=== PATIENT | female | born 1935 | race Hispanic/Latino ===

== ENCOUNTER 2016-08-27 17:42 | Inpatient (IN) | payer MEDICARE, MEDICAID ==
[~2016-08-27] VITALS: Ht 142.2 cm; Wt 39.0 kg
[~2016-08-27 17:42] MED LIST: ASPI81TA3 PO; CARV3.12 PO; DORZ10DR20 BOTH_EYES; LATA2.5D6; LOSA50TA37 PO; PRAV20TA2 PO; SYN75 PO
[2016-08-27 17:48] VITALS: BP 211/85; PULSE 99; RESP 16; O2SAT 92
[2016-08-27] MEDS ORDERED: METF500T4 PO (18:10)
[2016-08-27] MEDS ORDERED: FUR20 PO (18:10)
[2016-08-27] MEDS ORDERED: LATA2.5D6 BOTH_EYES (18:10)
--- NOTE | 2016-08-27 18:11 | ED.REPORT ---
HPI-General Illness Date of Service Aug 27, 2016 ED Provider: Kylie Corcoran MD An 81 year old female with a history of diabetes, hypothyroidism, HTN, valvular heart disease, and CHF presents to the ED complaining of weakness,altered mental status and mildly productive cough. fever onset 2 days ago, noted at 103 in triage today. Per daughter, today the weakness is so severe that the patient is unable to walk and has difficulty even sitting up. Per daughter, the patient can normally stand on her own. The patient also has a wound on her right ankle, having gone to wound clinic 4 days ago for treatment, and being seen by provider at her home for the wound 2 days ago. The daughter changed the wound dressings this morning. Nursing Notes Stated Complaint: WEAKNESS/FEVER/NUMBNESS Chief Complaint: General Complaint Nursing Notes Reviewed: Yes Allergies: Coded Allergies: Penicillins (Verified Allergy, Intermediate, Hives, 08/27/16) ciprofloxacin (Verified Allergy, Unknown, MD REQUESTED PT TO D/C - UNKNOWN WHY, 08/27/16) Scheduled Carvedilol (Coreg) 3.125 Mg Tablet 3.125 MG PO BID Dorzolamide HCl/Timolol Maleat (Dorzolamide-Timolol Eye Drops) 10 Ml Drops 1 GTT BOTH_EYES BID Furosemide (Furosemide) 20 Mg Tab 20 MG PO Q48H Latanoprost (Latanoprost) 2.5 Ml Drops 1 GTT BOTH_EYES HS Levothyroxine (Synthroid) 75 Mcg Tablet 75 MCG PO DAILYAC Losartan Potassium (Losartan Potassium) 50 Mg Tablet 50 MG PO DAILY Metformin (Metformin) 500 Mg Tablet 500 MG PO BIDWM Pravastatin (Pravastatin) 20 Mg Tablet 20 MG PO HS Scheduled PRN Aspirin (Aspirin) 81 Mg Tablet 81 MG PO DAILY PRN PRN PAIN/FEVER General Time Seen by MD: 18:02 Chief Complaint Weakness Hx Obtained From: Patient, Daughter, Other family... Arrived By: Walk-in Sudden in Onset?: No Symptom Duration: 2 days Severity: Current: Moderate Severity: Maximum: Moderate Recent Healthcare: Recent doctor visit Similar Sx Previous: No Past Medical History Past Medical History congestive heart failure chronic 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 hypothyroidism carotid artery disease with stenosis prolonged QT with syncope h/o hyponatremia hx of pericardial effusion arthritis valvular heart disease Denies history of [place] Reports: Diabetes mellitus, Hyperlipidemia, Hypertension, Denies: Stroke Reports: Depression Past Surgical History None Smoking History Never Smoker Social History currently living with daughter Alcohol Use: Denies alcohol use Drug Use: Denies drug use Other Social History: Good social support, , Lives with children Ambulatory Status Wheelchair Review of Systems Full Review of Systems Constitutional: Reports: Fatigue, Fever, Lethargy, Malaise, Weakness - generalized Respiratory: Reports: Prod cough, clear (sputum color not given) Neurologic: Reports: Weakness Complete sys rev & neg: except as marked. Physical Exam Vital Signs Vital Signs Date Time Temp Pulse Resp B/P Pulse Ox O2 Delivery O2 Flow Rate FiO2 08/27/16 20:19 100 17 96/48 96 Nasal Cannula 2 08/27/16 18:38 103 17 197/81 100 Nasal Cannula 2 08/27/16 17:48 39.5 99 16 211/85 92 Room Air Initial VS: Reviewed Alertness: Positive: Lethargic Distress / Hydration: Positive: Distress moderate Appearance / Presentation: Positive: Frail Head / Eyes: Atraumatic, Normocephalic, PERRL, EOMI Mouth: Positive: Mucous membranes dry Neck: Atraumatic, No JVD Respiratory / Chest: No respiratory distress Crackles in left base. Scattered wheezing in upper lobes anteriorly. Oxygen sat are 97%, no respiratory distress. Cardiovascular: Heart rate NL, Regular rhythm, Heart sounds NL Patient is well perfused. No lower extremity edema. Abdomen: Soft Back: Atraumatic, Full range of motion ulcer lateral malleolus Right side. 1x1cm, shallow, healing nicely. NO surrounding erythema Skin: Warm Perioral cyanosis. 1x1 cm shallow ulcer that is dressed on right lateral malleolus that is not infected and appears to be healing nicely. Mental Status: Positive: Lethargic Interpretation & Diagnostics Lab Results Interpretation Result Diagram: 08/27/16 1803 08/27/16 1803 Test 08/27/16 18:03 08/27/16 18:15 08/27/16 18:34 White Blood Count 19.8th/mm3 (3.8-10.1) Red Blood Count 4.34mil/mm3 (3.90-5.20) Hemoglobin 12.2g/dL (12.0-15.6) Hematocrit 37.0% (35.0-46.0) Mean Corpuscular Volume 85.3fL (81-100) Mean Corpuscular Hemoglobin 28.1pg (27.0-35.0) Mean Corpuscular Hemoglobin Concent 33.0% (32.0-37.0) Red Cell Distribution Width 14.1% (12.3-15.4) Platelet Count 255bil/L (150-400) Neutrophils (%) (Auto) 73.6% (40-74) Lymphocytes (%) (Auto) 15.5% (14-46) Monocytes (%) (Auto) 8.8% (4-12) Eosinophils (%) (Auto) 1.2% (0-5) Basophils (%) (Auto) 0.5% (0-3) Sodium Level 124mEq/L (134-144) Potassium Level 4.5mEq/L (3.5-5.2) Chloride Level 89mEq/L (97-108) Carbon Dioxide Level 19mmol/L (18-29) Blood Urea Nitrogen 21mg/dL (8-27) Creatinine 0.81mg/dL (0.57-1.00) Estimat Glomerular Filtration Rate 97mL/min (>59) Glucose Level 126mg/dL (60-99) Calcium Level 9.3mg/dL (8.5-10.1) Total Bilirubin 1.3mg/dL (0.0-1.2) Aspartate Amino Transf (AST/SGOT) 15U/L (0-50) Alanine Aminotransferase (ALT/SGPT) 8U/L (0-32) Alkaline Phosphatase 91U/L (25-165) Troponin T < 0.010ug/L (0.0-0.011) Pro-B-Type Natriuretic Peptide 1816pg/mL (0-738) Total Protein 8.9g/dL (6.4-8.4) Albumin 4.1g/dL (3.4-5.0) Procalcitonin 0.08ng/mL (0.00-0.08) Urine Legionella pneumophilia Ag Negative (Negative) Urine Color Yellow (YELLOW) Urine Appearance Clear (CLEAR,HAZY) Urine pH 6.0 (5.0-8.0) Urine Specific [place] 1.020 (1.003-1.035) Urine Protein Negativemg/dL (NEG,TRACE) Urine Glucose (UA) Negativemg/dL (NEGATIVE) Urine Ketones 15mg/dL (NEGATIVE) Urine Occult Blood Trace (NEGATIVE) Urine Nitrite Negative (NEGATIVE) Urine Bilirubin Negative (NEGATIVE) Urine Urobilinogen Normalmg/dL (NORMAL) Urine Leukocyte Esterase Negative (NEGATIVE) Urine RBC 0-2/hpf (0-2) Urine WBC 0-5/hpf (0-5) Urine Epithelial Cells Occasional/hpf (NONE-MOD) Urine Crystals None seen (NONE SEEN) Urine Bacteria None/hpf (NONE-FEW) Urine Hyaline Casts None/lpf (NONE) Urine Granular Casts None seen (NONE SEEN) Urine Waxy Casts None seen (NONE SEEN) Urine Red Blood Cell Casts None seen (NONE SEEN) Urine White Blood Cell Casts None seen (NONE SEEN) Urine Mucus None seen (None Seen) Urine Trichomonas None seen (NONE SEEN) Urine Yeast None (NONE SEEN) Urinalysis Comment None Urine Culture Reflexed Not indicated ECG Interpretation ECG Interpretation: Rate is 109. Sinus tachycardia. LVH with lateral ST depression. No STEMI. New compared to one year ago. Time: 19:04 Interpreted by: ED physician X-Ray Chest Interpretation Chest Xray Interpretation: IMPRESSION: Chronic interstitial changes. Dictated by: Angelina Olea M.D. on 08/27/2016 at 18:34 Approved by: Angelina Olea M.D. on 08/27/2016 at 18:35 Interpretation / Wet Read by: Wet read ED physician (In light of exam, hisotry and presentation I believe she is developing a Right lower lobe pneumonia. ), Interpret - Radiologist Re-Eval/Medical Decision Med Decision/Clinical Course 81-year-old woman presents with fever to 103 altered mental status tachycardia and pulmonary findings suggestive of a developing pneumonia with mildly productive cough and slightly altered mental status. Fluids and antibiotics are started. No evidence of STEMI. Some suggestion of mild heart failure. lactic acid is not elevated. Over the course of her emergency room stay her significantly elevated systolic pressure came down to the 80s. Additional fluid was given which she responded to nicely. Upgraded admission status to PCU due to noted developing hypotension. Source of Hx: Old records Time of Eval: 20:00 Patient Status: Condition unchanged Time of Eval: 20:26 Re-Evaluation/Progress Note: Rechecked patient. Blood pressure is in 90's systolic range with MAP of 63 which is signifigantly changed from inital blood pressure. Will do one more liter of fluid, take a second line and admit her to second floor of the hospital. Hospitalist is updated. Consultation #1: Referral / Consult Name: Kong Sosa MD Consulted With: Hospitalist Call Returned at: 20:11 Washing Machine Loader: Agrees with eval, Agrees with plan, Accepts admit Note: Discussed patient case with Dr. Sosa who accepts patient admit. Consultation #2: Consulted With: Hospitalist Call Returned at: 21:06 Note: updated on drop in BP and responsiveness to fluids. Will anticipate 2nd floor admit. Discharge & Departure Primary Impression: Sepsis Additional Impressions: Altered mental status Hyponatremia Pneumonia Disposition: ADMITTED TO HOSPITAL Referrals: Bessie Valdivia DO (PCP) Rayray Attestation Portions of this note were transcribed by Cecil Newman. I, Dr. Corcoran personally performed the history, physical exam and medical decision-making; I reviewed and confirmed the accuracy of the information in the transcribed note. Signed by: Rayray Aggarwal, 08/27/20162035. copies to: Bessie Valdivia Shawna L MD Aug 27, 2016 18:11 Cecil Newman Aug 27, 2016 18:21
[2016-08-27] MEDS ORDERED: ASPI-973 PO (18:12)
[2016-08-27] MEDS ORDERED: 0.9% Sodium Chloride 1,000 ML IV ONE ×3 (18:15→21:15)
[2016-08-27] MEDS ORDERED: cefTRIAXone Inj 2,000 MG in Dextrose 5% Minibag Plus 50 ML IV ONE (18:15)
[2016-08-27] MEDS ORDERED: Azithromycin Inj 500 MG in Dextrose 5% w/Vial Mate 250 ML IV ONE (18:15)
[2016-08-27 18:36] LABS: EOSINOPHILS % (AUTO) 1.2 % (0-5)
--- NOTE | 2016-08-27 18:36 | DRSVH ---
PROCEDURE: X-RAY CHEST ONE VIEW, PORTABLE ([id number]) INDICATIONS: cough TECHNIQUE: One view of the chest was acquired. COMPARISON: [facility], CR, XR CHEST 1VW (PORTABLE), 09/30/2015, 22:10. FINDINGS: Surgical changes and devices: None. Lungs and pleura: Chronic interstitial changes and calcified left upper lobe nodule are present. Mediastinum: Mediastinal contours appear normal. Heart size is normal. Bones and chest wall: No suspicious bony lesions. Overlying soft tissues appear unremarkable. IMPRESSION: Chronic interstitial changes. Dictated by: Angelina Olea M.D. on 08/27/2016 at 18:34 Approved by: Angelina Olea M.D. on 08/27/2016 at 18:35
[2016-08-27 18:38] VITALS: BP 197/81; PULSE 103; RESP 17; O2SAT 100
[2016-08-27 18:39] LABS: BASOPHILS % (AUTO) 0.5 % (0-3); MONOCYTES % (AUTO) 8.8 % (4-12); Mean Corpuscular Hemoglobin 28.1 pg (27.0-35.0); Mean Corpuscular Volume 85.3 fL (81-100); NEUTROPHILS % (AUTO) 73.6 % (40-74); Platelet Count 255 bil/L (150-400)
[2016-08-27 19:10] LABS: APPEARANCE,URINE CLEAR (CLEAR,HAZY); COLOR,URINE YELLOW (YELLOW); OCCULT BLOOD,URINE TRACE (NEGATIVE); UROBILINOGEN,URINE NORMAL (NORMAL)
[2016-08-27 19:15] LABS: TROPONIN T < 0.010 ug/L (0.0-0.011)
[2016-08-27 20:19] VITALS: BP 96/48; PULSE 100; RESP 17; O2SAT 96
[2016-08-27] MEDS ORDERED: Polyethylene Glycol (PEG) 17 Gm Powder PO PRN (20:25)
[2016-08-27] MEDS ORDERED: Alum-Mag Hydrox-Simeth 30 mL Suspension PO PRN (20:25)
[2016-08-27] MEDS ORDERED: Albuterol-Ipratropium 3 mL Inhalation Solution NEB PRN (20:25)
[2016-08-27] MEDS ORDERED: Glucose 40% Oral Gel 15 Gm Tube PO PRN (20:25)
[2016-08-27 21:43] VITALS: BP 118/65; PULSE 102; RESP 18; O2SAT 96
[2016-08-27 21:49] VITALS: BP 119/53; PULSE 89; PULSE 92; RESP 18; O2SAT 99
[2016-08-27] MEDS: Insulin LISPRO 300 Unit/3 mL Inj SUBQ SCH (22:00)
[2016-08-27] MEDS: Famotidine Inj 20 MG in IV Premix 1 EACH IV SCH (22:31)
--- NOTE | 2016-08-27 22:51 | NUR ---
Admit To floor from ED at 2145, accompanied by family members. Alert and oriented, but too weak to stand for transfer to bed. Russian speaking only. Family members interpreting for her and declined offered first aid attendant services. daughter to stay the night with her. Pt c/o chronic back pain, stating it's not too bad right now, rating it a 5/10. Heating pad applied to back and helpful. Sats on 2 liters are 99%. Unable to produce sputum sample yet. Viral PCR sent to lab. Has wound to right outer ankle, sustained during fall during trip to [place] in June. Family state she sees wound care and has visiting nurse for dressing changes. Currently dressed with a square of medicated gauze, foam, and kerlix. Will notify wound care of admit. Plan of care explained to family and patient, and no questions at this time.
[2016-08-27] MEDS: Doxycycline Inj 100 MG in Dextrose 5% Minibag Plus 100 ML IV SCH (23:05)
[2016-08-27] MEDS: predniSONE 20 mg Tablet PO SCH (23:14)
--- NOTE | 2016-08-27 23:37 | PCM.HPMED ---
Subjective Date of Service Aug 27, 2016 Primary Provider: Admitting Physician: Primary Care Physician: Bessie Valdivia DO Attending Physician: Chief Complaint: weakness fever numbness History of Present Illness: Patient is a 81 year old female with a history of diabetes, hypothyroidism, HTN , valvular heart disease, and CHF, chronic back pain, hungarian speaking only. She presented to the ED with family complaining of weakness, productive cough with a little amount of sputum, and fever onset 2 days ago. Associated with painful cough, runny nose, myalgias. Daughter reported that today the weakness is so severe that the patient is unable to walk and has difficulty even sitting up, but the patient can normally stand on her own. Patient has taken tylenol for pain and fever which helped minimally. Additionally, patient stated that she has a wound on her right ankle and chronic back pain. Patient is followed by the wound clinic and was seen four days ago. Patient seen by PCP two days ago for wound check and upper respiratory symptoms advised patient to go to ED should symptoms not improve. Patient described her weakness as all over, previously able to ambulate with minimal assistance. Patient denies syncope, dysuria, constipation, diarrhea, nausea, vomiting, blood in cough, blood in stool. Review of Systems: A comprehensive review of systems was conducted with the patient and found to be negative except as above in the History of Present Illness. Allergies Coded Allergies: Penicillins (Verified Allergy, Intermediate, Hives, 08/27/16) ciprofloxacin (Verified Allergy, Unknown, MD REQUESTED PT TO D/C - UNKNOWN WHY, 08/27/16) Home Medications Carvedilol (Coreg) 3.125 Mg Tablet 3.125 MG PO BID Dorzolamide HCl/Timolol Maleat (Dorzolamide-Timolol Eye Drops) 10 Ml Drops 1 GTT BOTH_EYES BID Furosemide (Furosemide) 20 Mg Tab 20 MG PO Q48H Latanoprost (Latanoprost) 2.5 Ml Drops 1 GTT BOTH_EYES HS Levothyroxine (Synthroid) 75 Mcg Tablet 75 MCG PO DAILYAC Losartan Potassium (Losartan Potassium) 50 Mg Tablet 50 MG PO DAILY Metformin (Metformin) 500 Mg Tablet 500 MG PO BIDWM Pravastatin (Pravastatin) 20 Mg Tablet 20 MG PO HS Aspirin (Aspirin) 81 Mg Tablet 81 MG PO DAILY PRN PRN PAIN/FEVER PMH congestive heart failure chronic 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 hypothyroidism carotid artery disease with stenosis prolonged QT with syncope h/o hyponatremia hx of pericardial effusion arthritis valvular heart disease Denies history of [place] Reports: Diabetes mellitus, Hyperlipidemia, Hypertension, Surgical History No prior surgeries Family History Family history of mother and father unknown Social History Hx Alcohol Use: No Hx Substance Use: No Hx Tobacco Use: No Smoking Status: Never Smoker Exam Vital Signs Vital Sign - Last Date Time Temp Pulse Resp B/P Pulse Ox O2 Delivery O2 Flow Rate FiO2 08/27/16 20:19 100 17 96/48 96 Nasal Cannula 2 08/27/16 17:48 39.5 Exam General: No acute distress, frail appearing, appropriately interactive, hungarian speaking only HEENT: Normocephalic, atraumatic. External ears without defect. Pupils equal, round, and reactive to light and accommodation. Anicteric sclerae, moist conjunctivae, and no lid lag. Oropharynx free of erythema and cobble stoning with dry mucosa. Neck: Supple with full range of motion. No jugular venous distension. No bruits. No lymphadenopathy or thyromegaly. Cardiovascular:Tachycardic and rhythm with no murmurs, rubs, or gallops appreciated Pulmonary: Bilateral expiratory/inspiratory wheezes, fine crackles at bases No rhonchi. Normal respiratory effort with no use of accessory muscles. Productive cough white sputum Abdomen: Bowel tones present. Soft, nontender, nondistended. No hepatosplenomegaly or masses appreciated. Extremities: No clubbing, cyanosis, edema, or lymphadenopathy appreciated. Normal cap refill Skin: Warm to touch, poor turgor, and texture; no rash, or subcutaneous nodules appreciated. Ulceration to right medial maleoli Neurological: Cranial nerves grossly intact. 4/5 muscle strength, tone, and bulk. Patient able to move extremites against gravity not against resistance, needs assistance to sit up Psychiatric: Normal mood and affect. Alert and oriented to person, place, and time. Lab and Diagnostics Result Diagram: 08/27/16180208/27/161802 X-Rays, CTs and MRIs Chest Xray IMPRESSION: Chronic interstitial changes. Dictated by: Angelina Olea M.D. on 08/27/2016 at 18:34 Approved by: Angelina Olea M.D. on 08/27/2016 at 18:35 12-lead ECG ECG Interpretation: Rate is 109. Sinus tachycardia. LVH with lateral ST depression. No STEMI. New compared to one year ago. Time: 19:04 Interpreted by: ED physician Assessment & Plan Patient is a 81 year old female with a history of diabetes, hypothyroidism, HTN , valvular heart disease, and CHF, chronic back pain, hungarian speaking only. Admitted for sepsis secondary to RLL pneumonia, dehydration, EL. 1. Sepsis - Patient meets criteria, T 39.5, tachycardia, WCT 19.5, likely RLL pneumonia on CXR, source of infection pneumonia - Continue IVF Bolus as needed for MAP <64. Maintenance fluids 100 mls/hr - IV antibiotics Doxycycline 100 BID, Ceftrixone 1 g BID for pneumonia - Repeat CBC and CMP in AM 2. Pneumonia, Acute - evidence of RLL pneumonia on CXR, likley CAP pneumonia - Continue IVF as above #1 - Continue Antibiotics as above #1 - Prednisone 40 mg for 5 days - Duoneb Q6 - Viral PCR ordered to R.o secondary viral infection - Sputum cultures ordered, pending - Urine pneumonia AG ordered, pending 3. 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 - H/H stable - continue to monitor hypothyroidism Continue Home meds carotid artery disease with stenosis, presumed stable - Continue to monitor prolonged QT with syncope - Avoid QT prolonging medications arthritis - Continue tylenol for pain - Reassess pain medication once BP stabilizes valvular heart disease, unknown chronicity, presumed stable - Continue to monitor CODE STATUS: FULL CODE DVT prophylaxis: SQ heparin Patient is admitted under inpatient status with expected length of stay greater than 2 midnights due to severity of presenting symptoms, risk of adverse event, and complexity of treatment plan. Pain Evaluation: Adequate Pain Control VTE Prophylaxis: Sub-Q Heparin (Unfractionated) Resuscitation Status: CPR: Attempt Resuscitation Attending Statement The patient was seen and examined together with Dr. Joyner on 08/27 and I agree with the history, exam and plan as outlined in the note above. MEGAN JOYNER DO Aug 27, 2016 20:38 Kong Sosa MD Aug 28, 2016 00:57
[2016-08-27 23:46] VITALS: BP 150/71; RESP 20; O2SAT 99
[2016-08-27] MEDS: Heparin 5,000 Unit/mL Inj SUBQ SCH (23:58)
[2016-08-28] VITALS (8 sets, daily range): BP systolic 151–168; BP diastolic 51–85; PULSE 67–89; RESP 16–22; O2SAT 95–100
--- NOTE | 2016-08-28 00:12 | NUR ---
Pain Declines pain meds at present - states she's OK for now.
[2016-08-28] MEDS: 0.9% Sodium Chloride 1,000 ML IV SCH ×3 (00:43→17:23)
--- NOTE | 2016-08-28 04:53 | NUR ---
Sats/activity Sats have been in mid-upper 90's on 2 liters nasal cannula. Unable to obtain sputum sample yet. Up to commode with 1 assist. Tolerating antibiotics OK. Family in room with patient.
[2016-08-28] MEDS: cefTRIAXone Inj 1,000 MG in Dextrose 5% Minibag Plus 50 ML IV SCH ×2 (05:21→18:10)
[2016-08-28 06:20] LABS: BASOPHILS % (AUTO) 0.1 % (0-3); EOSINOPHILS % (AUTO) 0 % (0-5); MONOCYTES % (AUTO) 0.8 % (4-12); Mean Corpuscular Hemoglobin 28.6 pg (27.0-35.0); Mean Corpuscular Volume 86.5 fL (81-100); NEUTROPHILS % (AUTO) 93.8 % (40-74); Platelet Count 212 bil/L (150-400)
[2016-08-28] MEDS: Famotidine Inj 20 MG in IV Premix 1 EACH IV SCH (10:08)
[2016-08-28] MEDS: Heparin 5,000 Unit/mL Inj SUBQ SCH ×2 (10:08→17:23)
[2016-08-28] MEDS: Doxycycline Inj 100 MG in Dextrose 5% Minibag Plus 100 ML IV SCH ×2 (10:09→20:42)
[2016-08-28] MEDS: predniSONE 20 mg Tablet PO SCH (10:09)
[2016-08-28] MEDS: Insulin LISPRO 300 Unit/3 mL Inj SUBQ SCH ×4 (10:10→20:41)
--- NOTE | 2016-08-28 15:19 | NUR ---
Evaluation completed. Please go to "Notes" then click on "Assessments and Notes" (bottom left corner of screen). Then select appropriate discipline tab on top of screen.
--- NOTE | 2016-08-28 15:57 | NUR ---
Wound Care Wound evaluation order received patient seen at bedside, patient is current with the wound center under the care of Dr Jhoana Leo DPM. 81 yo female admitted to [facility] with increasing weakness. Patient presents with an ulceration at right lateral ankle which measures 2.2 cm L x 0.8 cm W x 0.3 cm D, wound is 80% fibrin and 20% granulation tissue, there are stasis changes of the skin of the right lower leg, drainage is scant and yellowish, there is no apparent infection at this wound. Stable stasis ulcer, this was mechanically cleaned with saline and moist gauze and redressed with hydrogel and adhesive foam. Will recheck on this patient in 48 hours.
[2016-08-28] MEDS ORDERED: Donnatal-Lido-Mylant 1:1:1 15 mL Syringe PO PRN (17:30)
[2016-08-28] MEDS ORDERED: guaiFENesin DM 100-10 mg/5 mL 118 mL Syrup PO PRN (17:30)
[2016-08-28] MEDS ORDERED: Glucose 40% Oral Gel 15 Gm Tube PO PRN (17:55)
--- NOTE | 2016-08-28 17:55 | PCM.PNMED ---
Subjective Date of Service Aug 28, 2016 Subjective 81 year old female with a history of diabetes, hypothyroidism, HTN, valvular heart disease, and CHF, chronic back pain, singaporean speaking only. She presented to the ED with family complaining of weakness, productive cough. She continues to feel mild dyspnea, cough, chest heaviness mostly related to coughing. She is eating and drinking. Exam Vital Signs Vital Sign - Last Date Time Temp Pulse Resp B/P Pulse Ox O2 Delivery O2 Flow Rate FiO2 08/28/16 16:49 36.3 89 16 164/85 100 Nasal Cannula 2.00 Intake and Output 08/27/16 08/27/16 08/28/16 Cumulative From/Thru 15:00 23:00 07:00 08/27/16 17:48 - 08/28/16 05:51 Intake Total 2300 ml 1665 ml 3965 ml Output Total 150 ml 300 ml 450 ml Balance 2150 ml 1365 ml 3515 ml Intake Oral 100 ml 100 ml IV Total 2300 ml 1565 ml 3865 ml Output Urine Total 150 ml 300 ml 450 ml # Voids 4 4 # Bowel Movements 2 2 Exam General: Thin elderly woman no acute distress HEENT: sclerae anicteric, oral mucosa moist Neck: no JVD Chest: Bilateral basilar inspiratory crackles Cardiac: S1S2, no murmur, regular Abdomen: BS normal, non-tender Extremities: No edema Neuro: Alert Hebrew-speaking, cranial nerves symmetric, movement and coordination seems normal IVs and Medications Medications Reviewed: Medications were reviewed in detail Lab and Diagnostics Result Diagram: 08/28/16 0600 08/28/16 0600 X-Rays, CTs and MRIs Chest Xray IMPRESSION: Chronic interstitial changes. Dictated by: Angelina Olea M.D. on 08/27/2016 at 18:34 Approved by: Angelina Olea M.D. on 08/27/2016 at 18:35 12-lead ECG ECG Interpretation: Rate is 109. Sinus tachycardia. LVH with lateral ST depression. No STEMI. New compared to one year ago. Time: 19:04 Interpreted by: ED physician Assessment & Plan Patient is a 81 year old female with a history of diabetes, hypothyroidism, HTN , valvular heart disease, and CHF, chronic back pain, singaporean speaking only. Admitted for sepsis secondary to RLL pneumonia, dehydration. Acute and/or high-risk conditions: #. Sepsis - Patient meets criteria, T 39.5, tachycardia, WCT 19.5, likely RLL pneumonia on CXR, source of infection pneumonia - Continue IVF Bolus as needed for MAP <64. Maintenance fluids 100 mls/hr - IV antibiotics Doxycycline 100 BID, Ceftrixone 1 g BID for pneumonia - Repeat CBC and CMP in AM #. Pneumonia, Acute - evidence of RLL pneumonia on CXR, likley CAP pneumonia - Continue IVF as above #1 - Continue Antibiotics as above #1 - Duoneb Q6 - Viral PCR negative - Sputum cultures ordered, pending - Urine pneumonia AG negative #. Chest pain. EKG reviewed with no significant findings at time of symptoms. Suspect coughing related esophageal or musculoskeletal discomfort - Cough syrup. - Trial of GI mix #. Type II diabetes mellitus - 4 times a day capillary blood glucose - Glucose control goals: Random less than 180, fasting less than 140, none less than 70 - Insulin as needed, divided 50-50 long-acting and nutritional/correctional Resolving, stable or Chronic conditions #. History of diastolic congestive heart failure. LVEF 60% in 08/16. Mild aortic stenosis. - Continue home medications - Hold BP medications until pressure stabilizes #. 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 hypothyroidism Continue Home meds #. carotid artery disease with stenosis, presumed stable - Continue to monitor #. prolonged QT with syncope - Avoid QT prolonging medications #. arthritis - Continue tylenol for pain - Reassess pain medication once BP stabilizes CODE STATUS: FULL CODE DVT prophylaxis: SQ heparin Patient is admitted under inpatient status with expected length of stay greater than 2 midnights due to severity of presenting symptoms, risk of adverse event, and complexity of treatment plan. VTE Prophylaxis: Sub-Q Heparin (Unfractionated) VTE Mechanical Devices: Intermittant Pneumatic CD Resuscitation Status: CPR: Attempt Resuscitation Time spent 35 minutes Yusef Everett MD Aug 28, 2016 17:55
--- NOTE | 2016-08-28 19:13 | NUR ---
Chest Pain Pt c/o 6/10 chest pain, EKG ordered and MD made aware. Per MD no huge changes on EKG, will order GI cocktail. Reassess pt after 20min pt stating pain 2/10. Report given to oncoming RN for GI cocktail.
[2016-08-28] MEDS ORDERED: cefTRIAXone Inj 1,000 MG in Dextrose 5% Minibag Plus 50 ML IV SCH (21:00)
[2016-08-28] MEDS ORDERED: Insulin GLARgine 100 Unit/mL Syringe SUBQ SCH (21:00)
[2016-08-28] MEDS ORDERED: Azithromycin Inj 500 MG in Dextrose 5% w/Vial Mate 250 ML IV SCH (21:00)
[2016-08-28] MEDS: guaiFENesin DM 200-20 mg/10 mL Syrup PO PRN (21:03)
[2016-08-29] VITALS (11 sets, daily range): BP systolic 150–225; BP diastolic 79–94; PULSE 66–94; RESP 18–20; O2SAT 96–100
[2016-08-29] MEDS: Heparin 5,000 Unit/mL Inj SUBQ SCH ×3 (02:34→17:07)
[2016-08-29 05:14] LABS: Mean Corpuscular Hemoglobin 28.4 pg (27.0-35.0); Mean Corpuscular Volume 85.7 fL (81-100)
[2016-08-29 05:39] LABS: TROPONIN T 0.01 ug/L (0.0-0.011)
[2016-08-29] MEDS ORDERED: Potassium Chloride 20 mEq SR Tablet PO ONE (06:15)
[2016-08-29] MEDS: cefTRIAXone Inj 1,000 MG in Dextrose 5% Minibag Plus 50 ML IV SCH ×2 (06:26→18:04)
[2016-08-29] MEDS ORDERED: predniSONE 10 mg Tablet PO SCH (08:00)
[2016-08-29] MEDS: Insulin LISPRO 300 Unit/3 mL Inj SUBQ SCH ×4 (08:17→20:56)
--- NOTE | 2016-08-29 11:00 | NUR ---
Hypertension Pt SBP > 170, MD made aware, no new orders at this time. Pt denies headache. Ongoing care.
[2016-08-29] MEDS: Doxycycline Inj 100 MG in Dextrose 5% Minibag Plus 100 ML IV SCH ×2 (14:27→20:41)
--- NOTE | 2016-08-29 16:08 | PCM.PNMED ---
Subjective Date of Service Aug 29, 2016 Subjective 81 year old female with a history of diabetes, hypothyroidism, HTN, valvular heart disease, and CHF, chronic back pain, thai speaking only. She presented to the ED with family complaining of weakness, productive cough. She reports improved breathing. She is eating and drinking. She feels weak especially when sitting up and standing. Exam Vital Signs Vital Sign - Last Date Time Temp Pulse Resp B/P Pulse Ox O2 Delivery O2 Flow Rate FiO2 08/29/16 12:35 36.5 66 18 174/88 96 Room Air 08/29/16 06:14 2.00 Intake and Output 08/28/16 08/28/16 08/29/16 Cumulative From/Thru 14:59 22:59 06:59 08/27/16 17:48 - 08/29/16 06:47 Intake Total 1493 ml 150 ml 5608 ml Output Total 500 ml 1100 ml 2050 ml Balance 993 ml -950 ml 3558 ml Intake Oral 600 ml 150 ml 850 ml IV Total 893 ml 4758 ml Output Urine Total 500 ml 1100 ml 2050 ml # Voids 1 5 # Bowel Movements 1 2 5 Exam General: Thin elderly woman no acute distress HEENT: sclerae anicteric, oral mucosa moist Neck: no JVD Chest: Bilateral basilar inspiratory crackles Cardiac: S1S2, no murmur, regular Abdomen: BS normal, non-tender Extremities: No edema Neuro: Alert cranial nerves symmetric, movement and coordination seems normal IVs and Medications Medications Reviewed: Medications were reviewed in detail Lab and Diagnostics Result Diagram: 08/29/16 0430 08/29/16 0430 X-Rays, CTs and MRIs Chest Xray IMPRESSION: Chronic interstitial changes. Dictated by: Angelina Olea M.D. on 08/27/2016 at 18:34 Approved by: Angelina Olea M.D. on 08/27/2016 at 18:35 12-lead ECG ECG Interpretation: Rate is 109. Sinus tachycardia. LVH with lateral ST depression. No STEMI. New compared to one year ago. Time: 19:04 Interpreted by: ED physician Assessment & Plan Patient is a 81 year old female with a history of diabetes, hypothyroidism, HTN , valvular heart disease, and CHF, chronic back pain, thai speaking only. Admitted for sepsis secondary to RLL pneumonia, dehydration. Acute and/or high-risk conditions: #. Sepsis, acute. On admission Patient meets criteria, T 39.5, tachycardia, WCT 19.5, likely RLL pneumonia on CXR, source of infection pneumonia. Initially received aggressive IV hydration. Now has good urine output on day 1 of hospitalization. -Discontinue IV fluids and encourage by mouth fluids - Continue IV antibiotics Doxycycline 100 BID, Ceftrixone 1 g BID for pneumonia - Repeat CBC and CMP in AM #. Pneumonia, Acute.E Vidence of RLL pneumonia on CXR, likley CAP pneumonia - Continue IVF as above #1 - Continue Antibiotics as above #1 - Duoneb Q6 - Viral PCR negative - Sputum cultures ordered, pending - Urine pneumonia AG negative #. Hypertensive urgency, acute. Patient has developed systolic blood pressures greater than 200 mmHg on day 2 of hospitalization. Likely related to fluid resuscitation and stress of illness. Her home antihypertensives were held on admission due to concerns about hemodynamic instability and sepsis. - Resume carvedilol and losartan - IV hydralazine as needed #. Chest pain. EKG reviewed with no significant findings at time of symptoms. Suspect coughing related esophageal or musculoskeletal discomfort - Cough syrup. #. Type II diabetes mellitus. Poor glucose control over the first day of hospitalization. - 4 times a day capillary blood glucose - Glucose control goals: Random less than 180, fasting less than 140, none less than 70 - Increase glargine and lispro to 12 units per day, divided 50-50 long-acting and nutritional/correctional Resolving, stable or Chronic conditions #. History of diastolic congestive heart failure. LVEF 60% in 08/16. Mild aortic stenosis. - Continue home medications - Hold BP medications until pressure stabilizes #. 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 hypothyroidism Continue Home meds #. carotid artery disease with stenosis, presumed stable - Continue to monitor #. prolonged QT with syncope - Avoid QT prolonging medications #. arthritis - Continue tylenol for pain - Reassess pain medication once BP stabilizes CODE STATUS: FULL CODE DVT prophylaxis: SQ heparin Patient is admitted under inpatient status with expected length of stay greater than 2 midnights due to severity of presenting symptoms, risk of adverse event, and complexity of treatment plan. VTE Prophylaxis: Sub-Q Heparin (Unfractionated) VTE Mechanical Devices: Intermittant Pneumatic CD Resuscitation Status: CPR: Attempt Resuscitation Time spent 35 minutes Yusef Everett MD Aug 29, 2016:07
--- NOTE | 2016-08-29 16:12 | NUR ---
Social Work Note: Initial Assessment Data& Assessment: EMR reviewed. SW met with pt and pt family at bedside to discuss discharge planning with the assistance of the premix operator concentrate, [place] role explained. Corinne Jiang is a 81 year old female admitted on 08/27/2016 for sepsis. Pt has Medicare and [employer] insurance coverage. Pt sees Bessie Valdivia DO for primary care. Pt lives in a small house behind her sons home in [place]. Pt daughter transports her to appointments. Pt sons family assists pt with any needs but pt remains independent at baseline with her ADL's. Pt does use a cane and walker for ambulation. Pt does not have HH or SNF hx. Pt does not have LTC insurance or VA benefits. SW to follow up with pt and pt family regarding Advance Directive paperwork. PT is recommending SNF at this time, however pt at a facility and pt prefers to remain at home. Pt family is supportive of this. SW discussed home health services with pt and pt family and provided list for preferences. SW to follow up with pt and pt family regarding home health preferences. SW to continue to follow. Pt and pt family deny any other needs at this time. Plan: Anticipated discharge home via POV with home health. List provided for preferences. SW to follow up with pt and pt family regarding home health preferences. SW to follow up with pt and pt family regarding Advance Directive paperwork. SW to continue to follow. Pt and pt family deny any other needs at this time. HARVINDER Rocha Addendum: 08/29/16 at 1617 by SARI RAMEY Amended: Links added.
--- NOTE | 2016-08-29 18:39 | NUR ---
HTN pt BPs at 1647 225/89, made aware. New orders for 1.25mb Vasotec (given at 1615), 3.125mg carvedilol and 50mg losartan given at 1708. Pt BP at 1756 174/86. pt denied headache. Will report to oncoming RN.
[2016-08-29] MEDS ORDERED: Insulin GLARgine 100 Unit/mL Syringe SUBQ SCH (21:00)
[2016-08-30] VITALS (12 sets, daily range): BP systolic 128–193; BP diastolic 63–92; PULSE 64–84; RESP 18–20; O2SAT 95–98
--- NOTE | 2016-08-30 00:20 | NUR ---
Affect Pt more lethargic than previous HS. Family states pt does not make sense at times during conversation and is not so passive at home. VSS. Pt denies any discomfort and settled in bed.
[2016-08-30] MEDS: Heparin 5,000 Unit/mL Inj SUBQ SCH ×3 (00:56→16:38)
[2016-08-30 05:11] LABS: Mean Corpuscular Volume 84.9 fL (81-100)
[2016-08-30] MEDS: cefTRIAXone Inj 1,000 MG in Dextrose 5% Minibag Plus 50 ML IV SCH ×2 (05:57→17:37)
[2016-08-30] MEDS: Insulin LISPRO 300 Unit/3 mL Inj SUBQ SCH ×5 (07:50→21:30)
[2016-08-30] MEDS: Doxycycline Inj 100 MG in Dextrose 5% Minibag Plus 100 ML IV SCH ×2 (10:10→21:27)
--- NOTE | 2016-08-30 14:17 | NUR ---
Social Work: Continued Discharge Planning D: Pt discussed in am rounds. Pt is not medically stable for discharge at this time but is anticipated to be ready for d/c in 1-2 days. PT recommendation is for home with HH; pt was kylie to ambulate 200 feet with FWW. HORSE IDENTIFIER met with pt and daughter at bedside with the assistance of [employer]. PT recommendation reviewed with pt and dtr. HH CHOICE LIST PROVIDED. Pt and family would like to review services with the rest of the family. They are not sure that the pt requires this service. They have no preference for [facility] if they were to agree to a referral. Per Vendor Calendar, referral would go to [facility] . F2F completed and in folder for MD signature. A: Pt who lives at home with family. P: Anticipate to discharge home via POV once medically stable; HORSE IDENTIFIER to follow up with pt and family re: HH prior to discharge; referral would go to [facility] as pt's family has no preference. HORSE IDENTIFIER to continue to follow. HARVINDER Russell Addendum: 08/30/16 at 1607 by AGATA HOFFMAN SS HORSE IDENTIFIER [facility]; pt is currently open for services with this pt. Access provided.
--- NOTE | 2016-08-30 17:14 | NUR ---
Wound Care Patient seen at bedside for reassessment of right lateral ankle wound. Measurements unchanged from previous visit but wound bed is improved in that there is more granulation tissue in the base of the wound. No signs/ symptoms of infection at this time. Wound was mechanically cleaned with saline moist gauze and redressed with hydrogel and adhesive foam dressing. Improving will need to follow up at the wound center on discharge. Dressing to be changed next by Nursing on 09/01/16. WC will reassess on 09/03.
--- NOTE | 2016-08-30 17:24 | PCM.PNMED ---
Subjective Date of Service Aug 30, 2016 Subjective 81 year old female with a history of diabetes, hypothyroidism, HTN, valvular heart disease, and CHF, chronic back pain, qatari speaking only. She presented to the ED with family complaining of weakness, productive cough. She is eating and drinking. She still feels weak especially when ambulating. Exam Vital Signs Vital Sign - Last Date Time Temp Pulse Resp B/P Pulse Ox O2 Delivery O2 Flow Rate FiO2 08/30/16 16:30 36.8 72 18 193/75 98 Room Air 08/29/16 06:14 2.00 Intake and Output 08/29/16 08/29/16 08/30/16 Cumulative From/Thru 15:00 23:00 07:00 08/27/16 17:48 - 08/30/16 06:49 Intake Total 200 ml 276 ml 470 ml 6554 ml Output Total 200 ml 2250 ml Balance 200 ml 276 ml 270 ml 4304 ml Intake Oral 150 ml 200 ml 1200 ml IV Total 50 ml 276 ml 270 ml 5354 ml Output Urine Total 200 ml 2250 ml # Voids 5 # Bowel Movements 5 Exam General: Thin elderly woman no acute distress HEENT: sclerae anicteric, oral mucosa moist Neck: Supple, no JVD Chest: Bilateral basilar inspiratory crackles Cardiac: S1S2, no murmur, regular Abdomen: BS normal, non-tender Extremities: No edema Neuro: Alert cranial nerves symmetric Lab and Diagnostics Result Diagram: 08/30/16 0442 08/30/16 0442 X-Rays, CTs and MRIs Chest Xray IMPRESSION: Chronic interstitial changes. Dictated by: Angelina Olea M.D. on 08/27/2016 at 18:34 Approved by: Angelina Olea M.D. on 08/27/2016 at 18:35 12-lead ECG ECG Interpretation: Rate is 109. Sinus tachycardia. LVH with lateral ST depression. No STEMI. New compared to one year ago. Time: 19:04 Interpreted by: ED physician Assessment & Plan Patient is a 81 year old female with a history of diabetes, hypothyroidism, HTN , valvular heart disease, and CHF, chronic back pain, qatari speaking only. Admitted for sepsis secondary to RLL pneumonia, dehydration. Acute and/or high-risk conditions: #. Sepsis, acute. On admission Patient meets criteria, T 39.5, tachycardia, WCT 19.5, likely RLL pneumonia on CXR, source of infection pneumonia. Initially received aggressive IV hydration. Now has good urine output on day 1 of hospitalization. - encourage by mouth fluids - Continue IV antibiotics Doxycycline 100 BID, Ceftrixone 1 g BID for pneumonia - Repeat CBC in AM #. Pneumonia, Acute.Evidence of RLL pneumonia on CXR, viktorialey CAP pneumonia - Continue IVF as above #1 - Continue Antibiotics as above #1 - Duoneb Q6 - Viral PCR negative - Sputum cultures ordered, pending - Urine pneumonia AG negative #. Hypertensive urgency, acute. Patient has developed systolic blood pressures greater than 200 mmHg on day 2 of hospitalization. Likely related to fluid resuscitation and stress of illness. Her home antihypertensives were held on admission due to concerns about hemodynamic instability and sepsis. - Resume carvedilol and losartan - IV hydralazine as needed #. Chest pain. EKG reviewed with no significant findings at time of symptoms. Suspect coughing related esophageal or musculoskeletal discomfort - Cough syrup. #. Type II diabetes mellitus. Poor glucose control over the first day of hospitalization. She has been hypoglycemic in setting of poor by mouth intake. - 4 times a day capillary blood glucose - Glucose control goals: Random less than 180, fasting less than 140, none less than 70 - Due to use lispro and nutritional insulin units per day, divided 50-50 long- acting and nutritional/correctional Resolving, stable or Chronic conditions #. History of diastolic congestive heart failure. LVEF 60% in 08/16. Mild aortic stenosis. - Continue home medications - Hold BP medications until pressure stabilizes #. 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 hypothyroidism Continue Home meds #. carotid artery disease with stenosis, presumed stable - Continue to monitor #. prolonged QT with syncope - Avoid QT prolonging medications #. arthritis - Continue tylenol for pain - Reassess pain medication once BP stabilizes CODE STATUS: FULL CODE DVT prophylaxis: SQ heparin Patient is admitted under inpatient status with expected length of stay greater than 2 midnights due to severity of presenting symptoms, risk of adverse event, and complexity of treatment plan. VTE Prophylaxis: Sub-Q Heparin (Unfractionated) VTE Mechanical Devices: Intermittant Pneumatic CD Resuscitation Status: CPR: Attempt Resuscitation Time spent 25 minutes Yusef Everett MD Aug 30, 2016 17:24
--- NOTE | 2016-08-30 19:12 | NUR ---
Hypertension/ Low Blood sugar pt SBP over 170s through the day. AM meds given with little effect. Vasotec and Dyazide ordered by Dr Everett given with SPB 193/75 at 1630. Pt reassessed frequently with new BP 176/92 at 1848. Pt BG this am 68, held morning lispro, in afternoon pt BG 149 given 2 units for coverage. At dinner time pt BG 74, made aware, new order to give 2units lispro for meal coverage and to make sure pt is eating. Report given to oncoming RN. Oncoming RN will reassess.
[2016-08-30] MEDS ORDERED: Insulin GLARgine 100 Unit/mL Syringe SUBQ SCH ×2 (21:00)
[2016-08-31] VITALS (7 sets, daily range): BP systolic 128–189; BP diastolic 64–79; PULSE 65–73; RESP 16–20; O2SAT 97–99
[2016-08-31] MEDS: Heparin 5,000 Unit/mL Inj SUBQ SCH ×3 (00:07→16:59)
--- NOTE | 2016-08-31 05:19 | NUR ---
Held pm Lantus Pt blood sugar last night 99. made aware of pt's low blood sugar during the early am and afternoon. Held pm dose of Lantus. Pt has poor appetite and enc to eat snacks. Heating pad effective for chronic back pain. Telemetry SR in 80s. No c/o chest pain/discomfort.
[2016-08-31] MEDS: cefTRIAXone Inj 1,000 MG in Dextrose 5% Minibag Plus 50 ML IV SCH ×2 (06:24→17:02)
[2016-08-31] MEDS: Insulin LISPRO 300 Unit/3 mL Inj SUBQ SCH ×2 (07:51→12:31)
[2016-08-31] MEDS: Doxycycline Inj 100 MG in Dextrose 5% Minibag Plus 100 ML IV SCH ×2 (09:15→21:58)
[2016-08-31] MEDS: guaiFENesin DM 200-20 mg/10 mL Syrup PO PRN ×2 (12:37→22:16)
--- NOTE | 2016-08-31 14:38 | PCM.PNMED ---
Subjective Date of Service Aug 31, 2016 Subjective 81 year old female with a history of diabetes, hypothyroidism, HTN, valvular heart disease, and CHF, chronic back pain, surinamese speaking only. She presented to the ED with family complaining of weakness, productive cough. Interviewed with shop laborer today. She is eating and drinking. She still feels weak. She feels cough is improving. She has not ambulated significantly. Exam Vital Signs Vital Sign - Last Date Time Temp Pulse Resp B/P Pulse Ox O2 Delivery O2 Flow Rate FiO2 08/31/16 12:25 36.5 70 16 144/79 98 Room Air 08/29/16 06:14 2.00 Intake and Output 08/30/16 08/30/16 08/31/16 Cumulative From/Thru 15:00 23:00 07:00 08/27/16 17:48 - 08/31/16 06:26 Intake Total 1795 ml 302 ml 8651 ml Output Total 1600 ml 0 ml 3850 ml Balance 195 ml 302 ml 4801 ml Intake Oral 1500 ml 100 ml 2800 ml IV Total 295 ml 202 ml 5851 ml Output Urine Total 1600 ml 0 ml 3850 ml # Voids 5 # Bowel Movements 1 6 Exam General: Thin elderly woman no acute distress HEENT: sclerae anicteric, oral mucosa moist Neck: Supple, no JVD Chest: Bilateral basilar inspiratory crackles, no dullness to percussion Cardiac: S1S2, regular Abdomen: BS normal, non-tender Extremities: No edema Neuro: Alert cranial nerves symmetric IVs and Medications Medications Reviewed: Medications were reviewed in detail Lab and Diagnostics Result Diagram: 08/30/1644108/30/16 0442 X-Rays, CTs and MRIs Chest Xray IMPRESSION: Chronic interstitial changes. Dictated by: Angelina Olea M.D. on 08/27/2016 at 18:34 Approved by: Angelina Olea M.D. on 08/27/2016 at 18:35 12-lead ECG ECG Interpretation: Rate is 109. Sinus tachycardia. LVH with lateral ST depression. No STEMI. New compared to one year ago. Time: 19:04 Interpreted by: ED physician Assessment & Plan Patient is a 81 year old female with a history of diabetes, hypothyroidism, HTN , valvular heart disease, and CHF, chronic back pain, surinamese speaking only. Admitted for sepsis secondary to RLL pneumonia, dehydration. Acute and/or high-risk conditions: #. Sepsis, acute. On admission Patient meets criteria, T 39.5, tachycardia, WCT 19.5, likely RLL pneumonia on CXR, source of infection pneumonia. Initially received aggressive IV hydration. Now has good urine output. No recurrence of fever after admission. Severe leukocytosis persisted for several days, now improving. Urinalysis unremarkable. No signs of infection other than pulmonary source. - encourage by mouth fluids - Continue IV antibiotics Doxycycline 100 BID, Ceftrixone 1 g BID for pneumonia 5 days - Repeat CBC in AM #. Pneumonia, Acute.Evidence of RLL pneumonia on CXR, likely CAP pneumonia. Viral PCR negative. Urine pneumonia AG negative. Blood cultures negative. - Complete day 5 antibiotics in a.m. on 09/01 - Encourage cough syrup and ambulation #. Hypertensive urgency, acute. Patient has developed systolic blood pressures greater than 200 mmHg on day 2 of hospitalization. Likely related to fluid resuscitation and stress of illness. Her home antihypertensives (losartan 50, carvedilol 3.125 twice a day, Lasix 20) were held on admission due to concerns about hemodynamic instability and sepsis. - Increase carvedilol to 6.25 mg twice a day - Continue losartan - Change lasix to Dyazide 25 (HCTZ/triamterene) at time of discharge - IV hydralazine as needed while inpatient #. Chest pain. EKG reviewed with no significant findings at time of symptoms. Suspect coughing related esophageal or musculoskeletal discomfort - Cough syrup. #. Type II diabetes mellitus. Hemoglobin A1c is 71.1% on form and 500 mg twice a day Poor glucose control over the first day of hospitalization. She has been hypoglycemic even with low-dose insulin in setting of poor by mouth intake. - Discontinue 4 times a day capillary blood glucose - Resume metformin Resolving, stable or Chronic conditions #. History of diastolic congestive heart failure. LVEF 60% in 08/16. Mild aortic stenosis. - Continue home medications #. 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 hypothyroidism - levothyroxine 75 micrograms per day #. carotid artery disease with stenosis, presumed stable - Continue to monitor #. prolonged QT with syncope - Avoid QT prolonging medications #. arthritis - Continue tylenol for pain CODE STATUS: FULL CODE DVT prophylaxis: SQ heparin Disposition: Anticipated discharge home on 4/1 VTE Prophylaxis: Sub-Q Heparin (Unfractionated) VTE Mechanical Devices: Intermittant Pneumatic CD Resuscitation Status: CPR: Attempt Resuscitation Time spent 35 minutes Yusef Everett MD Aug 31, 2016 14:38
[2016-08-31] MEDS ORDERED: CARV6.252 PO (14:42)
[2016-08-31] MEDS ORDERED: [UNRECOGNIZED DRUG - CODE] (14:42)
[2016-08-31] MEDS ORDERED: GUAI237L83 PO (14:42)
--- NOTE | 2016-08-31 18:02 | NUR ---
Cough/Blood sugars Pt continues to have productive cough today, attempted dose of PRN cough syrup which Pt reported as effective, Pt made aware that medication was still available when needed. [employer] service offered with am assessment which Pt/Pt's family refused, tugboat operator service utilized throughout shift for communication when family members not present. Pt's blood sugar 102 this am and NOC RN reported withholding lantus insulin at beginning of her shift, MD made aware, all insulin D/C'd and MD verbalized that he would resume Pt's metformin dose.
[2016-08-31] MEDS ORDERED: 0.9% Sodium Chloride 250 ML ONE (22:05)
[2016-09-01 00:53] VITALS: BP 128/64; PULSE 69; RESP 20; O2SAT 97
[2016-09-01] MEDS: Heparin 5,000 Unit/mL Inj SUBQ SCH ×2 (01:04→07:53)
--- NOTE | 2016-09-01 02:57 | NUR ---
HTN/Blood Sugar Pt hypertensive w/ SBP 180s at start of shift, pt given HS BP meds and BP WNL when reassessed. Blood sugar 166 at HS. Tele SR 70s w/out c/o pain. [employer] Room Service Supervisor services used w/ initial assessment and to explain plan of care for the night. Daughter at bedside all shift.
[2016-09-01 04:55] VITALS: PULSE 77
[2016-09-01 05:37] VITALS: BP 118/76; PULSE 67; RESP 16; O2SAT 97
[2016-09-01] MEDS: cefTRIAXone Inj 1,000 MG in Dextrose 5% Minibag Plus 50 ML IV SCH (06:13)
[2016-09-01 07:49] VITALS: BP 176/80; PULSE 66; RESP 16; O2SAT 98
[2016-09-01 08:30] VITALS: PULSE 66; RESP 17; O2SAT 96
[2016-09-01] MEDS: Doxycycline Inj 100 MG in Dextrose 5% Minibag Plus 100 ML IV SCH (08:50)
[2016-09-01 09:10] VITALS: PULSE 80
--- NOTE | 2016-09-01 12:29 | PCM.DIMED ---
Discharge Instructions Date of Service Sep 01, 2016 Dates of Hospitalization Aug 27, 2016 at 21:10 Discharge Diagnosis Discharge Diagnosis #. Sepsis, resolved #. Pneumonia, community acquired #. Hypertensive urgency, resolved. #. Chest pain. resolved. #. Type II diabetes mellitus. #. Chronic diastolic congestive heart failure. #. chronic normocytic anemia #. hypothyroidism - #. carotid artery disease #. prolonged QT with syncope #. Osteoarthritis Activity Limited until seen by PCP Patient Instructions Follow-up Provider: Bessei Valdivia DO Follow-up with PCP in: 2 weeks Alfa Acuna MD Sep 01, 2016 12:29
[2016-09-01] MEDS ORDERED: DOXY100T2 PO (12:30)
--- NOTE | 2016-09-01 14:33 | NUR ---
Discharge Pt discharged to home with family today at ~1330. Discharge discussed with son and Pt using breakdown mill operator service. Pt given discharge educational materials in German on comm. acquired pneumonia and new prescriptions. Pt's IV access D/C'd and intact. Pt instructed to f/u with Dr. Valdivia, phone number supplied. Pt's IV access D/C'd and intact. Pt and son verbalized understanding of all discharge instructions. All belongings accompanied Pt at time of discharge.
--- NOTE | 2016-09-01 14:54 | PCM.DC.MED ---
Discharge Summary Date of Service Sep 01, 2016 Dates of Hospitalization Date of Hospital Admission Aug 27, 2016 at 21:10 Date of Discharge: Sep 01, 2016 Providers: Admitting Physician: Kong Sosa MD Primary Care Physician: Bessie Valdivia DO Attending Physician: Kong Sosa MD Diagnosis at Time of Discharge Diagnosis at Time of Discharge #. Sepsis, resolved #. Pneumonia, community acquired #. Hypertensive urgency, resolved. #. Chest pain. resolved. #. Type II diabetes mellitus. #. Chronic diastolic congestive heart failure. #. chronic normocytic anemia #. hypothyroidism - #. carotid artery disease #. prolonged QT with syncope #. Osteoarthritis Consultations None Procedures XRay, CTs & MRIs Chest Xray IMPRESSION: Chronic interstitial changes. Dictated by: Angelina Olea M.D. on 08/27/2016 at 18:34 Approved by: Angleina Olea M.D. on 08/27/2016 at 18:35 ECG 12 Lead ECG Interpretation: Rate is 109. Sinus tachycardia. LVH with lateral ST depression. No STEMI. New compared to one year ago. Time: 19:04 Interpreted by: ED physician Cardiac Echo Impression None Invasive Procedures None Brief History Patient is a 81 year old female with a history of diabetes, hypothyroidism, HTN , valvular heart disease, and CHF, chronic back pain, chadian speaking only. She presented to the ED with family complaining of weakness, productive cough with a little amount of sputum, and fever onset 2 days ago. Associated with painful cough, runny nose, myalgias. Daughter reported that today the weakness is so severe that the patient is unable to walk and has difficulty even sitting up, but the patient can normally stand on her own. Patient has taken tylenol for pain and fever which helped minimally. Additionally, patient stated that she has a wound on her right ankle and chronic back pain. Patient is followed by the wound clinic and was seen four days ago. Patient seen by PCP two days ago for wound check and upper respiratory symptoms advised patient to go to ED should symptoms not improve. Patient described her weakness as all over, previously able to ambulate with minimal assistance. Patient denies syncope, dysuria, constipation, diarrhea, nausea, vomiting, blood in cough, blood in stool. Hospital Course Patient is a 81 year old female with a history of diabetes, hypothyroidism, HTN , valvular heart disease, and CHF, chronic back pain, chadian speaking only. Admitted for sepsis secondary to RLL pneumonia, dehydration. Acute and/or high-risk conditions: #. Sepsis, acute. On admission Patient meets criteria, T 39.5, tachycardia, WCT 19.5, likely RLL pneumonia on CXR, source of infection pneumonia. Initially received aggressive IV hydration. Now has good urine output. No recurrence of fever after admission. Severe leukocytosis persisted for several days, now improving. Urinalysis unremarkable. No signs of infection other than pulmonary source. - encourage by mouth fluids - Continue IV antibiotics Doxycycline 100 BID, Ceftrixone 1 g BID for pneumonia 5 days - Repeat CBC in AM #. Pneumonia, Acute.Evidence of RLL pneumonia on CXR, likely CAP pneumonia. Viral PCR negative. Urine pneumonia AG negative. Blood cultures negative. - Complete day 5 antibiotics in a.m. on 09/01 - Encourage cough syrup and ambulation #. Hypertensive urgency, acute. Patient has developed systolic blood pressures greater than 200 mmHg on day 2 of hospitalization. Likely related to fluid resuscitation and stress of illness. Her home antihypertensives (losartan 50, carvedilol 3.125 twice a day, Lasix 20) were held on admission due to concerns about hemodynamic instability and sepsis. - Increase carvedilol to 6.25 mg twice a day - Continue losartan - Change lasix to Dyazide 25 (HCTZ/triamterene) at time of discharge - IV hydralazine as needed while inpatient #. Chest pain. EKG reviewed with no significant findings at time of symptoms. Suspect coughing related esophageal or musculoskeletal discomfort - Cough syrup. #. Type II diabetes mellitus. Hemoglobin A1c is 71.1% on form and 500 mg twice a day Poor glucose control over the first day of hospitalization. She has been hypoglycemic even with low-dose insulin in setting of poor by mouth intake. - Discontinue 4 times a day capillary blood glucose - Resume metformin Resolving, stable or Chronic conditions #. History of diastolic congestive heart failure. LVEF 60% in 08/16. Mild aortic stenosis. - Continue home medications #. 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 hypothyroidism - levothyroxine 75 micrograms per day #. carotid artery disease with stenosis, presumed stable - Continue to monitor #. prolonged QT with syncope - Avoid QT prolonging medications #. arthritis - Continue tylenol for pain CODE STATUS: FULL CODE DVT prophylaxis: SQ heparin Disposition: Anticipated discharge home on 09/01 Hospital course: She was admitted for sepsis and met criteria, her focus of infection was pneumonia. She was treated and fluid resuscitated. She slowly improved. She had reasonable diabetic control. Her BP was initially poorly controlled and this improved with up titration of her medications. She was improved and stable for discharge on the day of discharge. Met with her family as well. Exam Vital Signs (Last) Date Time Temp Pulse Resp B/P Pulse Ox O2 Delivery O2 Flow Rate FiO2 09/01/16 09:10 80 09/01/16 08:30 17 96 Room Air 09/01/16 07:49 37.1 176/80 08/29/16 06:14 2.00 Exam Patient seen and examined on the day of discharge. Test 08/27/16 18:03 08/27/16 18:15 08/27/16 18:34 08/27/16 23:10 Hemoglobin A1c 7.1% (4.8-5.6) Pro-B-Type Natriuretic Peptide 1816pg/mL (0-738) Urine Legionella pneumophilia Ag Negative (Negative) Urine Color Yellow (YELLOW) Urine Appearance Clear (CLEAR,HAZY) Urine pH 6.0 (5.0-8.0) Urine Specific [place] 1.020 (1.003-1.035) Urine Protein Negativemg/dL (NEG,TRACE) Urine Glucose (UA) Negativemg/dL (NEGATIVE) Urine Ketones 15mg/dL (NEGATIVE) Urine Occult Blood Trace (NEGATIVE) Urine Nitrite Negative (NEGATIVE) Urine Bilirubin Negative (NEGATIVE) Urine Urobilinogen Normalmg/dL (NORMAL) Urine Leukocyte Esterase Negative (NEGATIVE) Urine RBC 0-2/hpf (0-2) Urine WBC 0-5/hpf (0-5) Urine Epithelial Cells Occasional/hpf (NONE-MOD) Urine Crystals None seen (NONE SEEN) Urine Bacteria None/hpf (NONE-FEW) Urine Hyaline Casts None/lpf (NONE) Urine Granular Casts None seen (NONE SEEN) Urine Waxy Casts None seen (NONE SEEN) Urine Red Blood Cell Casts None seen (NONE SEEN) Urine White Blood Cell Casts None seen (NONE SEEN) Urine Mucus None seen (None Seen) Urine Trichomonas None seen (NONE SEEN) Urine Yeast None (NONE SEEN) Urinalysis Comment None Urine Culture Reflexed Not indicated Lactic Acid Level 0.6mmol/L (0.4-2.0) Test 08/28/16 06:00 08/29/16 04:30 08/30/16 04:42 Neutrophils (%) (Auto) 93.8% (40-74) Lymphocytes (%) (Auto) 5.2% (14-46) Monocytes (%) (Auto) 0.8% (4-12) Eosinophils (%) (Auto) 0% (0-5) Basophils (%) (Auto) 0.1% (0-3) Total Bilirubin 0.5mg/dL (0.0-1.2) Aspartate Amino Transf (AST/SGOT) 12U/L (0-50) Alanine Aminotransferase (ALT/SGPT) 7U/L (0-32) Alkaline Phosphatase 82U/L (25-165) Total Protein 7.4g/dL (6.4-8.4) Albumin 3.3g/dL (3.4-5.0) Procalcitonin 0.28ng/mL (0.00-0.08) Troponin T 0.010ug/L (0.0-0.011) White Blood Count 16.8th/mm3 (3.8-10.1) Red Blood Count 3.64mil/mm3 (3.90-5.20) Hemoglobin 10.2g/dL (12.0-15.6) Hematocrit 30.9% (35.0-46.0) Mean Corpuscular Volume 84.9fL (81-100) Mean Corpuscular Hemoglobin 28.0pg (27.0-35.0) Mean Corpuscular Hemoglobin Concent 33.0% (32.0-37.0) Red Cell Distribution Width 14.0% (12.3-15.4) Platelet Count 236bil/L (150-400) Sodium Level 137mEq/L (134-144) Potassium Level 3.6mEq/L (3.5-5.2) Chloride Level 103mEq/L (97-108) Carbon Dioxide Level 20mmol/L (18-29) Blood Urea Nitrogen 14mg/dL (8-27) Creatinine 0.68mg/dL (0.57-1.00) Estimat Glomerular Filtration Rate 119mL/min (>59) Glucose Level 79mg/dL (60-99) Calcium Level 9.1mg/dL (8.5-10.1) Discharge Medications Discharge Medications ([Dyazide-25]) TABLET DAILY Prescribed by: VERÓNICA HERNÁNDEZ MD Carvedilol (Carvedilol) 6.25 Mg Tablet 6.25 MG PO BID Prescribed by: VERÓNICA HERNÁNDEZ MD Dorzolamide HCl/Timolol Maleat (Dorzolamide-Timolol Eye Drops) 10 Ml Drops 1 GTT BOTH_EYES BID (Reported) Doxycycline Hyclate (Doxycycline Hyclate) 100 Mg Tablet 100 MG PO BID Prescribed by: ALFA ACUNA MD Guaifenesin/Dextromethorphan (Robitussin Cough-Chest Dm Liq) 100 Mg-5 Mg/5 Ml Liquid 5 ML PO q4hr Prescribed by: VERÓNICA HERNÁNDEZ MD Latanoprost (Latanoprost) 2.5 Ml Drops 1 GTT BOTH_EYES HS (Reported) Levothyroxine (Synthroid) 75 Mcg Tablet 75 MCG PO DAILYAC Prescribed by: KYRA SWEET MD Losartan Potassium (Losartan Potassium) 50 Mg Tablet 50 MG PO DAILY (Reported) Metformin (Metformin) 500 Mg Tablet 500 MG PO BIDWM (Reported) Pravastatin (Pravastatin) 20 Mg Tablet 20 MG PO HS (Reported) As needed Aspirin (Aspirin) 81 Mg Tablet 81 MG PO DAILY PRN PRN PAIN/FEVER (Reported) Followup Plan Disposition: Home with family Discharge Activity: Limited until seen by PCP Follow-up Provider: Bessie Valdivia DO Follow-up with PCP in: 2 weeks Time spent 45 min Alfa Acuna MD Sep 01, 2016 14:54
== END 2016-09-01 13:30 | disposition home or self-care (01) | DRG 871 ==
LOC: SED 17:42 → PCC 21:10
PROVIDERS: ADMIT Hospitalist; ATTEND Hospitalist
DX: A41.9 Sepsis, unspecified organism (principal); J18.9 Pneumonia, unspecified organism; E87.1 Hypo-osmolality and hyponatremia; I50.32 Chronic diastolic (congestive) heart failure; L97.319 Non-pressure chronic ulcer of right ankle with unspecified severity; E86.0 Dehydration; I16.0 Hypertensive urgency; E11.9 Type 2 diabetes mellitus without complications; E03.9 Hypothyroidism, unspecified; I25.10 Atherosclerotic heart disease of native coronary artery without angina pectoris; G89.29 Other chronic pain; D63.8 Anemia in other chronic diseases classified elsewhere; M19.90 Unspecified osteoarthritis, unspecified site; Z79.84 Long term (current) use of oral hypoglycemic drugs; Z79.82 Long term (current) use of aspirin; Z88.0 Allergy status to penicillin

== ENCOUNTER 2016-09-20 13:49 | Emergency (ER) | payer MEDICARE, MEDICAID ==
[~2016-09-20] VITALS: Ht 144.8 cm; Wt 40.9 kg
[~2016-09-20 13:49] MED LIST changes: +ASPI-973 PO; -ASPI81TA3 PO; -CARV3.12 PO; +CARV6.252 PO; +DOXY100T2 PO; +GUAI237L83 PO; -LATA2.5D6; +LATA2.5D6 BOTH_EYES; +METF500T4 PO; +[UNRECOGNIZED DRUG - CODE]
[2016-09-20 13:57] VITALS: BP 242/115; PULSE 85; RESP 16; O2SAT 99
[2016-09-20 14:29] VITALS: BP 221/85; PULSE 82; RESP 12; O2SAT 100
[2016-09-20 15:00] VITALS: BP 226/97; PULSE 82; RESP 12; O2SAT 99
--- NOTE | 2016-09-20 15:04 | ED.REPORT ---
HPI-Rash / Abscess Date of Service Sep 20, 2016 ED Provider: Lew Sylvester MD Patient is an 81 year old female who was hospitalized on 08/27/16 for sepsis, pneumonia, and hypertensive urgency with a history of CHF and hypertension. She presents to the ED complaining of a rash on her hands and lips onset two days ago. Associated symptoms include itchiness, swelling of her hands and lips, headache, fatigue, chills, and insomnia. She denies a rash on her feet, back or chest, or difficulty breathing. Patient states that she stopped taking her medication, Losartan, two days ago, because she thought it might be an allergic reaction. She reports that she has never had this kind of rash before. The patient called her primary care physician who recommended using Benadryl cream but it did not provide any relief. Patient denies taking any other medication for the rash or itchiness. She is not currently taking any antibiotics but she finished a course of antibiotics two weeks ago. Nursing Notes Stated Complaint: ALLERGY REACTION Chief Complaint: Skin Rash/Abscess Nursing Notes Reviewed: Yes (Isagen, [employer] not reconciled) Allergies: Coded Allergies: hydrochlorothiazide (Verified Allergy, Severe, LUPUS-LIKE SKIN ERUPTION, ) triamterene (Verified Allergy, Severe, LUPUS-LIKE SKIN ERUPTION, 09/20/16) Penicillins (Verified Allergy, Intermediate, Hives, 09/20/16) ciprofloxacin (Verified Allergy, Unknown, MD REQUESTED PT TO D/C - UNKNOWN WHY, 09/20/16) Scheduled ([Dyazide-25]) TABLET DAILY Carvedilol (Carvedilol) 6.25 Mg Tablet 6.25 MG PO BID Dorzolamide HCl/Timolol Maleat (Dorzolamide-Timolol Eye Drops) 10 Ml Drops 1 GTT BOTH_EYES BID Doxycycline Hyclate (Doxycycline Hyclate) 100 Mg Tablet 100 MG PO BID Guaifenesin/Dextromethorphan (Robitussin Cough-Chest Dm Liq) 100 Mg-5 Mg/5 Ml Liquid 5 ML PO q4hr Labetalol (Labetalol) 100 Mg Tablet 100 MG PO BID In [place] please Latanoprost (Latanoprost) 2.5 Ml Drops 1 GTT BOTH_EYES HS Levothyroxine (Synthroid) 75 Mcg Tablet 75 MCG PO DAILYAC Losartan Potassium (Losartan Potassium) 50 Mg Tablet 50 MG PO DAILY Metformin (Metformin) 500 Mg Tablet 500 MG PO BIDWM Pravastatin (Pravastatin) 20 Mg Tablet 20 MG PO HS Prednisone (PredniSONE) 20 Mg Tablet 40 MG PO DAILY In [place] please Scheduled PRN Aspirin (Aspirin) 81 Mg Tablet 81 MG PO DAILY PRN PRN PAIN/FEVER General Time Seen by MD: 15:03 Chief Complaint Rash Hx Obtained From: Patient, Daughter Arrived By: Walk-in Onset Occurred: 2 days ago Symptom Duration: Since onset Location: : Hand: Other (lips) Quality: Itching Recent Healthcare: Recent doctor visit, Recent hospitalization Similar Sx Previous: No Past Medical History Past Medical History Notes: Admitted August 27 of 09/01/2016 for sepsis, pneumonia, hypertensive urgency Past Medical History congestive heart failure, chronic 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 hypothyroidism carotid artery disease with stenosis prolonged QT with syncope h/o hyponatremia hx of pericardial effusion arthritis valvular heart disease Denies history of [place] Reports: Diabetes mellitus, Hyperlipidemia, Hypertension Reports: Depression Past Surgical History None Smoking History Never Smoker Social History currently living with daughter Alcohol Use: Denies alcohol use Drug Use: Denies drug use Other Social History: Good social support, , Lives with children Ambulatory Status Wheelchair Review of Systems Constitutional: Reports: Chills, Fatigue Respiratory: Denies: Non-productive cough, Shortness of breath Skin: Reports Itching, Reports Rash (on hands and lips), Reports Swelling (of hands and lips) Complete sys rev & neg: except as marked. Neurologic: Reports: Headache Psychiatric: Reports: Insomnia Physical Exam Initial Vital Signs Vital Signs (First) Date Time Temp Pulse Resp B/P Pulse Ox O2 Delivery O2 Flow Rate FiO2 09/20/16 13:57 36.7 85 16 242/115 99 Room Air Initial VS: Reviewed, Vital signs abnormal General/Constitutional: Awake, Alert, No acute distress, Well appearing Appearance / Presentation: Positive: Cachectic, Frail Skin: Atraumatic, Warm, Dry Color / Condition: Positive: Rash present Rash / Lesion Location: Positive: Hand L, Hand R rash on hands with swelling of digits with ecchymosis and erythema Head / Eyes: Atraumatic, Normocephalic, PERRL, EOMI ENT: Atraumatic, Airway patent, Mucous membranes moist Respiratory / Chest: Atraumatic, Breath sounds NL, Breath sounds = bilat, No respiratory distress Cardiovascular: Heart rate NL, Regular rhythm, Heart sounds NL, No murmurs Upper Extremity / MS: Atraumatic, Full range of motion Lower Extremity / Pelvis / MS: Atraumatic, Full range of motion Neurologic: Oriented X3, Speech NL, No motor deficits, No sensory deficits Neck: Atraumatic, Supple Abdomen: Atraumatic, Soft, Non-tender Back: Atraumatic, Full range of motion Psychiatric: Affect NL, Mood NL Interpretation & Diagnostics Lab Results Interpretation Result Diagram: 09/20/16 1510 09/20/16 1510 Test 09/20/16 15:10 09/20/16 15:46 09/20/16 17:15 White Blood Count 9.1th/mm3 (3.8-10.1) Red Blood Count 4.02mil/mm3 (3.90-5.20) Hemoglobin 11.5g/dL (12.0-15.6) Hematocrit 34.5% (35.0-46.0) Mean Corpuscular Volume 85.8fL (81-100) Mean Corpuscular Hemoglobin 28.6pg (27.0-35.0) Mean Corpuscular Hemoglobin Concent 33.3% (32.0-37.0) Red Cell Distribution Width 14.0% (12.3-15.4) Platelet Count 181bil/L (150-400) Neutrophils (%) (Auto) 53.9% (40-74) Lymphocytes (%) (Auto) 19.8% (14-46) Monocytes (%) (Auto) 8.1% (4-12) Eosinophils (%) (Auto) 17.7% (0-5) Basophils (%) (Auto) 0.4% (0-3) Hold Purple Top Tube Received (Received) Hold Blue Top Tube Received (Received) Sodium Level 137mEq/L (134-144) Potassium Level 4.4mEq/L (3.5-5.2) Chloride Level 102mEq/L (97-108) Carbon Dioxide Level 20mmol/L (18-29) Blood Urea Nitrogen 30mg/dL (8-27) Creatinine 1.27mg/dL (0.57-1.00) Estimat Glomerular Filtration Rate 58mL/min (>59) Glucose Level 95mg/dL (60-99) Calcium Level 9.4mg/dL (8.5-10.1) Total Bilirubin 0.6mg/dL (0.0-1.2) Aspartate Amino Transf (AST/SGOT) 17U/L (0-50) Alanine Aminotransferase (ALT/SGPT) 13U/L (0-32) Alkaline Phosphatase 80U/L (25-165) Total Protein 8.3g/dL (6.4-8.4) Albumin 4.0g/dL (3.4-5.0) Hold [place] Top Tube Received (Received) Hold [place] Top Tube Received (Received) Urine Color Straw (YELLOW) Urine Appearance Clear (CLEAR,HAZY) Urine pH 5.5 (5.0-8.0) Urine Specific [place] <1.005 (1.003-1.035) Urine Protein Negativemg/dL (NEG,TRACE) Urine Glucose (UA) Negativemg/dL (NEGATIVE) Urine Ketones Negativemg/dL (NEGATIVE) Urine Occult Blood Negative (NEGATIVE) Urine Nitrite Negative (NEGATIVE) Urine Bilirubin Negative (NEGATIVE) Urine Urobilinogen Normalmg/dL (NORMAL) Urine Leukocyte Esterase Trace (NEGATIVE) Urine RBC 0-2/hpf (0-2) Urine WBC 0-5/hpf (0-5) Urine Epithelial Cells Few/hpf (NONE-MOD) Urine Crystals None seen (NONE SEEN) Urine Bacteria Few/hpf (NONE-FEW) Urine Hyaline Casts Rare/lpf (NONE) Urine Granular Casts None seen (NONE SEEN) Urine Waxy Casts None seen (NONE SEEN) Urine Red Blood Cell Casts None seen (NONE SEEN) Urine White Blood Cell Casts None seen (NONE SEEN) Urine Mucus None seen (None Seen) Urine Trichomonas None seen (NONE SEEN) Urine Yeast None (NONE SEEN) Urinalysis Comment None Urine Culture Reflexed Indicated Lab Results Interpretation: CBC normal CMP mild new Renal insufficiency c/w labs from last month Additional labs sent based on up-to-date's recommendations for the testing recommendations for suspected drug induced lupus following hydralazine use (I contacted installations inspector PCP to facilitate follow up) ECG Interpretation ECG Interpretation: left ventricular hypertrophy with strain unchanged from 08/20/16 Time: 15:24 Interpreted by: ED physician Normal ECG Interpretation: Normal rate (81), Normal sinus rhythm Re-Eval/Medical Decision Med Decision/Clinical Course This is a pleasant 81-year-old female presents with a chief complaint that she is having a rash and itching and swelling and fatigue that she attributes his an allergic reaction to medication. The patient thinks that it is from losartan which she claims was stopped started in the hospital recent admission- however I review the records indicates that the patient's x-ray been on losartan for a long time, but that the patient was given hydralazine in the hospital, and discharged on Dyazide. Usually the patient did not think that she was on Dyazide, but it is both referenced in the discharge instructions, the follow-up visit by the PCP, and we contacted the pharmacy confirmed she picked up the prescription for-which point the family does remember and think that she is on this medicine. He has developed swelling in the joints of the hands particularly, she has developed a rash of the hands, she developed profound fatigue, rashes not urticarial. The patient did stop her losartan, and arrives hypertensive-but denies current headache, chest pain, shortness breath or being symptomatic from it. Her rash, and her symptoms following initiation of hydralazine in the hospital and outpatient HCTZ -are suspicious for a drug-induced lupus. The rash is not urticarial and does not appear typical of an IGE mediated process I referenced up-to-date and sent the recommended labs. I noticed her initial dose of steroids, which helped with the itching the patient feels better. Chest reviewed dose of Benadryl. Most important part is were stopping the Dyazide, and I would avoid hydralazine going forwards in this patient as well. Consultation pharmacy of their input on her blood pressure management, given a heart rates in the 80s plan this point is to start labetalol 100 mg twice a day. The patient may resume her losartan. The patient is being discharged on a five-day course of prednisone 40 mg daily, some triamcinolone ointment as recommended by up-to-date, and some when necessary Benadryl-and will be starting on new labetalol, and and restarting the losartan while Continuing the suspected agent which is the hydrochlorothiazide that she is currently taking. Close follow-up the PCP is recommended. All of these instructions were carefully reviewed with the patient and family members, and were hopefully written out by the [employer] bpm architect. Source of Hx: Old records Re-Evaluation/Progress : Time of Eval: 18:27 Patient Status: Condition improved Re-Evaluation/Progress Note: Rechecked patient. Discussed diagnosis of an allergic reaction to the medication and plan for discharge. The patient understands and agrees to the plan for treatment and discharge. All questions were addressed. Differential Diagnosis: Positive: Drug reaction, Negative: AIDS/HIV, Abscess, Allergic reaction, Anorectal abscess, Gangrene, Hand, foot, mouth disease, Osteomyelitis, Pityriasis rosea, [place] spotted fever, Shingles, herpes zoster, Urticaria Counseled Regarding: Diagnosis, Lab results, Need for follow-up, When/why to return to ED Discharge & Departure Impression: Primary Impression: Drug-induced lupus erythematosus Additional Impressions: Renal insufficiency High blood pressure Hypertension type: essential hypertension Qualified Code: I10 - Essential ( primary) hypertension Disposition: Home Discharge Condition All VS Reviewed: Yes Condition: Stable Additional Instructions: 1. I do think that your symptoms of body aches, joint pains, rash, fatigue or indeed from an adverse reaction to medication. However, I believe this is very specific type of reaction in response to the medicine hydralazine. Stop taking hydralazine (Dyazide is the name of the medication you are taking with the hydralazine in it). 2. It does not appear the losartan-you have been on this medication per records for several years. Please restart. 3. Several blood tests have not resulted today will take several days to a week for result. Please call for appointment with Dr. Valdivia. 4. Take Prednisone 40 mg a day for the next 5 days. 5. Apply triamcinolone ointment to the rash the hands as needed to help with itching. 6. You can also take Benadryl-not the Benadryl cream-up to every 4 hours to help with itching-but it does cause some drowsiness. You can take 1-2 tabs of 25mg each. 7. For your blood pressure, instead of the Dyazide, take labetolol 100mg twice a day. 8. NOTE: It can take ~2-6 weeks for symptoms to completely resolve. Referrals: Bsesie Valdivia DO (PCP) Scribe Attestation Portions of this note were transcribed by Jazlyn Fields and Eryn Nice. I, Dr. Nicole personally performed the history, physical exam and medical decision- making; I reviewed and confirmed the accuracy of the information in the transcribed note. Signed by: Jazlyn Fields and Rayray Epps, 09/20/16 and 1829. copies to: Bessie Valdivia Matthew F MD Sep 20, 2016 15:04 Delmis Fields Sep 20, 2016 15:06 Eryn Nice Sep 20, 2016 17:05
[2016-09-20] MEDS ORDERED: Dexamethasone Inj 10 MG in 0.9% Sodium Chloride-Pha MIX 50 ML IV ONE (15:35)
[2016-09-20 15:44] LABS: BASOPHILS % (AUTO) 0.4 % (0-3); EOSINOPHILS % (AUTO) 17.7 % (0-5); MONOCYTES % (AUTO) 8.1 % (4-12); Mean Corpuscular Hemoglobin 28.6 pg (27.0-35.0); Mean Corpuscular Volume 85.8 fL (81-100); NEUTROPHILS % (AUTO) 53.9 % (40-74); Platelet Count 181 bil/L (150-400)
[2016-09-20] MEDS ORDERED: MeTOProlol 1 mg/mL 5 mL Inj IVPUSH ONE (16:00)
[2016-09-20 17:42] LABS: APPEARANCE,URINE CLEAR (CLEAR,HAZY); COLOR,URINE STRAW (YELLOW)
[2016-09-20 17:43] LABS: OCCULT BLOOD,URINE NEGATIVE (NEGATIVE); PH,URINE 5.5 (5.0-8.0); UROBILINOGEN,URINE NORMAL (NORMAL)
[2016-09-20 17:45] VITALS: BP 207/85; PULSE 74; RESP 12; O2SAT 99
[2016-09-20] MEDS ORDERED: LABE100T4 PO (17:52)
[2016-09-20] MEDS ORDERED: PRE20 PO (17:52)
[2016-09-20 19:01] VITALS: BP 207/85; PULSE 74; RESP 12; O2SAT 99
[2016-09-24 12:11] LABS: Antiproteinase 3 (PR-3) Abs <3.5 U/mL (0.0-3.5); Perinuclear (P-ANCA) <1:20 titer (Neg:<1:20)
== END 2016-09-20 19:02 | disposition home or self-care (01) ==
LOC: SED 13:49
DX: M32.0 Drug-induced systemic lupus erythematosus (principal); R21 Rash and other nonspecific skin eruption; L29.9 Pruritus, unspecified; M79.89 Other specified soft tissue disorders; K13.0 Diseases of lips; R51 Headache; R53.83 Other fatigue; T46.5X5A Adverse effect of other antihypertensive drugs, initial encounter; Y93.89 Activity, other specified; Y92.89 Other specified places as the place of occurrence of the external cause; Y99.8 Other external cause status; N28.9 Disorder of kidney and ureter, unspecified; B95.1 Streptococcus, group B, as the cause of diseases classified elsewhere; I11.0 Hypertensive heart disease with heart failure; E11.59 Type 2 diabetes mellitus with other circulatory complications; I50.9 Heart failure, unspecified; R68.83 Chills (without fever); E78.5 Hyperlipidemia, unspecified; G47.00 Insomnia, unspecified; E03.9 Hypothyroidism, unspecified; Z79.82 Long term (current) use of aspirin; Z79.84 Long term (current) use of oral hypoglycemic drugs; Z88.0 Allergy status to penicillin; Z88.1 Allergy status to other antibiotic agents; Z88.8 Allergy status to other drugs, medicaments and biological substances
CPT/HCPCS: 36415; 80053; 81000; 83520; 85025; 86038; 86225; 86235; 86255; 87086; 87088; 87147; 93005; 96374; 96375; 99285; J1100; J1200

== ENCOUNTER 2017-01-29 17:18 | Inpatient (IN) | payer MEDICARE, MEDICAID ==
[2017-01-29] VITALS (9 sets, daily range): BP systolic 171–233; BP diastolic 69–99; PULSE 73–91; RESP 14–22; O2SAT 93–98
[~2017-01-29] VITALS: Ht 147.3 cm; Wt 38.4 kg
[~2017-01-29 17:18] MED LIST changes: +LABE100T4 PO; +PRE20 PO
--- NOTE | 2017-01-29 18:07 | ED.REPORT ---
HPI-General Illness Date of Service Jan 29, 2017 ED Provider: Manuel Reyes DO Patient is an 81 year old female with a history of CHF, diabetes and hypertension who presents to the ED complaining of chest tightness onset 8 days ago. She also complains of a right sided frontal headache and pain that goes down into the right side of her throat. Patient denies vomiting, diarrhea, cough , shortness of breath or fever. The [facility] a [facility] check up where it was noted that she had a blood pressure in the 200's systolic and she was referred to the ED. Nursing Notes Stated Complaint: ELEVATED BLOOD PRESSURE Chief Complaint: Chest Pain Nursing Notes Reviewed: Yes Allergies: Coded Allergies: hydrochlorothiazide (Verified Allergy, Severe, LUPUS-LIKE SKIN ERUPTION, ) triamterene (Verified Allergy, Severe, LUPUS-LIKE SKIN ERUPTION, 09/20/16) WHEN GIVEN IN COMBO (HCTZ + TRIAMTERENE) Penicillins (Verified Allergy, Intermediate, Hives, 09/20/16) ciprofloxacin (Verified Allergy, Unknown, MD REQUESTED PT TO D/C - UNKNOWN WHY, 09/20/16) Scheduled ([Dyazide-25]) TABLET DAILY Carvedilol (Carvedilol) 6.25 Mg Tablet 6.25 MG PO BID Dorzolamide HCl/Timolol Maleat (Dorzolamide-Timolol Eye Drops) 10 Ml Drops 1 GTT BOTH_EYES BID Doxycycline Hyclate (Doxycycline Hyclate) 100 Mg Tablet 100 MG PO BID Guaifenesin/Dextromethorphan (Robitussin Cough-Chest Dm Liq) 100 Mg-5 Mg/5 Ml Liquid 5 ML PO q4hr Labetalol (Labetalol) 100 Mg Tablet 100 MG PO BID In [place] please Latanoprost (Latanoprost) 2.5 Ml Drops 1 GTT BOTH_EYES HS Levothyroxine (Synthroid) 75 Mcg Tablet 75 MCG PO DAILYAC Losartan Potassium (Losartan Potassium) 50 Mg Tablet 50 MG PO DAILY Metformin (Metformin) 500 Mg Tablet 500 MG PO BIDWM Pravastatin (Pravastatin) 20 Mg Tablet 20 MG PO HS Prednisone (PredniSONE) 20 Mg Tablet 40 MG PO DAILY In [place] please Scheduled PRN Aspirin (Aspirin) 81 Mg Tablet 81 MG PO DAILY PRN PRN PAIN/FEVER General Time Seen by MD: 18:07 Chief Complaint Chest pain Hx Obtained From: Patient Arrived By: Walk-in Sudden in Onset?: No Onset Occurred: More than a week ago... Symptom Duration: Since onset Location: : Chest Quality: Heaviness, Painful Severity: Current: Moderate Recent Healthcare: Recent doctor visit Similar Sx Previous: No Past Medical History Past Medical History Notes: Admitted August 27 of 09/01/2016 for sepsis, pneumonia, hypertensive urgency Past Medical History congestive heart failure, chronic 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 hypothyroidism carotid artery disease with stenosis prolonged QT with syncope h/o hyponatremia hx of pericardial effusion arthritis valvular heart disease Denies history of [place] Reports: Diabetes mellitus, Hyperlipidemia, Hypertension Reports: Depression Past Surgical History None Smoking History Never Smoker Social History currently living with daughter Alcohol Use: Denies alcohol use Drug Use: Denies drug use Other Social History: Good social support, , Lives with children Ambulatory Status Wheelchair Review of Systems Full Review of Systems Constitutional: Denies: Chills, Fever Ears / Nose / Throat: Reports: Throat pain Respiratory: Denies: Non-productive cough, Shortness of breath Cardiovascular: Reports: Chest pain GI: Denies: Diarrhea, Nausea, Vomiting Skin: Denies Itching, Denies Rash Neurologic: Reports: Headache, Denies: Numbness, Weakness Complete sys rev & neg: except as marked. Physical Exam Vital Signs Vital Signs Date Time Temp Pulse Resp B/P Pulse Ox O2 Delivery O2 Flow Rate FiO2 01/29/17 23:12 74 205/77 01/29/17 22:55 79 201/77 01/29/17 22:46 75 191/73 97 Room Air 01/29/17 20:52 36.7 91 17 191/99 98 Room Air 2 01/29/17 20:19 79 15 198/79 98 01/29/17 19:37 73 171/69 94 Room Air 2 01/29/17 19:24 80 22 202/97 93 Room Air 01/29/17 18:34 85 233/98 93 Room Air 01/29/17 17:36 36.7 73 14 198/82 94 Room Air Initial VS: Reviewed General/Constitutional: Awake, Alert Head / Eyes: Atraumatic, Normocephalic, PERRL, EOMI Neck: Atraumatic, Supple Respiratory / Chest: Atraumatic, Breath sounds NL, Breath sounds = bilat, No respiratory distress Cardiovascular: Heart rate NL, Regular rhythm, Heart sounds NL, No murmurs hypertensive Upper Extremities Upper Extremity / MS: Atraumatic, Full range of motion Skin: Atraumatic, Color NL, No rash, Warm, Dry Neurologic: Oriented X3, Speech NL Psychiatric: Affect NL, Mood NL Interpretation & Diagnostics Lab Results Interpretation Result Diagram: 01/29/17 1800 01/29/17 1800 Test 01/29/17 18:00 01/29/17 21:00 White Blood Count 7.2th/mm3 (3.8-10.1) Red Blood Count 4.08mil/mm3 (3.90-5.20) Hemoglobin 11.5g/dL (12.0-15.6) Hematocrit 34.7% (35.0-46.0) Mean Corpuscular Volume 85.0fL (81-100) Mean Corpuscular Hemoglobin 28.2pg (27.0-35.0) Mean Corpuscular Hemoglobin Concent 33.1% (32.0-37.0) Red Cell Distribution Width 13.6% (12.3-15.4) Platelet Count 187bil/L (150-400) Neutrophils (%) (Auto) 41.9% (40-74) Lymphocytes (%) (Auto) 37.9% (14-46) Monocytes (%) (Auto) 12.6% (4-12) Eosinophils (%) (Auto) 5.8% (0-5) Basophils (%) (Auto) 1.8% (0-3) D-Dimer 1.02mg/L FEU (<0.50) Sodium Level 136mEq/L (134-144) Potassium Level 4.2mEq/L (3.5-5.2) Chloride Level 100mEq/L (97-108) Carbon Dioxide Level 22mmol/L (18-29) Blood Urea Nitrogen 16mg/dL (8-27) Creatinine 0.73mg/dL (0.57-1.00) Estimat Glomerular Filtration Rate 109mL/min (>59) Glucose Level 100mg/dL (60-99) Calcium Level 9.1mg/dL (8.5-10.1) Magnesium Level 2.0mg/dL (1.6-2.6) Total Bilirubin 0.7mg/dL (0.0-1.2) Aspartate Amino Transf (AST/SGOT) 23U/L (0-50) Alanine Aminotransferase (ALT/SGPT) 11U/L (0-32) Alkaline Phosphatase 86U/L (25-165) Troponin T < 0.010ug/L (0.0-0.011) Pro-B-Type Natriuretic Peptide 2503pg/mL (0-738) Total Protein 8.1g/dL (6.4-8.4) Albumin 4.1g/dL (3.4-5.0) Urine Color Straw (YELLOW) Urine Appearance Hazy (CLEAR,HAZY) Urine pH 7.0 (5.0-8.0) Urine Specific Cranks 1.009 (1.003-1.035) Urine Protein Negativemg/dL (NEG,TRACE) Urine Glucose (UA) Negativemg/dL (NEGATIVE) Urine Ketones Negativemg/dL (NEGATIVE) Urine Occult Blood Negative (NEGATIVE) Urine Nitrite Negative (NEGATIVE) Urine Bilirubin Negative (NEGATIVE) Urine Urobilinogen Normalmg/dL (NORMAL) Urine Leukocyte Esterase Negative (NEGATIVE) Urine RBC 0-2/hpf (0-2) Urine WBC 0-5/hpf (0-5) Urine Epithelial Cells Occasional/hpf (NONE-MOD) Urine Crystals Amorphous phosphates Urine Bacteria Few/hpf (NONE-FEW) Urine Hyaline Casts None/lpf (NONE) Urine Granular Casts None seen (NONE SEEN) Urine Waxy Casts None seen (NONE SEEN) Urine Red Blood Cell Casts None seen (NONE SEEN) Urine White Blood Cell Casts None seen (NONE SEEN) Urine Mucus Present (None Seen) Urine Trichomonas None seen (NONE SEEN) Urine Yeast None (NONE SEEN) Urinalysis Comment None Urine Culture Reflexed Not indicated Hold Urine Received (Received) ECG Interpretation ECG Interpretation: subtle ST depression in V5, V6 with LVH Time: 18:39 Interpreted by: ED physician Normal ECG Interpretation: Normal rate (86) X-Ray Chest Interpretation Chest Xray Interpretation: IMPRESSION: Probable mild interstitial edema more likely cardiac and inflammatory. Dictated by: Keyshawn West M.D. on 01/29/2017 at 18:45 Approved by: Keyshawn West M.D. 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 No acute intracranial abnormality. Interpretation / Wet Read by: Interpret - Radiologist CT Chest Interpretation IMPRESSION: Moderate pericardial effusion. Increased pulmonary vasculature with lymphatic prominence at the lung bases and patchy areas of airspace disease suggesting congestive failure rather than patchy infiltrates and pneumonia. Dictated by: Keyshawn West M.D. on 01/29/2017 at 21:02 Approved by: Keyshawn West M.D. on 01/29/2017 at 21:21 Study type: CT pulm angiogram Interpretation / Wet Read by: Interpret - Radiologist Re-Eval/Medical Decision Med Decision/Clinical Course Elevated D-dimer, CT angio ordered to rule out aortic dissection. 81-year-old female hypertension presents with hypertensive crisis and associated congestive heart failure. She has rather recalcitrant blood pressure. Nitroglycerin as an IV drip as well as aliquots of labetalol initially brought her blood pressure down. This resolved the chest pain. Dissection and pulmonary emboli were ruled out. She does have a moderate-sized pericardial effusion. She has no abnormal EKG. Elevated beta nitric peptide and evidence of heart failure on her CT. She will be admitted to the intensive care unit. Time of Eval: 22:25 Re-Evaluation/Progress Note: Discussed results and plan for admit. Patient understands and agrees to plan. All questions were addressed. Consultation : Referral / Consult Name: Evie Winn DO Consulted With: Hospitalist Call Returned at: 22:25 Client Coordinator: Agrees with eval, Agrees with plan, Accepts admit Counseled Regarding: Diagnosis, Lab results, Need for admission Discharge & Departure Primary Impression: Chest pain Chest pain type: unspecified Qualified Code: R07.9 - Chest pain, unspecified Additional Impressions: Acute CHF (congestive heart failure) Congestive heart failure type: unspecified congestive heart failure type Qualified Code: I50.9 - Heart failure, unspecified Pericardial effusion Hypertensive crisis Disposition: ADMITTED TO HOSPITAL Discharge Condition All VS Reviewed: Yes Condition: Stable Referrals: Bessie Valdivia DO (PCP) Crit Care Except Billable Proc Time Spent: 30-74 minutes Services Performed: Patient management by me, Time spent at bedside, Reviewing test results, Reviewing imaging, Discussing patient care, Documentation in record, Time with fam/surrogate Scribe Attestation Portions of this note were transcribed by Jazlyn Fields. I, Dr. Reyes personally performed the history, physical exam and medical decision-making; I reviewed and confirmed the accuracy of the information in the transcribed note. Signed by: Rayray Hassan, 01/29/17 copies to: Bessie Valdivia Todd P DO Jan 29, 2017 18:07 Delmis Fields Jan 29, 2017 18:30
[2017-01-29 18:09] LABS: BASOPHILS % (AUTO) 1.8 % (0-3); EOSINOPHILS % (AUTO) 5.8 % (0-5); MONOCYTES % (AUTO) 12.6 % (4-12); Mean Corpuscular Hemoglobin 28.2 pg (27.0-35.0); NEUTROPHILS % (AUTO) 41.9 % (40-74); Platelet Count 187 bil/L (150-400)
[2017-01-29] MEDS ORDERED: Nitroglycerin 2% 1 Gm Ointment TOPICAL ONE (18:30)
[2017-01-29 18:40] LABS: TROPONIN T < 0.010 ug/L (0.0-0.011)
--- NOTE | 2017-01-29 18:52 | DRSVH ---
PROCEDURE: X-RAY CHEST ONE VIEW, PORTABLE ([id number]) INDICATIONS: CP TECHNIQUE: One view of the chest was acquired. COMPARISON: [facility], CR, XR CHEST 1VW (PORTABLE), 08/27/2016, 18:14. [facility], CR, XR CHEST 1VW (PORTABLE), 01/11/2015, 19:11. FINDINGS: Surgical changes and devices: playground monitor leads are seen over the chest. Lungs and pleura: No pleural effusions or pneumothorax. There are increased interstitial markings pr imarily lower lung guzman. The appearance would suggest possible early pulmonary edema slight thicken ing of the minor fissure seen as well. Mediastinum: Mediastinal contours appear normal. Heart size is enlarged. Bones and chest wall: No suspicious bony lesions. Overlying soft tissues appear unremarkable. IMPRESSION: Probable mild interstitial edema more likely cardiac and inflammatory. Dictated by: Keyshawn West M.D. on 01/29/2017 at 18:45 Approved by: Keyshawn West M.D. on 01/29/2017 at 18:50
[2017-01-29] MEDS ORDERED: Labetalol 5 mg/mL 20 mL Inj IVPUSH ONE (19:05)
--- NOTE | 2017-01-29 21:22 | DRSVH ---
PROCEDURE: CT ANGIO CHEST PULMONARY EMBOLISM ([id number]) INDICATIONS: chest pain, dyspnea TECHNIQUE: After the administration of intravenous contrast, 2 mm thick sections acquired from the pulmonary api jeronimo to the posterior costophrenic angles. 3-dimensional maximum intensity projection (MIP) coronal a nd sagittal reformats were then acquired through the thorax. For radiation dose reduction, the follo wing was used: automated exposure control, adjustment of mA and/or kV according to patient size. COMPARISON: [facility], CT, CT ANGIO CHEST PE, 10/01/2015, 10:41. FINDINGS: Image quality: Good Pulmonary arteries: Pulmonary arteries are normal in size, and demonstrate no intraluminal filling d efects to suggest central pulmonary embolism. Lungs and pleura: Increased chronic markings are present in the lungs. The lung bases the vasculature appears to be prominent with increased fluid in the lymphatics and some airspace disease. The appear ance would suggest early congestive failure versus pneumonia Mediastinum: Heart size is normal, with a moderate pericardial effusion measuring 16 mm posterior to the left atrium.. No mediastinal or hilar adenopathy. Thoracic aorta is normal in caliber and enha ncement. Esophagus is normal in caliber, without hiatal hernia. Bones and chest wall: No suspicious bony lesions. Ribs and thoracic spine appear intact throughout. Thyroid gland is considered normal. No axillary or supraclavicular adenopathy. Abdomen: Visualized upper abdominal solid organs appear normal in the early arterial phase of enhanc ement. IMPRESSION: Moderate pericardial effusion. Increased pulmonary vasculature with lymphatic prominence at the lung bases and patchy areas of airsp gladis disease suggesting congestive failure rather than patchy infiltrates and pneumonia. Dictated by: Keyshawn West M.D. on 01/29/2017 at 21:02 Approved by: Keyshawn West M.D. on 01/29/2017 at 21:21
[2017-01-29] MEDS ORDERED: Nitroglycerin 50 mg/250 mL D5W 50,000 MCG in IV Premix 1 EACH IV SCH (22:25)
[2017-01-29] MEDS ORDERED: Ondansetron 2 mg/mL 2 mL Inj IVPUSH PRN (22:35)
[2017-01-29] MEDS ORDERED: Polyethylene Glycol (PEG) 17 Gm Powder PO PRN (22:35)
[2017-01-29] MEDS ORDERED: Alum-Mag Hydrox-Simeth 30 mL Suspension PO PRN (22:35)
[2017-01-29] MEDS ORDERED: Senna-Docusate 8.6-50 mg Tablet PO PRN (22:35)
[2017-01-29] MEDS: Nitroglycerin 50 mg/250 mL D5W 50,000 MCG in IV Premix 1 EACH IV SCH (22:55)
[2017-01-29 23:25] LABS: APPEARANCE,URINE HAZY (CLEAR,HAZY); COLOR,URINE STRAW (YELLOW); OCCULT BLOOD,URINE NEGATIVE (NEGATIVE); UROBILINOGEN,URINE NORMAL (NORMAL)
--- NOTE | 2017-01-29 23:27 | PCM.HPMED ---
Subjective Date of Service Jan 29, 2017 Primary Provider: Admitting Physician: Primary Care Physician: Bessie Valdivia DO Attending Physician: Admit Status: Critical Care Chief Complaint: Headache History of Present Illness: Taqueria Gonzalez is an 81-year-old Welsh-speaking female with past medical history significant for heart failure with preserved ejection fraction secondary to valvular disease, diabetes mellitus type II, hypertension, and hyperlipidemia who presents to [facility] ED from [facility] clinic due to elevated blood pressure of 218/110 associated with dizziness, headache, and vague chest pain. Patient states he symptoms been going on for 1 month. Over the last 8 days they have become progressively worse. She states she is compliant with all medications although review of outpatient records would suggest otherwise. Patient states her headache is throbbing sensation that has waxed and waned over the last 8 days. Her dizziness and shortness of breath are also worse when the headache is at its greatest. She denies any palpitations and describes the chest pain as a pain in her neck that radiates to her head contributing to the headache. She denies any nausea or vomiting. She has been urinating frequently and states she has some mild dysuria. She denies any back pain or tearing sensation. She has some blurred vision but this is chronic in nature due to her cataracts and she denies any recent worsening. Patient lives with her son. Denies recent falls. She denies fever, chills, night sweats, weight loss, decreased appetite, or change in bowel habits. On presentation to the ED vitals were temperature 36.7, pulse 73, respiratory rate 14 and saturating 94% on room air, and blood pressure 198/82. Initial labs were largely unremarkable. Patient was initially given a total of 40 mg of IV labetalol. Blood pressure did not improve and she was subsequently started on nitroglycerin drip. In the ED she also had a chest x-ray, CT angiogram, and CT head which showed no acute disease process including no aortic dissection or brain bleed. It was notable for a pericardial effusion. Patient had an echocardiogram in August 2015 which showed a small pericardial effusion but the appearance would suggest it has increased in size since this time. Review of Systems: Comprehensive review of systems was conducted with the patient and found to be negative except as noted above in HPI. Allergies Coded Allergies: hydrochlorothiazide (Verified Allergy, Severe, LUPUS-LIKE SKIN ERUPTION, ) triamterene (Verified Allergy, Severe, LUPUS-LIKE SKIN ERUPTION, 01/30/17) WHEN GIVEN IN COMBO (HCTZ + TRIAMTERENE) Penicillins (Verified Allergy, Intermediate, Hives, 01/30/17) ciprofloxacin (Verified Allergy, Unknown, MD REQUESTED PT TO D/C - UNKNOWN WHY, 01/30/17) Home Medications Per [facility] records: Aspirin 81 mg daily Coreg 6.25 mg twice a day Levothyroxine 75 MCG daily Losartan 50 mg daily Metformin 500 mg twice a day Pravastatin 20 mg daily Patient reports taking labetalol 100 mg but this is not seen on outpatient records. Day team to complete medication reconciliation. PMH Hypertension Depression Hyperlipidemia Carotid artery stenosis Hypothyroidism Heart failure with preserved ejection fraction secondary to valvular disease Type 2 diabetes mellitus non-insulin using Surgical History Colonoscopy EGD Cataract surgery Family History No family history of premature coronary artery disease Father - diabetes Social History Hx Alcohol Use: No Hx Substance Use: No Hx Tobacco Use: No Smoking Status: Never Smoker Living Arrangement: with Family Exam Vital Signs Vital Sign - Last Date Time Temp Pulse Resp B/P Pulse Ox O2 Delivery O2 Flow Rate FiO2 01/29/17 23:12 74 205/77 01/29/17 22:46 97 Room Air 01/29/17 20:52 36.7 17 2 Exam General: No acute distress, elderly, thin female. Welsh-speaking. HEENT: Normocephalic, atraumatic. External ears without defect. Pupils equal, round, and reactive to light and accommodation. Anicteric sclerae, moist conjunctivae, and no lid lag. Upper and lower dentures present. Neck: Supple with full range of motion. No jugular venous distension. Cardiovascular: Regular rate and rhythm with systolic murmur present. Pulmonary: Lungs with faint, diffuse, bilateral crackles. Normal respiratory effort with no use of accessory muscles. Abdomen: Bowel tones present. Soft, nontender, nondistended. No hepatosplenomegaly or masses appreciated. Extremities: No clubbing, cyanosis, edema, or lymphadenopathy appreciated. Skin: Normal temperature, turgor, and texture; no rash, ulcers, or subcutaneous nodules appreciated. Neurological: Cranial nerves grossly intact. Normal muscle strength, tone, and bulk. Reflexes, coordination, and sensory function within normal limits. No known gait impairment. Psychiatric: Normal mood and affect. Alert and oriented to person, place, and time. 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 No acute intracranial abnormality. Interpretation / Wet Read by: Interpret - Radiologist CT ANGIO CHEST PULMONARY EMBOLISM ([id number]) IMPRESSION: Moderate pericardial effusion. Increased pulmonary vasculature with lymphatic prominence at the lung bases and patchy areas of airspace disease suggesting congestive failure rather than patchy infiltrates and pneumonia. Dictated by: Keyshawn West M.D. on 01/29/2017 at 21:02 Approved by: Keyshawn West M.D. on 01/29/2017 at 21:21 X-RAY CHEST ONE VIEW, PORTABLE ([id number]) IMPRESSION: Probable mild interstitial edema more likely cardiac and inflammatory. Dictated by: Keyshawn West M.D. on 01/29/2017 at 18:45 Approved by: Keyshawn West M.D. on 01/29/2017 at 18:50 Cardiac Echo Impressions Echocardiogram Report Interpretation Summary 1) Mild concentric left ventricular hypertrophy with normal size and function (EF 60-65%). 2) Normal right ventricular size and function. 3) Severely calcific mitral valve with mild to moderate mitral regurgitation. No mitral stenosis present. 4) Mild aortic stenosis present (mean gradient 9mmHg, valve area 1.5cm2, severity ratio 0.53). 5) Small pericardial effusion noted. No echocardiographic evidence of tamponade. 6) Compared to the Echo done 01/13/2015, no significant change. Reading Physician:PM Assessment & Plan Manual Carlos is an 81-year-old female with past medical issues significant for heart failure with preserved ejection fraction secondary to valvular disease , diabetes mellitus type II, hypertension, and hyperlipidemia who presents to [facility] ED from [facility] clinic due to elevated blood pressure of 218/110 associated with dizziness, headache, and vague chest pain. Hypertensive of emergency, present on admission, active. Likely secondary to medication noncompliance although other etiologies cannot be excluded. - In the ED patient was refractory to labetalol. Nitroglycerin drip started in the ED and continued as it has proven to be effective. Titrate drip to maintain blood pressure between 165-175 as patient has likely been running systolics in the 200s for over a week. - Labs without signs of end organ damage. Chest x-ray, CT chest angiogram, and CT head showed no aortic dissection, PE, or acute intracranial abnormality. - Home medications include Coreg 6.25 mg BID and losartan 50 mg daily per outpatient records. Patient states she is taking labetalol which is not present in her outpatient records. Day team to clarify home medication regimen. Pericardial effusion, present on admission, active. Chronicity of pericardial effusion difficult to ascertain. Echo cardiogram in August 2015 showed a small pericardial effusion. Today CT shows that this is likely enlarged but difficult to determine. Patient does not seem to be symptomatic or have signs of tamponade. - Patient at this time does not seem infectious and concerns for pericarditis are minimal. - Echocardiogram ordered for the morning. - Continue to monitor for signs of tamponade. 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 Patient does not appear decompensated. No JVD or peripheral edema. - Repeat echo to evaluate pericardial effusion as above will also shed light on any new changes compared to last echo from August 2015. Diabetes mellitus type II, present on admission, chronic. - Hold home regimen of metformin 500 mg twice a day. - Low-dose correctional scale with lispro. - Hemoglobin A1c pending. Last hemoglobin A1c 7.9 on 12/27/16. Hyperlipidemia, present on admission, chronic. - Home regimen of pravastatin held. PRN Medications - Acetaminophen as needed for mild pain/fever/headache - Bowel regimen as needed - Antiemetic as needed Day team to complete medication reconciliation. Patient states code status is full as her children wish it to be this way. Further discussion with family present may be beneficial. Patient is admitted under inpatient status with expected length of stay greater than 2 midnights due to severity of presenting symptoms, risk of adverse event, and complexity of treatment plan. Pain Evaluation: Adequate Pain Control GI Prophylaxis: Not indicated VTE Prophylaxis: Sub-Q Heparin (Unfractionated) VTE Mechanical Devices: Intermittant Pneumatic CD Resuscitation Status: CPR: Attempt Resuscitation Attending Statement The patient was seen and examined together with house staff on 01/30/2017 and I agree with the history, exam and plan as outlined in the note above. BLU MUHAMMAD DO Jan 29, 2017 23:27 Evie Winn DO Jan 30, 2017 04:39
[2017-01-30] VITALS (10 sets, daily range): BP systolic 135–208; BP diastolic 53–105; PULSE 76–109; RESP 15–22; O2SAT 95–99
--- NOTE | 2017-01-30 02:32 | NUR ---
Admit to CCU Pt admitted to CCU room 2012 in stable condition from ED. Danish speaking only with no family in room. Waste Collection Driver used. Reports 01/10 [place]. A&O x 3. Able to [place] with CMS intact. Denies cardiac CP. Tele shows SR 80s. Hypertensive on nitro gtt. SpO2 mid to high 90s on 2L NC. Wheezes heard on assessment.Denies worsening SOB, n/v/d or abdominal pain. Frequent voiding. UA from ED WNL. Oriented pt to room, floor and call light. MD at bedside and reports BP goal is SBP 170s-180s. Titrating nitro gtt to effect. Will continue to monitor. Care ongoing
[2017-01-30 05:52] LABS: Mean Corpuscular Hemoglobin 27.9 pg (27.0-35.0); Mean Corpuscular Volume 83.9 fL (81-100)
--- NOTE | 2017-01-30 06:23 | NUR ---
BP/Nitro gtt BP remains sensitive to attempts at weaning nitro gtt. When gtt off SBP 180s-200s. At lower doses (20-30mcgs/min) SBP 130s-150s. Oral Cozaar ordered for pt which was administered. Tolerated well. Continue to monitor. Care ongoing
--- NOTE | 2017-01-30 07:58 | DRSVH ---
PROCEDURE: CT BRAIN WITHOUT CONTRAST ([id number]) INDICATIONS: headache hypertensive TECHNIQUE: Noncontrast 4.5 mm thick angled axial sections acquired from the foramen magnum to the vertex, with c oronal reformats. COMPARISON: [facility], CT, CT BRAIN WO CON, 08/31/2015, 17:08. FINDINGS: Image quality: Excellent. CSF spaces: Basal cisterns are patent. No extra-axial fluid collections. The ventricles are symmet guerrero in size and shape. Prominent suprasellar cistern, probably secondary to empty sella. Brain: No intracranial bleeds or masses. There is mild cerebral volume loss for age, with resultant ventricular and sulcal prominence. There are mild periventricular and deep white matter chronic sma ll vessel ischemic changes. There is intracranial internal carotid artery atherosclerosis. Skull and face: Calvarium and visualized facial bones appear intact, without suspicious lesions. Sinuses: Visualized sinuses and mastoids are clear. IMPRESSION: 1. No acute intracranial abnormalities. 2. Cerebral volume loss and chronic microvascular ischemic changes. No significant discrepancy with the car shifter radiology preliminary report. Dictated by: Ronnie Camargo M.D. on 01/30/2017 at 7:54 Approved by: Ronnie Camargo M.D. on 01/30/2017 at 7:56
--- NOTE | 2017-01-30 08:43 | PCM.PNMED ---
Subjective Date of Service Jan 30, 2017 Subjective Pt blood pressures have continued to trend down. Nitro drip was taken off. Losartan started today. Downgraded from CCU to PCC status. Exam Vital Signs Vital Sign - Last Date Time Temp Pulse Resp B/P Pulse Ox O2 Delivery O2 Flow Rate FiO2 01/30/17 07:54 36.9 79 15 175/71 98 Nasal Cannula 2.00 Intake and Output 01/29/17 01/29/17 01/30/17 Cumulative From/Thru 15:00 23:00 07:00 01/29/17 17:36 - 01/30/17 06:12 Intake Total 61 ml 61 ml Output Total 450 ml 450 ml Balance -389 ml -389 ml Intake IV Total 61 ml 61 ml Output Urine Total 450 ml 450 ml # Voids 1 1 # Bowel Movements 1 1 Exam General: Awake and alert in no acute distress, lying in hospital, arousable to voice Montenegrin-speaking only HEENT: Normocephalic, atraumatic. External ears without defect. Pupils equal, round, and reactive to light and accommodation. Neck: Supple with full range of motion. No jugular venous distension. Cardiovascular: Regular rate and rhythm with systolic murmur present. No skips rubs or gallops. Pulmonary: Normal respiratory effort with no use of accessory muscles. Diminished lung sounds with inspiratory crackles heard best at lower lung guzman. Abdomen: Bowel tones present. Soft, nontender, nondistended. Extremities: No clubbing, cyanosis, edema Skin: Normal temperature, turgor, and texture Neurological: Cranial nerves grossly intact. IVs and Medications Medications Reviewed: Medications were reviewed in detail Lab and Diagnostics Result Diagram: 01/30/1751901/30/17 05 X-Rays, CTs and MRIs . X-RAY CHEST ONE VIEW, PORTABLE IMPRESSION: Probable mild interstitial edema more likely cardiac and inflammatory. Dictated by: Keyshawn West M.D. on 01/29/2017 CT ANGIO CHEST PULMONARY EMBOLISM IMPRESSION: Moderate pericardial effusion. Increased pulmonary vasculature with lymphatic prominence at the lung bases and patchy areas of airspace disease suggesting congestive failure rather than patchy infiltrates and pneumonia. Dictated by: Keyshawn West M.D. on 01/29/2017 CT BRAIN WITHOUT CONTRAST IMPRESSION: 1. No acute intracranial abnormalities. 2. Cerebral volume loss and chronic microvascular ischemic changes. No significant discrepancy with the psychologist experimental radiology preliminary report. Dictated by: Ronnie Camargo M.D. on 01/30/2017 Cardiac Echo Impressions Echocardiogram Report Interpretation Summary 1) Mild concentric left ventricular hypertrophy with normal size and function (EF 60-65%). 2) Normal right ventricular size and function. 3) Severely calcific mitral valve with mild to moderate mitral regurgitation. No mitral stenosis present. 4) Mild aortic stenosis present (mean gradient 9mmHg, valve area 1.5cm2, severity ratio 0.53). 5) Small pericardial effusion noted. No echocardiographic evidence of tamponade. 6) Compared to the Echo done 01/13/2015, no significant change. Reading Physician:PM Assessment & Plan Ms. 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 Hypertensive of emergency, present on admission, active. Likely secondary to medication noncompliance although other etiologies cannot be excluded. - In the ED patient was refractory to labetalol. Nitroglycerin drip started in the ED and continued as it has proven to be effective. Blood pressure decreased to the point where nitroglycerin was DC'd. - BP said began to elevate again, labetalol 100 mg twice a day initiated, losartan started 50 mg BID - Labs without signs of end organ damage. Chest x-ray, CT chest angiogram, and CT head showed no aortic dissection, PE, or acute intracranial abnormality. - Home medications include Coreg 6.25 mg BID and losartan 50 mg daily per outpatient records. Possibility of home labetalol, awaiting verification Pericardial effusion, present on admission, active. Chronicity of pericardial effusion difficult to ascertain. Echo cardiogram in August 2015 showed a small pericardial effusion. Today CT shows that this is likely enlarged but difficult to determine. Patient does not seem to be symptomatic or have signs of tamponade. - Patient at this time does not seem infectious and concerns for pericarditis are minimal. - Echocardiogram shows slight worsening from prior - Continue to monitor for signs of tamponade. 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 Patient does not appear decompensated. No JVD or peripheral edema. - Repeat echo to evaluate pericardial effusion as above will also shed light on any new changes compared to last echo from August 2015. Diabetes mellitus type II, present on admission, chronic. - Hold home regimen of metformin 500 mg twice a day. - Low-dose correctional scale with lispro. - Last hemoglobin A1c 7.9 on 12/27/16. Hyperlipidemia, present on admission, chronic. - Home regimen of pravastatin held. Probable right sided heart failure -Echo as above -Imaging as above -O2 requirements have remained at low flow nasal cannula to maintain saturations -IV Lasix PRN Medications - Acetaminophen as needed for mild pain/fever/headache - Bowel regimen as needed - Antiemetic as needed Patient states code status is full as her children wish it to be this way. Further discussion with family present may be beneficial. Patient is admitted under inpatient status with expected length of stay greater than 2 midnights due to severity of presenting symptoms, risk of adverse event, and complexity of treatment plan. GI Prophylaxis: Not indicated VTE Prophylaxis: Sub-Q Heparin (Unfractionated) VTE Mechanical Devices: Intermittant Pneumatic CD Resuscitation Status: CPR: Attempt Resuscitation Attending Statement The patient was seen and examined together with Dr. Salgado on January 30 and I agree with the history, exam findings, and plan as outlined in the note above. I did participate in all aspects of the services provided today, including documentation and the plan of care. We will continue to titrate her medications for blood pressure control. We have increased her losartan from 50 daily to 50 twice a day and labetalol twice a day. She is improving. She also has evidence of acute diastolic heart failure with mild pulmonary edema which is chronic hypoxia. We will diurese her and treat the primary cause which is likely her poorly controlled hypertension. STORM SALGADO DO Jan 30, 2017 08:42 Alfa Acuna MD Feb 01, 2017 08:28
--- NOTE | 2017-01-30 13:34 | DRSVH ---
[facility] [address] [place] [address] Echocardiogram Report Name: ANASTASIYA CASTELLANO VStudy Date : 01/30/2017 Height: 58 in Hospital Exam Location: [facility] Weight: 85 lb Gender: Female BSA: 1.3 m2 : 1935 Age: 81 yrs BP: 121/ 49 mmHg Reason For Study: PERICARDIAL EFFUSION Ordering Physician: HOSPITALIST [facility] Performed By: Betsey Newsome Referring Physician: Mihir Lopez Interpretation Summary 1) Normal left ventricular size, thickness, and function (EF 60-65%). 2) Normal right ventricular size and function. 3) Severely calcific mitral valve with mild mitral regurgitation. No mitral stenosis present. 4) Mild aortic stenosis present (mean gradient 9mmHg, severity ratio 0.55). 5) Moderate pericardial effusion noted. No echocardiographic evidence of tamponade. 6) Compared to the Echo done 09/01/2015, pericardial effusion has increased from small to moderate on today's study. Procedure: A two-dimensional transthoracic echocardiogram with color flow and Doppler was performed. The study quality was technically adequate. Comparison is made with the echocardiogram of 09/01/2015. The patient was in normal sinus rhythm during the exam. Left Ventricle: The left ventricle is normal in size, wall thickness, and systolic function without any focal wall motion abnormalities. The left ventricular ejection fraction is normal. The ejection fraction is estimated to be 55-60%. Assessment of diastolic parameters suggests a pseudonormalization pattern, consistent with elevated filling pressures. Right Ventricle: The right ventricle is mildly dilated. The right ventricular systolic function is normal. Atria: The left atrium is severely dilated. The right atrium is normal in size. There is no Doppler evidence for an interatrial shunt. Mitral Valve: The mitral valve leaflets appear thickened, but open well. There is moderate to severe mitral annular calcification. There is mild mitral regurgitation. Aortic Valve: The aortic valve is trileaflet. The aortic valve is mildly calcified. The calculated aortic valve area is 0.98 cm2. The peak aortic velocity is 1.8 m/sec. The peak aortic velocity on the previous exam was 2.1 m/sec. The aortic valve mean gradient is 8 mmHg. Tricuspid Valve: The tricuspid valve is normal. There is trace tricuspid regurgitation. The right ventricular systolic pressure is estimated at least 27 mmHg assuming a right atrial pressure of 3 mm Hg. Pulmonic Valve: The pulmonic valve leaflets are thin and pliable; valve motion is normal. There is trace pulmonic regurgitation. Great Vessels: The aortic root is normal size. The ascending aorta is normal in size. The aortic arch is normal in size. The pulmonary artery is not well visualized, but is probably normal size. The IVC is of normal diameter and collapses greater than 50% with a sniff. This suggests a low right atrial pressure of 3 mm Hg. Pericardium/ Pleura There is a moderate pericardial effusion that is circumferential. There are no echocardiographic or Doppler indications for cardiac tamponade. There is no pleural effusion. MMode/2D Measurements & Calculations LVIDd: 4.3 cm RA long axis AoV Opening LVIDs: 2.7 cm LA A2 area: 25.5 cm FS: 37.7 % LA A4 area: 24.1 cm RA area Ao root diam EPSS: 1.0 cm LA length (vol) IVSd: 0.87 cm : 12.5 cm asc Aorta Diam LVPWd: 1.0 cm LA vol: 93.6 ml RA vol LA vol index : 30.1 ml Ao Arch Diam (Prox RA Trans): 2.3 cm : 23.8 mm2 IVC diam: 1.9 cm LV ruggiero. diameter/BSA LV sys. diameter/BSA RVD1 (basal) RVD2 (mid): 1.8 cm (cm/m^2): 3.4 (cm/m^2): 2.1 Doppler Measurements & Calculations Ao V2 max MV E max raheem MV E/A: 0.86 TR max raheem : 179.4 cm/sec : 115.5 cm/sec Med Peak E' Raheem : 247.2 cm/sec Ao max PG MV A max raheem TR max PG : 12.9 mmHg : 134.4 cm/sec E/E' med: 40.1 : 24.4 mmHg Ao mean PG MV P1/2t: 83.9 msec Lat Peak E' Raheem PA V2 max : 89.4 cm/sec LVOT Max Raheem E/E' lat: 41.1 PA mean PG : 102.9 cm/sec E/e' average: 40.6 sev ratio: 0.55 PA Accel Time AI P1/2t : 0.10 sec : 440.3 msec AI dec slope : 237.7 cm/s2c MV V2 mean MV P1/2t max raheem Ao V2 mean LV V1 max PG : 94.8 cm/sec : 133.9 cm/sec MV mean PG MVA(P1/2t): 2.6 cm2 Ao V2 VTI: 37.5 cm LV V1 VTI : 20.5 cm MV V2 VTI: 41.1 cm MV dec time : 0.28 sec PA V2 mean : 60.3 cm/sec Reading Physician:01:33 PM
[2017-01-30] MEDS ORDERED: DORZ10DR20 BOTH_EYES (14:22)
--- NOTE | 2017-01-30 15:13 | NUR ---
BP/Nitro: @ 0800 BP 175/75, Tele: SR 70's. Nitro gtt infusing at 20mcg/min at this time. Patient denies CP/pressure, palpitations, SOB, FRANKLIN, dizziness or vision changes. @ 0830 BP 135/58, Nitro gtt titrated down to 10mcg/min. @ 0900 BP 137/55 and nitro gtt was turned off. @ 1000 BP 121/49, Losartan 50mg PO was administered in attempts to maintain stable BP. BP slowly began to increase and @ 1350 BP 175/66, pt asymptomatic. Dr Salgado was notified. Order for Labetalol 100mg PO rec'd and medication was administered. @ 1417 BP 152/53, Tele: SR 70's. Continued vitals monitoring and frequent rounding in place.
[2017-01-30] MEDS ORDERED: Glucose 40% Oral Gel 15 Gm Tube PO PRN (17:50)
[2017-01-30] MEDS: Heparin 5,000 Unit/mL Inj SUBQ SCH (19:18)
[2017-01-30] MEDS: Insulin LISPRO 300 Unit/3 mL Inj SUBQ SCH (22:00)
[2017-01-30] MEDS: Nitroglycerin 50 mg/250 mL D5W 50,000 MCG in IV Premix 1 EACH IV SCH (22:35)
[2017-01-31] VITALS (8 sets, daily range): BP systolic 106–143; BP diastolic 60–67; PULSE 70–92; RESP 18–20; O2SAT 89–99
[2017-01-31] MEDS: Heparin 5,000 Unit/mL Inj SUBQ SCH ×2 (00:42→09:31)
[2017-01-31 02:55] LABS: BASOPHILS % (AUTO) 1.2 % (0-3); EOSINOPHILS % (AUTO) 5.8 % (0-5); Mean Corpuscular Hemoglobin 27.5 pg (27.0-35.0); Mean Corpuscular Volume 84.1 fL (81-100); NEUTROPHILS % (AUTO) 42.3 % (40-74); Platelet Count 173 bil/L (150-400)
--- NOTE | 2017-01-31 05:16 | NUR ---
Tele/ A&O x2 per family, pt doesn;t really know why she is in hospital at this time, 3 L O2 per NC, Saline locked x2, lungs slightly diminished, Compliant with care. Tele SR 80's
[2017-01-31] MEDS: Insulin LISPRO 300 Unit/3 mL Inj SUBQ SCH (08:00)
[2017-01-31] MEDS ORDERED: Furosemide 10 mg/mL 2 mL Inj IVPUSH ONE (09:15)
--- NOTE | 2017-01-31 09:36 | DRSVH ---
PROCEDURE: X-RAY CHEST ONE VIEW, PORTABLE ([id number]) INDICATIONS: crackles heard in lung feilds TECHNIQUE: One view of the chest was acquired. COMPARISON: [facility], CT, CT ANGIO CHEST PE, 01/29/2017, 20:33. [facility] , CR, XR CHEST 1VW (PORTABLE), 08/27/2016, 18:14. [facility], CR, XR CHEST 1VW (PORTABLE) , 01/29/2017, 18:02. FINDINGS: Surgical changes and devices: None. Lungs and pleura: No pleural effusions or pneumothorax. Diminishing pulmonary edema which has not c ompletely resolved. Mediastinum: Mediastinal contours appear normal. Heart size is enlarged. Bones and chest wall: No suspicious bony lesions. Overlying soft tissues appear unremarkable. IMPRESSION: Resolving edema. Dictated by: Chato Alberto Hernesto Interpreted: Keyshawn West MD on 01/31/2017 at 9:08 Approved by: Keyshawn West M.D. on 01/31/2017 at 9:34
[2017-01-31] MEDS ORDERED: LABE100T4 PO (11:53)
--- NOTE | 2017-01-31 11:59 | PCM.DIMED ---
STORM SALGADO 01/31/17 1159: Discharge Instructions Date of Service Jan 31, 2017 Dates of Hospitalization Jan 30, 2017 at 00:39 Discharge Diagnosis Discharge Diagnosis Hypertensive of emergency Pericardial effusion Heart failure with preserved ejection fraction likely secondary to valvular disease Diabetes mellitus type II Hyperlipidemia Probable right sided heart failure Medication Instructions Additional med instructions Please continue to take all of your regular prescribed medications. I have discontinued your medication Coreg I have started you on a new medication called labetalol. Please take 100 mg of this medication by mouth 2 times per day in the morning and in the night Please continue to take your losartan as previously prescribed. This dose may need to be increased when he follow-up with your primary care physician this coming week. Radiation Protection Engineer using google translate Por favor siga tomando todos los medicamentos regularmente prescritos. Yo he continuado frazier medicamento Coreg Yo empec en un nuevo medicamento llamado labetalol. Por favor tome 100 mg de arleen medicamento por va oral 2 veces al da por la maana y en la noche Por favor, siga tomando frazier losartan prescrito anteriormente. Esta dosis puede necesitar ser aumentado cuando se l seguimiento con frazier primario cuidado mdico esta semana. Traductor usando google translate Diet Discharge Diet: Heart Healthy Activity Discharge Activity: Limited until seen by PCP Call your provider Call your provider for: Fever or Chills, Shortness of breath, Bleeding, Chest pain, Vomitting, Excessive diarrhea, Weakness (unilateral) Patient Instructions Patient Instructions Please follow up at the residency clinic this coming week regarding this hospital administration and possible increase in your antihypertensive medications. Por favor, seguimiento en la clnica residencia esta semana que viene en relaci n con esta administracin del hospital y el posible aumento en joelle medicamentos antihipertensivos. Follow-up plan Patient is discharged to home in stable condition, follow-up at the residency clinic within 1 week. Paciente es dado de zacarias a casa en condiciones estables, seguimiento en la cl bel residencia dentro de 1 semana. Follow-up Provider: [facility] Residency Clinic Follow-up with PCP in: 1 week Alfa Acuna MD 02/01/17 0912: Discharge Instructions Attending's Statement The patient was seen and examined together with Dr. Salgado on January 31 and I agree with the history, exam findings, and plan as outlined in the note above. I did participate in all aspects of the services provided today, including documentation and the plan of care. The patient will be discharged on increased doses of her losartan and a new doses of labetalol. We will have close follow-up with her primary doctor and follow up of electrolytes within the next week. STORM SALGADO DO Jan 31, 2017 11:59 Alfa Acuna MD Feb 01, 2017 09:12
--- NOTE | 2017-01-31 14:13 | NUR ---
discharge d/c instructions provided to pt and her daughter using plate fitter, Jojo. Pt and daughter allowed time to ask questions which were answered. They asked about a glucometer and home BP machine. Spoke wtih Dr Salgado who states this will be addressed at apt with residency clinic. Apt made for pt at residency clinic for next saturday. Pt aware. D/c home with tank of O2 that was delivered. [employer] will deliver remainder of supplies, family will be present as well. PIVx2 removed prior to d/c, tip intact. Pt took all belongings with her.
--- NOTE | 2017-01-31 14:48 | NUR ---
Social Work: Initial Assessment / Discharge Data: See initial assessment. Patient is an 81 year old female who was admitted on 01/30/17 for hypertensive emergency & CHF per H&P. EMR reviewed. SW met with patient to discuss discharge planning. Patient is Latvian speaking only therefore, an church administrator was called to bedside to assist. Patient informed SW that she lives in [facility] [facility] with her son Narciso Jiang ([phone]). Patient states that uses a cane to assist with ambulation. Patient states that she does not drive and relies on her children for assistance with transportation. Patient states that she was received home health RN services in 09/2016 but nothing currently. Patient denies hx of SNF placement. Patient denies having half-way care insurance or VA benefits. Patient states that her son Narciso is DPOA and denies having AD. Patient is in agreement with receiving information on advance directives. Patient states that upon discharge her daughter will assist with transportation. [place] was unable to provide discharge planning checklist booklet due to only having a copy of Uzbek version. SW provided phone number and encouraged to call with any questions/concerns. Assessment: Patient will discharge home with son. Plan: Patient will discharge home with son when medically stable. Patient has been reviewed by MD and has been deemed medically stable. Patient will discharge home today. Transportation will be provided by patient's daughter. No needs anticipated at this time. HARVINDER Holley Addendum: 01/31/17 at 1504 by LEXUS GARCÍA SS Amended: Links added.
--- NOTE | 2017-01-31 18:51 | PCM.DC.MED ---
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 X-RAY CHEST ONE VIEW, PORTABLE IMPRESSION: Probable mild interstitial edema more likely cardiac and inflammatory. Dictated by: Keyshawn West M.D. on 01/29/2017 CT ANGIO CHEST PULMONARY EMBOLISM IMPRESSION: Moderate pericardial effusion. Increased pulmonary vasculature with lymphatic prominence at the lung bases and patchy areas of airspace disease suggesting congestive failure rather than patchy infiltrates and pneumonia. Dictated by: Keyshawn West M.D. on 01/29/2017 CT BRAIN WITHOUT CONTRAST IMPRESSION: 1. No acute intracranial abnormalities. 2. Cerebral volume loss and chronic microvascular ischemic changes. No significant discrepancy with the eating disorder specialist radiology preliminary report. Dictated by: Ronnie Camargo M.D. on 01/30/2017 Cardiac Echo Impression Echocardiogram Report Interpretation Summary 1) Mild concentric left ventricular hypertrophy with normal size and function (EF 60-65%). 2) Normal right ventricular size and function. 3) Severely calcific mitral valve with mild to moderate mitral regurgitation. No mitral stenosis present. 4) Mild aortic stenosis present (mean gradient 9mmHg, valve area 1.5cm2, severity ratio 0.53). 5) Small pericardial effusion noted. No echocardiographic evidence of tamponade. 6) Compared to the Echo done 01/13/2015, no significant change. Reading Physician:PM Brief History History of present illness per Dr. Cast are 01/29/2017 "Ms. Jiang is an 81-year-old Dutch-speaking female with past medical history significant for heart failure with preserved ejection fraction secondary to valvular disease, diabetes mellitus type II, hypertension, and hyperlipidemia who presents to [facility] ED from [facility] clinic due to elevated blood pressure of 218/ 110 associated with dizziness, headache, and vague chest pain. Patient states he symptoms been going on for 1 month. Over the last 8 days they have become progressively worse. She states she is compliant with all medications although review of outpatient records would suggest otherwise. Patient states her headache is throbbing sensation that has waxed and waned over the last 8 days. Her dizziness and shortness of breath are also worse when the headache is at its greatest. She denies any palpitations and describes the chest pain as a pain in her neck that radiates to her head contributing to the headache. She denies any nausea or vomiting. She has been urinating frequently and states she has some mild dysuria. She denies any back pain or tearing sensation. She has some blurred vision but this is chronic in nature due to her cataracts and she denies any recent worsening. Patient lives with her son. Denies recent falls. She denies fever, chills, night sweats, weight loss, decreased appetite , or change in bowel habits. On presentation to the ED vitals were temperature 36.7, pulse 73, respiratory rate 14 and saturating 94% on room air, and blood pressure 198/82. Initial labs were largely unremarkable. Patient was initially given a total of 40 mg of IV labetalol. Blood pressure did not improve and she was subsequently started on nitroglycerin drip. In the ED she also had a chest x-ray, CT angiogram, and CT head which showed no acute disease process including no aortic dissection or brain bleed. It was notable for a pericardial effusion. Patient had an echocardiogram in August 2015 which showed a small pericardial effusion but the appearance would suggest it has increased in size since this time." Hospital Course Ms. Jiang is an 81-year-old female with past medical issues significant for heart failure with preserved ejection fraction secondary to valvular disease, diabetes mellitus type II, hypertension, and hyperlipidemia who presents to [facility] ED from [facility] clinic due to elevated blood pressure of 218/110 associated with dizziness, headache, and vague chest pain. Hypertensive of emergency, present on admission, active. Likely secondary to medication noncompliance although other etiologies cannot be excluded. - In the ED patient was refractory to labetalol. Nitroglycerin drip started in the ED and continued as it has proven to be effective. Blood pressure decreased to the point where nitroglycerin was DC'd. - BP said began to elevate again, labetalol 100 mg twice a day initiated, losartan started 50 mg BID - Labs without signs of end organ damage. Chest x-ray, CT chest angiogram, and CT head showed no aortic dissection, PE, or acute intracranial abnormality. - Home medications include Coreg 6.25 mg BID and losartan 50 mg daily per outpatient records. Possibility of home labetalol, awaiting verification Pericardial effusion, present on admission, active. Chronicity of pericardial effusion difficult to ascertain. Echo cardiogram in August 2015 showed a small pericardial effusion. Today CT shows that this is likely enlarged but difficult to determine. Patient does not seem to be symptomatic or have signs of tamponade. - Patient at this time does not seem infectious and concerns for pericarditis are minimal. - Echocardiogram shows slight worsening from prior - Continue to monitor for signs of tamponade. 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 Patient does not appear decompensated. No JVD or peripheral edema. - Repeat echo to evaluate pericardial effusion as above will also shed light on any new changes compared to last echo from August 2015. Diabetes mellitus type II, present on admission, chronic. - Hold home regimen of metformin 500 mg twice a day. - Low-dose correctional scale with lispro. - Last hemoglobin A1c 7.9 on 12/27/16. Hyperlipidemia, present on admission, chronic. - Home regimen of pravastatin held. Probable right sided heart failure -Echo as above -Imaging as above -O2 requirements have remained at low flow nasal cannula to maintain saturations -IV Lasix PRN Medications - Acetaminophen as needed for mild pain/fever/headache - Bowel regimen as needed - Antiemetic as needed Patient states code status is full as her children wish it to be this way. Further discussion with family present may be beneficial. Patient is admitted under inpatient status with expected length of stay greater than 2 midnights due to severity of presenting symptoms, risk of adverse event, and complexity of treatment plan. Exam Vital Signs (Last) Date Time Temp Pulse Resp B/P Pulse Ox O2 Delivery O2 Flow Rate FiO2 01/31/17 10:07 88 Nasal Cannula 2.00 01/31/17 10:05 21 01/31/17 08:02 36.9 18 139/66 89 Exam General: Awake and alert in no acute distress, sitting up in bedside chair, Dutch-speaking only HEENT: Normocephalic, atraumatic. ation. Neck: Supple with full range of motion. No jugular venous distension. Cardiovascular: Regular rate and rhythm with systolic murmur present. No skips rubs or gallops. Pulmonary: Normal respiratory effort with no use of accessory muscles. Good auscultation upper anterior lobe Abdomen: Bowel tones present. Soft, nontender, nondistended. Extremities: No clubbing, cyanosis, edema Skin: Normal temperature, turgor, and texture Neurological: Cranial nerves grossly intact Test 01/29/17 18:00 01/29/17 21:00 01/30/17 05:20 01/31/17 02:30 D-Dimer 1.02mg/L FEU (<0.50) Magnesium Level 2.0mg/dL (1.6-2.6) Pro-B-Type Natriuretic Peptide 2503pg/mL (0-738) Thyroid Stimulating Hormone (TSH) 0.071uIU/mL (0.450-4.500) Free Thyroxine 1.70ng/dL (0.82-1.77) Urine Color Straw (YELLOW) Urine Appearance Hazy (CLEAR,HAZY) Urine pH 7.0 (5.0-8.0) Urine Specific [place] 1.009 (1.003-1.035) Urine Protein Negativemg/dL (NEG,TRACE) Urine Glucose (UA) Negativemg/dL (NEGATIVE) Urine Ketones Negativemg/dL (NEGATIVE) Urine Occult Blood Negative (NEGATIVE) Urine Nitrite Negative (NEGATIVE) Urine Bilirubin Negative (NEGATIVE) Urine Urobilinogen Normalmg/dL (NORMAL) Urine Leukocyte Esterase Negative (NEGATIVE) Urine RBC 0-2/hpf (0-2) Urine WBC 0-5/hpf (0-5) Urine Epithelial Cells Occasional/hpf (NONE-MOD) Urine Crystals Amorphous phosphates Urine Bacteria Few/hpf (NONE-FEW) Urine Hyaline Casts None/lpf (NONE) Urine Granular Casts None seen (NONE SEEN) Urine Waxy Casts None seen (NONE SEEN) Urine Red Blood Cell Casts None seen (NONE SEEN) Urine White Blood Cell Casts None seen (NONE SEEN) Urine Mucus Present (None Seen) Urine Trichomonas None seen (NONE SEEN) Urine Yeast None (NONE SEEN) Urinalysis Comment None Urine Culture Reflexed Not indicated Hold Urine Received (Received) Hemoglobin A1c 7.7% (4.8-5.6) Troponin T 0.010ug/L (0.0-0.011) White Blood Count 8.2th/mm3 (3.8-10.1) Red Blood Count 4.03mil/mm3 (3.90-5.20) Hemoglobin 11.1g/dL (12.0-15.6) Hematocrit 33.9% (35.0-46.0) Mean Corpuscular Volume 84.1fL (81-100) Mean Corpuscular Hemoglobin 27.5pg (27.0-35.0) Mean Corpuscular Hemoglobin Concent 32.7% (32.0-37.0) Red Cell Distribution Width 13.6% (12.3-15.4) Platelet Count 173bil/L (150-400) Neutrophils (%) (Auto) 42.3% (40-74) Lymphocytes (%) (Auto) 38.6% (14-46) Monocytes (%) (Auto) 12.0% (4-12) Eosinophils (%) (Auto) 5.8% (0-5) Basophils (%) (Auto) 1.2% (0-3) Sodium Level 135mEq/L (134-144) Potassium Level 3.9mEq/L (3.5-5.2) Chloride Level 101mEq/L (97-108) Carbon Dioxide Level 21mmol/L (18-29) Blood Urea Nitrogen 31mg/dL (8-27) Creatinine 1.03mg/dL (0.57-1.00) Estimat Glomerular Filtration Rate 73mL/min (>59) Glucose Level 175mg/dL (60-99) Calcium Level 8.6mg/dL (8.5-10.1) Total Bilirubin 0.7mg/dL (0.0-1.2) Aspartate Amino Transf (AST/SGOT) 14U/L (0-50) Alanine Aminotransferase (ALT/SGPT) 9U/L (0-32) Alkaline Phosphatase 81U/L (25-165) Total Protein 6.8g/dL (6.4-8.4) Albumin 3.7g/dL (3.4-5.0) Discharge Medications Discharge Medications Dorzolamide HCl/Timolol Maleat (Dorzolamide-Timolol Eye Drops) 10 Ml Drops 1 GTT BOTH_EYES BID Prescribed by: STORM SALGADO DO Labetalol (Labetalol) 100 Mg Tablet 100 MG PO BID Prescribed by: STORM SALGADO DO Levothyroxine (Synthroid) 75 Mcg Tablet 75 MCG PO DAILYAC Prescribed by: KYRA SWEET MD Losartan Potassium (Losartan Potassium) 50 Mg Tablet 50 MG PO DAILY (Reported) Pravastatin (Pravastatin) 20 Mg Tablet 20 MG PO HS (Reported) As needed Aspirin (Aspirin) 81 Mg Tablet 81 MG PO DAILY PRN PRN PAIN/FEVER (Reported) Additional med instructions Please continue to take all of your regular prescribed medications. I have discontinued your medication Coreg I have started you on a new medication called labetalol. Please take 100 mg of this medication by mouth 2 times per day in the morning and in the night Please continue to take your losartan as previously prescribed. This dose may need to be increased when he follow-up with your primary care physician this coming week. Quality Eng using google translate Por favor siga tomando todos los medicamentos regularmente prescritos. Yo he continuado frazier medicamento Coreg Yo empec en un nuevo medicamento llamado labetalol. Por favor tome 100 mg de arleen medicamento por va oral 2 veces al da por la maana y en la noche Por favor, siga tomando frazier losartan prescrito anteriormente. Esta dosis puede necesitar ser aumentado cuando se l seguimiento con frazier primario cuidado mdico esta semana. Traductor usando google translate Followup Plan Disposition: Discharged home in stable condition Follow-up plan Patient is discharged to home in stable condition, follow-up at the residency clinic within 1 week. Paciente es dado de zacarias a casa en condiciones estables, seguimiento en la cl bel residencia dentro de 1 semana. Discharge Diet: Heart Healthy Discharge Activity: Limited until seen by PCP Patient Instructions Please follow up at the residency clinic this coming week regarding this hospital administration and possible increase in your antihypertensive medications. Por favor, seguimiento en la clnica residencia esta semana que viene en relaci n con esta administracin del hospital y el posible aumento en joelle medicamentos antihipertensivos. Follow-up Provider: [facility] Follow-up with PCP in: 1 week Time spent 60 min Attending Statement Patient seen and examined with Dr Salgado on 01/31. She is stable for discharge on BID losartan and labetolol with close hypertension follow up. copies to: LES MOORE GILES A DO Jan 31, 2017 18:51 Alfa Acuna MD Jan 31, 2017 21:48
== END 2017-01-31 14:13 | disposition home or self-care (01) | DRG 305 ==
LOC: SED 17:18 → PCC 01-30 00:39 → CCU 01-30 01:27 → PCC 01-30 08:40
PROVIDERS: ADMIT Internal Medicine; ATTEND Hospitalist
DX: I16.1 Hypertensive emergency (principal); I31.3 Pericardial effusion (noninflammatory); I50.32 Chronic diastolic (congestive) heart failure; I15.8 Other secondary hypertension; E11.9 Type 2 diabetes mellitus without complications; E03.9 Hypothyroidism, unspecified; E78.5 Hyperlipidemia, unspecified; Z79.82 Long term (current) use of aspirin; Z88.0 Allergy status to penicillin; Z91.14 Patient's other noncompliance with medication regimen

== ENCOUNTER 2017-02-05 22:18 | Inpatient (IN) | payer MEDICARE, MEDICAID ==
[~2017-02-05] VITALS: Ht 139.7 cm; Wt 37.2 kg
[~2017-02-05 22:18] MED LIST changes: -CARV6.252 PO; -DOXY100T2 PO; -GUAI237L83 PO; -LATA2.5D6 BOTH_EYES; -METF500T4 PO; -PRE20 PO; -[UNRECOGNIZED DRUG - CODE]
[2017-02-05 22:21] VITALS: BP 193/82; PULSE 93; RESP 16; O2SAT 91
--- NOTE | 2017-02-05 22:51 | ED.REPORT ---
HPI-Fever Date of Service Feb 05, 2017 ED Provider: Donovan Alonso MD The pt is an 81 y/o female with a hx of CHF, diabetes,and hypertension who presents to the ED complaining of fever, onset a few hours ago. Associated sx include shaking, back pain and mild shortness of breath. She denies cough. The pt was admitted to the hospital a week ago for HTN and acute CHF. Nursing Notes Stated Complaint: HIGH BLOOD PRESSURE, SHAKING Chief Complaint: General Complaint Nursing Notes Reviewed: Yes Allergies: Coded Allergies: hydrochlorothiazide (Verified Allergy, Severe, LUPUS-LIKE SKIN ERUPTION, ) triamterene (Verified Allergy, Severe, LUPUS-LIKE SKIN ERUPTION, 01/30/17) WHEN GIVEN IN COMBO (HCTZ + TRIAMTERENE) Penicillins (Verified Allergy, Intermediate, Hives, 01/30/17) ciprofloxacin (Verified Allergy, Unknown, MD REQUESTED PT TO D/C - UNKNOWN WHY, 01/30/17) Scheduled Brimonidine Tartrate/Timolol (Combigan Eye Drops) 5 Ml Drops 5 ML AFFECT_EYE BID Dorzolamide HCl/Timolol Maleat (Dorzolamide-Timolol Eye Drops) 10 Ml Drops 1 GTT BOTH_EYES BID Labetalol (Labetalol) 100 Mg Tablet 100 MG PO BID Latanoprost (Latanoprost) 2.5 Ml Drops 1 GTT AFFECT_EYE HS Levothyroxine (Synthroid) 75 Mcg Tablet 75 MCG PO DAILYAC Losartan Potassium (Losartan Potassium) 50 Mg Tablet 50 MG PO DAILY Pravastatin (Pravastatin) 20 Mg Tablet 20 MG PO HS Scheduled PRN Aspirin (Aspirin) 81 Mg Tablet 81 MG PO DAILY PRN PRN PAIN/FEVER General Time Seen by MD: 22:49 Chief Complaint Fever currently Hx Obtained From: Patient Arrived By: Walk-in Onset Occurred: 1 - 4 hours ago Symptom Duration: Since onset Severity: Current: No pain currently Severity: Maximum: No pain Recent Healthcare: Recent doctor visit, Recent hospitalization Past Medical History Past Medical History Notes: Admitted August 27 of 09/01/2016 for sepsis, pneumonia, hypertensive urgency Past Medical History congestive heart failure, chronic 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 hypothyroidism carotid artery disease with stenosis prolonged QT with syncope h/o hyponatremia hx of pericardial effusion arthritis valvular heart disease Denies history of ME Reports: Diabetes mellitus, Hyperlipidemia, Hypertension Reports: Depression Past Surgical History None Smoking History Never Smoker Social History currently living with daughter Alcohol Use: Denies alcohol use Drug Use: Denies drug use Other Social History: Good social support, , Lives with children Ambulatory Status Wheelchair Review of Systems Constitutional: Reports: Fever Respiratory: Reports: Shortness of breath, Denies: Non-productive cough Neurologic: Reports: Shaking Complete sys rev & neg: except as marked. Musculoskeletal: Reports: Back pain Physical Exam Initial Vital Signs Vital Signs (First) Date Time Temp Pulse Resp B/P Pulse Ox O2 Delivery O2 Flow Rate FiO2 02/05/17 22:21 39.5 93 16 193/82 91 Room Air 02/06/17 00:33 2 Initial VS: Reviewed, Vital signs abnormal Head / Eyes: Atraumatic, Normocephalic Abdomen / GI: Soft, Non-tender, No guarding, No rebound, No distention Extremities: Vascular intact, Neuro intact, No swelling, No tenderness General/Constitutional: Awake, Alert, Cooperative Thin Neck: Atraumatic, Supple, Full range of motion Respiratory / Chest: Atraumatic, No rhonchi, No wheezing Rales / Rhonchi: Positive: Rales bilateral bases Cardiovascular: Heart rate NL, Regular rhythm, Heart sounds NL, No gallop, No murmurs, No rubs Skin: Atraumatic, Color NL, No rash, Warm, Dry Neurologic: Oriented X3, Speech NL, No motor deficits, No sensory deficits Interpretation & Diagnostics Lab Results Interpretation Result Diagram: 02/05/17 2313 02/05/17 2313 Test 02/05/17 23:13 02/05/17 23:27 02/06/17 00:00 White Blood Count 18.4th/mm3 (3.8-10.1) Red Blood Count 3.83mil/mm3 (3.90-5.20) Hemoglobin 10.9g/dL (12.0-15.6) Hematocrit 32.7% (35.0-46.0) Mean Corpuscular Volume 85.4fL (81-100) Mean Corpuscular Hemoglobin 28.5pg (27.0-35.0) Mean Corpuscular Hemoglobin Concent 33.3% (32.0-37.0) Red Cell Distribution Width 13.8% (12.3-15.4) Platelet Count 165bil/L (150-400) Neutrophils (%) (Auto) 81.2% (40-74) Lymphocytes (%) (Auto) 11.8% (14-46) Monocytes (%) (Auto) 4.2% (4-12) Eosinophils (%) (Auto) 2.1% (0-5) Basophils (%) (Auto) 0.5% (0-3) Sodium Level 135mEq/L (134-144) Potassium Level 4.3mEq/L (3.5-5.2) Chloride Level 102mEq/L (97-108) Carbon Dioxide Level 20mmol/L (18-29) Blood Urea Nitrogen 25mg/dL (8-27) Creatinine 0.77mg/dL (0.57-1.00) Estimat Glomerular Filtration Rate 103mL/min (>59) Glucose Level 149mg/dL (60-99) Calcium Level 8.9mg/dL (8.5-10.1) Total Bilirubin 0.6mg/dL (0.0-1.2) Aspartate Amino Transf (AST/SGOT) 20U/L (0-50) Alanine Aminotransferase (ALT/SGPT) 13U/L (0-32) Alkaline Phosphatase 83U/L (25-165) Total Protein 7.8g/dL (6.4-8.4) Albumin 4.3g/dL (3.4-5.0) Hold Moser Top Tube Received (Received) Urine Color Straw (YELLOW) Urine Appearance Clear (CLEAR,HAZY) Urine pH 6.5 (5.0-8.0) Urine Specific [place] 1.011 (1.003-1.035) Urine Protein Negativemg/dL (NEG,TRACE) Urine Glucose (UA) Negativemg/dL (NEGATIVE) Urine Ketones Negativemg/dL (NEGATIVE) Urine Occult Blood Negative (NEGATIVE) Urine Nitrite Negative (NEGATIVE) Urine Bilirubin Negative (NEGATIVE) Urine Urobilinogen Normalmg/dL (NORMAL) Urine Leukocyte Esterase Negative (NEGATIVE) Urine RBC 0-2/hpf (0-2) Urine WBC 0-5/hpf (0-5) Urine Epithelial Cells Occasional/hpf (NONE-MOD) Urine Crystals None seen (NONE SEEN) Urine Bacteria None/hpf (NONE-FEW) Urine Hyaline Casts None/lpf (NONE) Urine Granular Casts None seen (NONE SEEN) Urine Waxy Casts None seen (NONE SEEN) Urine Red Blood Cell Casts None seen (NONE SEEN) Urine White Blood Cell Casts None seen (NONE SEEN) Urine Mucus None seen (None Seen) Urine Trichomonas None seen (NONE SEEN) Urine Yeast None (NONE SEEN) Urinalysis Comment None Urine Culture Reflexed Not indicated Procalcitonin 0.08ng/mL (0.00-0.08) Lab Results Interpretation: Elevated white count, normal lactic acid, normal urine ECG Interpretation ECG Interpretation: Normal sinus rhythm. Rate 96. Left ventricular hypertrophy Bordernline T abnormalities, diffuse leads Anterior ST elevation, probably due to LVH, less prominent than previous ECG. Time: 22:46 Interpreted by: ED physician X-Ray Chest Interpretation Chest Xray Interpretation: Pneumonia View: Portable, 1 view Interpretation / Wet Read by: Wet read ED physician Re-Eval/Medical Decision Med Decision/Clinical Course 81-year-old female with a history of recent hospitalization for pneumonia presents with recurrent symptoms and fever. She is mildly tachycardic but not hypotensive. She has an elevated white count, but normal lactic acid. She has bilateral lower lobe infiltrates, meeting criteria for hospital associated pneumonia. She was cultured and given fluids. Because of her multiple allergies she was given vancomycin and cefepime as initial treatment. She will be admitted to the hospitalist service for further evaluation and treatment. Re-Evaluation/Progress : Time of Eval: 23:40 Re-Evaluation/Progress Note: Rechecked pt. Discussed lab results, imaging results,diagnosis and plan to admit. Pt understands and agrees with the plan for admission. All questions addressed. Consultation : Referral / Consult Name: Evie Winn DO Consulted With: Hospitalist Call Returned at: 23:53 Wire Stitcher: Will see patient, Agrees with eval, Agrees with plan, Accepts admit Counseled Regarding: Diagnosis, Lab results, Need for admission Discharge & Departure Impression: Primary Impression: Pneumonia Pneumonia type: due to unspecified organism Laterality: bilateral Lung location: lower lobe of lung Qualified Code: J18.9 - Pneumonia, unspecified organism Disposition: ADMITTED TO HOSPITAL Referrals: Bessie Valdivia DO (PCP) Scribe Attestation Portions of this note were transcribed by Melanie Gabriel. I,, personally performed the history,physical exam and medical decision-making;I reviewed and confirmed the accuracy of the information in the transcribed note. Signed by Rayray Garcia. 02/06/17 copies to: Bessie Valdivia Howard L MD Feb 05, 2017 22:51 Melanie Gabriel Feb 05, 2017 23:42
[2017-02-05] MEDS ORDERED: 0.9% Sodium Chloride 1,000 ML IV ONE (22:52)
[2017-02-05 23:22] LABS: BASOPHILS % (AUTO) 0.5 % (0-3); EOSINOPHILS % (AUTO) 2.1 % (0-5); MONOCYTES % (AUTO) 4.2 % (4-12); Mean Corpuscular Hemoglobin 28.5 pg (27.0-35.0); Mean Corpuscular Volume 85.4 fL (81-100); NEUTROPHILS % (AUTO) 81.2 % (40-74); Platelet Count 165 bil/L (150-400)
[2017-02-05] MEDS ORDERED: Vancomycin Dose per Pharmacist XX ONE (23:35)
[2017-02-05] MEDS ORDERED: Vancomycin Inj 750 MG in 0.9% Sodium Chloride 250 ML IV ONE (23:45)
[2017-02-05 23:50] LABS: APPEARANCE,URINE CLEAR (CLEAR,HAZY); COLOR,URINE STRAW (YELLOW); OCCULT BLOOD,URINE NEGATIVE (NEGATIVE); PH,URINE 6.5 (5.0-8.0); UROBILINOGEN,URINE NORMAL (NORMAL)
[2017-02-06] VITALS (21 sets, daily range): BP systolic 124–229; BP diastolic 48–86; PULSE 68–94; RESP 16–20; O2SAT 93–99
[2017-02-06] MEDS ORDERED: Cefepime Inj 2,000 MG in Dextrose 5% Minibag Plus 100 ML IV ONE ×2
[2017-02-06] MEDS ORDERED: LATA2.5D6 AFFECT_EYE (00:45)
[2017-02-06] MEDS ORDERED: BRIM5DRO AFFECT_EYE (00:45)
[2017-02-06] MEDS ORDERED: Dextrose 5% 0.45% NaCl 1,000 ML IV SCH (01:25)
[2017-02-06] MEDS ORDERED: Alum-Mag Hydrox-Simeth 30 mL Suspension PO PRN (01:25)
[2017-02-06] MEDS ORDERED: Polyethylene Glycol (PEG) 17 Gm Powder PO PRN (01:35)
[2017-02-06] MEDS: 0.9% Sodium Chloride 1,000 ML IV SCH ×2 (02:05→11:31)
--- NOTE | 2017-02-06 02:31 | PCM.HPMED ---
Subjective Date of Service Feb 06, 2017 Primary Provider: Admitting Physician: Evie Winn DO Primary Care Physician: Bessie Valdivia DO Attending Physician: Evie Winn DO Admit Status: From the Emergency Department Chief Complaint: Fever and chills History of Present Illness: Patient is an 81-year-old female with a history of CHF, diabetes, and hypertension who presented to the emergency department complaining of fever with chills. Patient is a Portuguese-speaking only patient; history was obtained via body engineer (body engineer number [id number]). Patient was a poor historian with multiple conflicting answers, even when clarified with the body engineer. Patient presented today feeling as if she has fever and chills. Symptoms started today. She has a recent hospital admission for CHF exacerbation, discharged 01/31/2017. Patient admits to some difficulty breathing earlier today which has resolved She denies any other symptoms such as cough, headache, nausea, vomiting, constipation, diarrhea, dysuria, chest pain. Review of Systems: Complete ROS was performed and pertinent positives and negatives included in the history of present illness. All other findings were negative. Allergies Coded Allergies: hydrochlorothiazide (Verified Allergy, Severe, LUPUS-LIKE SKIN ERUPTION, ) triamterene (Verified Allergy, Severe, LUPUS-LIKE SKIN ERUPTION, 01/30/17) WHEN GIVEN IN COMBO (HCTZ + TRIAMTERENE) Penicillins (Verified Allergy, Intermediate, Hives, 01/30/17) ciprofloxacin (Verified Allergy, Unknown, MD REQUESTED PT TO D/C - UNKNOWN WHY, 01/30/17) Home Medications Dorzolamide HCl/Timolol Maleat (Dorzolamide-Timolol Eye Drops) 10 Ml Drops 1 GTT BOTH_EYES BID Labetalol (Labetalol) 100 Mg Tablet 100 MG PO BID Levothyroxine (Synthroid) 75 Mcg Tablet 75 MCG PO DAILYAC Losartan Potassium (Losartan Potassium) 50 Mg Tablet 50 MG PO DAILY Pravastatin (Pravastatin) 20 Mg Tablet 20 MG PO HS Aspirin (Aspirin) 81 Mg Tablet 81 MG PO DAILY PRN PRN PAIN/FEVER PMH congestive heart failure, chronic 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 hypothyroidism carotid artery disease with stenosis prolonged QT with syncope h/o hyponatremia hx of pericardial effusion arthritis valvular heart disease Denies history of MT Reports: Diabetes mellitus, Hyperlipidemia, Hypertension Reports: Depression Surgical History None Family History Family history unknown Social History Hx Alcohol Use: No Hx Substance Use: No Hx Tobacco Use: No Smoking Status: Never Smoker Living Arrangement: with Family (with son) Exam Vital Signs Vital Sign - Last Date Time Temp Pulse Resp B/P Pulse Ox O2 Delivery O2 Flow Rate FiO2 02/06/17 01:59 89 02/06/17 01:52 37.6 16 125/66 97 Nasal Cannula 2.00 Intake and Output 02/05/17 02/05/17 02/06/17 Cumulative From/Thru 15:00 23:00 07:00 02/05/17 22:21 - 02/06/17 01:53 Intake Total 1000 ml 1000 ml Balance 1000 ml 1000 ml Intake IV Total 1000 ml 1000 ml Exam General: Nondistressed, thin female HEENT: NC/, PERRLA, EOM intact. Nontender sinuses, no nasal discharge. No thyromegaly appreciated CV: Regular rate and rhythm, 3/6 holosystolic murmur RESP: Few inspiratory wheezes on right, crackles bases of left lung ABD: Bowel sounds normal, nondistended, no tenderness to palpation EXT: Trace edema bilateral ankle LYMPH: No cervical lymphadenopathy NEURO: Symmetric face, cranial nerves grossly intact, strength intact bilaterally upper and lower extremities, sensation to light touch intact bilaterally upper and lower extremities. PSYCH: Oriented 4. Linear and appropriate conversation. Skin: No rashes or ecchymosis appreciated. Lab and Diagnostics Result Diagram: 02/05/17231202/05/172312 Assessment & Plan Patient is an 81-year-old female presenting with fever and chills. She has a history significant for recent hospitalization for CHF exacerbation. Patient has diabetes and hypertension. 1. Hospital-acquired pneumonia, present upon admission and ongoing - Reported shortness of breath, wheezing, crackles, fever, and chest x-ray suggestive of bilateral pneumonia - Leukocytosis of 18.4 - Recent hospitalization with discharge date of 01/30/2017 is suggestive of hospital-acquired - Patient received cefepime and vancomycin in the emergency department along with 1 L of fluid - Vancomycin to be dosed by pharmacist tomorrow - 2 mg cefepime IV every 8 hours - Blood cultures pending - Sputum cultures ordered -Viral PCR pending 2. CHF, present upon admission and ongoing - Patient has known history of CHF. -Monitor fluid status regularly 3. Hypothyroidism - Patient has history of hypothyroidism -Continue home medications -Check TSH Patient has been admitted to inpatient, I expect this patient is being here for greater than 2 midnights. Pain Evaluation: Adequate Pain Control GI Prophylaxis: Not indicated VTE Prophylaxis: Sub-Q Heparin (Unfractionated), SCDs Resuscitation Status: CPR: Attempt Resuscitation Attending Statement The patient was seen and examined together with house staff on 02/06/2017 and I agree with the history, exam and plan as outlined in the note above. Opal Santos DO Feb 06, 2017 02:31 Evie Winn DO Feb 06, 2017 06:43
--- NOTE | 2017-02-06 02:45 | NUR ---
Admit Patient admitted to room 3015 at 0145 from ED. Conservation Worker on stick used for admission assessment. Patient denies pain, telemetry connected. IV antibiotics given as ordered. Oriented to call light, room, plan of care, intentional rounding and using call light before getting up. Patient reports she uses walker at baseline. On droplet precautions. Bed alarm on for safety. Call light within reach, intentional rounding to be done.
[2017-02-06] MEDS: Albuterol-Ipratropium 3 mL Inhalation Solution NEB PRN ×2 (05:23→20:16)
--- NOTE | 2017-02-06 08:08 | DRSVH ---
PROCEDURE: X-RAY CHEST ONE VIEW, PORTABLE ([id number]) INDICATIONS: FEVER TECHNIQUE: One view of the chest was acquired. COMPARISON: [facility], CR, XR CHEST 1VW (PORTABLE), 01/30/2017, 18:00. FINDINGS: Surgical changes and devices: None. Lungs and pleura: No pleural effusions or pneumothorax. Mild cephalization of pulmonary vasculature. Interstitial prominence noted. Patchy opacities in the lung bases bilaterally superimposed upon inte rstitial prominence Mediastinum: Mediastinal contours appear normal. Heart size is enlarged. Bones and chest wall: No suspicious bony lesions. Overlying soft tissues appear unremarkable. IMPRESSION: 1. Probable CHF. 2. Bibasilar lung opacities consistent with atelectasis versus pneumonia. Please correlate with clini jacklyn and laboratory data. Dictated by: Lexi Villavicencio MD, PhD on 02/06/2017 at 8:04 Approved by: Lexi Villavicencio MD, PhD on 02/06/2017 at 8:06
[2017-02-06] MEDS ORDERED: Heparin 5,000 Unit/mL Inj SUBQ SCH (08:30)
[2017-02-06] MEDS: Cefepime Inj 2,000 MG in Dextrose 5% Minibag Plus 100 ML IV SCH ×2 (08:41→17:48)
[2017-02-06 10:24] LABS: BASOPHILS % (AUTO) 0.6 % (0-3); EOSINOPHILS % (AUTO) 1.5 % (0-5); MONOCYTES % (AUTO) 6.5 % (4-12); Mean Corpuscular Hemoglobin 27.7 pg (27.0-35.0); Mean Corpuscular Volume 86.5 fL (81-100); NEUTROPHILS % (AUTO) 77.6 % (40-74); Platelet Count 133 bil/L (150-400)
[2017-02-06] MEDS ORDERED: Glucose 40% Oral Gel 15 Gm Tube PO PRN (13:10)
[2017-02-06] MEDS ORDERED: Dextrose 10% 250 ML IV PRN (13:35)
[2017-02-06] MEDS ORDERED: Alum-Mag Hydrox-Simeth 30 mL Suspension PO ONE (14:40)
[2017-02-06] MEDS ORDERED: Nitroglycerin 2% 1 Gm Ointment TOPICAL ONE (14:45)
[2017-02-06] MEDS ORDERED: Furosemide 10 mg/mL 2 mL Inj IVPUSH ONE (14:45)
--- NOTE | 2017-02-06 14:52 | PCM.PNMED ---
Subjective Date of Service Feb 06, 2017 Subjective She is having some neck pain and left posterior chest pain. It is pleuritic. Some dyspepsia. Some dyspnea. No nausea or emesis. No diaphoresis. No abdomen pain. No leg edema. Complaints began as MD entered room (around 2:00pm) No overnight events noted. Exam Vital Signs Vital Sign - Last Date Time Temp Pulse Resp B/P Pulse Ox O2 Delivery O2 Flow Rate FiO2 02/06/17 10:05 68 02/06/17 09:39 36.8 20 130/76 95 Room Air 02/06/17 05:24 2.00 Intake and Output 02/05/17 02/05/17 02/06/17 Cumulative From/Thru 15:00 23:00 07:00 02/05/17 22:21 - 02/06/17 05:18 Intake Total 1100 ml 1100 ml Output Total 300 ml 300 ml Balance 800 ml 800 ml Intake Oral 100 ml 100 ml IV Total 1000 ml 1000 ml Output Urine Total 300 ml 300 ml # Bowel Movements 0 0 Exam Alert and oriented. Fluent speech Anocteric sclera. Lungs clear except anterior wheezing right lung heart regular and without murmur. Abdomen soft, non tender No leg edema. IVs and Medications Medications Reviewed: Medications were reviewed in detail Lab and Diagnostics Result Diagram: 02/06/1753902/06/1740 Assessment & Plan Patient is an 81-year-old female presenting with fever and chills. She has a history significant for recent hospitalization for CHF exacerbation. Patient has diabetes and hypertension. #. Chest pain, new and active. Some neck pain, no H/O [place] or CAD. Equivocal ECG for mild ST elevations in V1- V3. Called Dr Gail thurman starting cardiac meds including heparin and ASA and metoprolol IV. He felt no STEMI. Will treat medically and follow enzymes. #. Hospital-acquired pneumonia, present upon admission and active. - Reported shortness of breath, wheezing, crackles, fever, and chest x-ray suggestive of bilateral pneumonia - Leukocytosis of 18.4, stable. - Recent hospitalization with discharge date of 01/30/2017 is suggestive of hospital-acquired - Patient received cefepime and vancomycin in the emergency department along with 1 L of fluid - Vancomycin to be dosed by pharmacist tomorrow, stop after one dose. Nares swab. - 2 mg cefepime IV every 8 hours - Blood cultures pending - Sputum cultures ordered and pending. -Viral PCR negative #. Pleuritic chest pain, new and active. . -EKG, trop, morphine, lasix and nitro. Consider CT angio to rule out PE. #. Acute on chronic diastolic CHF, present upon admission and ongoing - Patient has known history of CHF. -Monitor fluid status regularly, stop IVF and lasix 20 mg IV once. #. Hypothyroidism, present on admission and stable. - Patient has history of hypothyroidism -Continue home medications -Check TSH Patient has been admitted to inpatient, I expect this patient is being here for greater than 2 midnights. GI Prophylaxis: Not indicated VTE Prophylaxis: Sub-Q Heparin (Unfractionated), SCDs Resuscitation Status: CPR: Attempt Resuscitation Alfa Acuna MD Feb 06, 2017 14:52
[2017-02-06] MEDS ORDERED: Heparin 5,000 Unit/mL Inj IVPUSH PRN (16:10)
[2017-02-06] MEDS ORDERED: Heparin 25K Unit/500mL 0.45 NS 25,000 UNIT in IV Premix 1 EACH IV SCH (16:10)
--- NOTE | 2017-02-06 16:23 | NUR ---
Social Work: Initial Assessment/multidisciplinary rounds: Data: See initial assessment. Patient is an 81 year old female who was admitted on 02/06/17 for pneumonia per H&P. EMR reviewed. Pt is a readmission just discharge home no needs. SW met with pt to discuss discharge planning, SW role explained. Pt informed SW that she lives in [facility] with her son Narciso where she remains independent with basic ADLS. Pt uses a cane and does not drive.Pt has HH history, but has never been to SNF. Pt has no [facility]ci care insurance or VA benefits. Pt states she has completed DPOA/ advanced directive, SW encouraged a copy to be brought in. No concerns noted in morning rounds regarding pt's capacity for self care from RN or MD. Discharge planning checklist provided, SW encouraged pt to call with any questions, phone number on white board in room. Pt's family to provide transport home. No MD order received. No anticipated discharge needs. SW will continue to follow if needs arise. Assessment: Pt who is independent at baseline. Plan: Pt to discharge home with son when medically stable via POV. No anticipated discharge needs. SW will continue to follow if needs arise. HARVINDER Lanza Addendum: 02/06/17 at 1627 by ALANA LUNSFORD Amended: Links added.
--- NOTE | 2017-02-06 16:40 | DRSVH ---
PROCEDURE: X-RAY CHEST ONE VIEW ([id number]) INDICATIONS: chest pain TECHNIQUE: One view of the chest was acquired. COMPARISON: 02/05/2017 FINDINGS: Surgical changes and devices: None. Lungs and pleura: No pleural effusions or pneumothorax. Scattered bibasilar opacities show some inte rval improvement. Septal lines are less evident suggesting resolving pulmonary edema. Calcified granu marita left upper lobe. Mediastinum: Mediastinal contours appear normal. Heart size is enlarged. Bones and chest wall: No suspicious bony lesions. Overlying soft tissues appear unremarkable. IMPRESSION: 1. Interval improvement in congestive heart failure. 2. Patchy bibasilar opacities remain, possibility of superimposed or underlying pneumonia. Dictated by: Robin Wells M.D. on 02/06/2017 at 16:37 Approved by: Robin Wells M.D. on 02/06/2017 at 16:38
[2017-02-06] MEDS: MeTOProlol 1 mg/mL 5 mL Inj IVPUSH SCH ×3 (16:44→17:39)
[2017-02-06] MEDS: Insulin LISPRO 300 Unit/3 mL Inj SUBQ SCH ×2 (17:30→21:15)
--- NOTE | 2017-02-06 19:54 | NUR ---
Neck/upper back/flank Pain + HEPARIN Pt denied pain in AM, but later in shift around 1400 pt reported having increased pain of 8/10. Pt sitting forward, uncomfortable, stating that pain is worse with breathing. Underwriter called, paged. BP at 229/72, TELE: STach 101, O2 2L @ 92% Increased O2 for discomfort to 3L, bed in upright position. Pt reports pain increasing to 10/10. STAT EKG ordered. MD in to review and speak with pt. IV morphine, Maalox, Lasix, Nitro paste ordered and administered. Pt reports pain is reduced to 8/10 but still very uncomfortable. Pt little light headed, started to fall over but caught. Assisted to BSC with close attention. Repeat EKG ordered, cardiology up to review. XRay obtained in room. IV metoprolol ordered and administered. BP gradually reduced to 155/65. HR in 70-80s. Pt reports reduced pain as low as 3/10. New orders for Heparin Cardiac placed. Started at 1745 with initial PTT taken, first PTT 34.8. Repeat APTT ordered Q6. Heparin started at 600U/HR (12ML/HR). IV compatibility confirmed with ABX by pharmacy. Pt and family educated of plan of care.
[2017-02-06] MEDS: Insulin GLARgine 100 Unit/mL Syringe SUBQ SCH (20:08)
[2017-02-07] VITALS (11 sets, daily range): BP systolic 107–195; BP diastolic 53–78; PULSE 64–82; RESP 16–20; O2SAT 91–99
[2017-02-07] MEDS: Cefepime Inj 2,000 MG in Dextrose 5% Minibag Plus 100 ML IV SCH ×3 (00:43→16:52)
[2017-02-07 07:02] LABS: TROPONIN T 0.01 ug/L (0.0-0.011)
[2017-02-07] MEDS ORDERED: Furosemide 10 mg/mL 2 mL Inj IVPUSH ONE (07:20)
[2017-02-07] MEDS: Insulin LISPRO 300 Unit/3 mL Inj SUBQ SCH ×4 (08:00→21:24)
--- NOTE | 2017-02-07 09:15 | NUR ---
Heparin drip Dc'd heparin drip per MD orders.
[2017-02-07] MEDS ORDERED: TIMOLOL AFFECT_EYE SCH (09:35)
[2017-02-07] MEDS ORDERED: BRIMONIDINE TARTRATE AFFECT_EYE SCH (09:35)
[2017-02-07] MEDS: Brimonidine 0.2% 5 mL Ophthalmic Solution BOTH_EYES SCH ×2 (13:42→21:23)
[2017-02-07] MEDS: Dorzolamide 2% 10 mL Ophthalmic Solution BOTH_EYES SCH ×2 (13:42→21:23)
[2017-02-07] MEDS: Timolol 0.5% 5 mL Ophthalmic Solution BOTH_EYES SCH ×2 (13:43→21:22)
--- NOTE | 2017-02-07 14:30 | PCM.PNMED ---
Subjective Date of Service Feb 07, 2017 Subjective She is doing better today. Less pain. In fact no neck pain and minimal pleuritic left-sided pain. Yesterday she had equivocal ST changes in her anterior leads but was seen by cardiology and felt this was not an ST elevation event. She was treated with heparin overnight and this was stopped this morning. She was given Plavix and aspirin but will just be kept on aspirin today. She has no known history of CAD or [place]. She is being treated for possible pneumonia. She denies fevers or chills. No shortness of breath. No overnight events Exam Vital Signs Vital Sign - Last Date Time Temp Pulse Resp B/P Pulse Ox O2 Delivery O2 Flow Rate FiO2 02/07/17 12:14 36.8 82 17 185/75 95 Nasal Cannula 3.00 Intake and Output 02/06/17 02/06/17 02/07/17 Cumulative From/Thru 15:00 23:00 07:00 02/05/17 22:21 - 02/07/17 06:13 Intake Total 336 ml 552 ml 1988 ml Output Total 1100 ml 850 ml 2250 ml Balance -764 ml -298 ml -262 ml Intake Oral 336 ml 300 ml 736 ml IV Total 252 ml 1252 ml Output Urine Total 1100 ml 850 ml 2250 ml # Voids 1 1 # Bowel Movements 0 0 Exam Alert and oriented -3, no distress. Fluent speech Anicteric sclera. Lungs are clear with normal rate and effort exception does have focal rales in the right upper anterior and posterior lung. Heart is regular without murmur gallop or rub Abdomen soft nontender, flat Extremities are free of edema. Skin is free of rash or lesions. IVs and Medications Medications Reviewed: Medications were reviewed in detail Lab and Diagnostics Result Diagram: 02/07/17 0511 02/06/17 0540 Assessment & Plan Patient is an 81-year-old female presenting with fever and chills. She has a history significant for recent hospitalization for CHF exacerbation. Patient has diabetes and hypertension. #. Chest pain, new and active. Some neck pain, no H/O [place] or CAD. Equivocal ECG for mild ST elevations in V1- V3. Called Dr Gail thurman starting cardiac meds including heparin and ASA and metoprolol IV. He felt no STEMI. Will treat medically and follow enzymes. #. Hospital-acquired pneumonia, present upon admission and active. - Reported shortness of breath, wheezing, crackles, fever, and chest x-ray suggestive of bilateral pneumonia - Leukocytosis of 18.4, stable. - Recent hospitalization with discharge date of 01/30/2017 is suggestive of hospital-acquired - Patient received cefepime and vancomycin in the emergency department along with 1 L of fluid - Vancomycin to be dosed by pharmacist tomorrow, stop after one dose. Nares swab. - 2 mg cefepime IV every 8 hours - Blood cultures pending - Sputum cultures ordered and pending. -Viral PCR negative, nares MRSA negative. Continue empiric antibiotics and follow. Her pro-calcitonin was over 3. #. Pleuritic chest pain, new and active, but improving. -EKG, trop, morphine, lasix and nitro. Consider CT angio to rule out PE. The pain did not correlate to the rails on her right lung. It is unclear what the etiology of her pain was. Stop the heparin and Plavix at this point. Continue to treat her for pneumonia and follow clinically. She has any further left-sided pain or neck pain might consider a stress test. #. Acute on chronic diastolic CHF, present upon admission and improved - Patient has known history of CHF. -Monitor fluid status regularly, stop IVF and lasix 20 mg IV once. #. Hypothyroidism, present on admission and stable. - Patient has history of hypothyroidism -Continue home medications -Check TSH Patient has been admitted to inpatient, I expect this patient is being here for greater than 2 midnights. GI Prophylaxis: Not indicated VTE Prophylaxis: Sub-Q Heparin (Unfractionated), SCDs Resuscitation Status: CPR: Attempt Resuscitation Alfa Acuna MD Feb 07, 2017 14:30
[2017-02-07 14:54] LABS: Mean Corpuscular Hemoglobin 28.3 pg (27.0-35.0); Mean Corpuscular Volume 83.2 fL (81-100)
--- NOTE | 2017-02-07 17:18 | NUR ---
shift note Patient stated that she felt much better than yesterday but was still weak. Denied chest pain but stated that she had intermittent back pain that would last for a couple of minutes and did not want pain RX. Pt sat up for meals. Denied and SOB or CABELLO or cough. Coarse bilateral lower sounds. Encouraged deep breathing and coughing. Pt uses home oxygen but did not know how much. Family or biochemistry technologist at bedside
[2017-02-07] MEDS: Ondansetron 2 mg/mL 2 mL Inj IVPUSH PRN ×2 (21:15→23:57)
[2017-02-07] MEDS: Heparin 5,000 Unit/mL Inj SUBQ SCH (21:18)
[2017-02-07] MEDS: Insulin GLARgine 100 Unit/mL Syringe SUBQ SCH (21:22)
[2017-02-08] VITALS (12 sets, daily range): BP systolic 153–228; BP diastolic 56–92; PULSE 50–73; RESP 18–20; O2SAT 91–100
[2017-02-08] MEDS: Cefepime Inj 2,000 MG in Dextrose 5% Minibag Plus 100 ML IV SCH ×3 (00:45→16:29)
--- NOTE | 2017-02-08 02:22 | NUR ---
Abdominal Pain / Nausea / HTN @21:15 patient c/o nausea and not feeling well. Admin 4mg zofran and 975mg Tylenol. @22:00 patient became hot and lightheaded after visit to bathroom, provided cold washcloth and sat upright, then provided icepack and brought in computer applications developer on a stick after family left. Able to determine patient was feeling nauseous all day, after breakfast then more so after lunch finally resulting in emesis of breakfast and lunch. Family was aware and unable to convince patient to eat dinner but staff was not notified of symptoms. @23:57 still nauseous and admin 4mg zofran and through mechanic recovery determined stomach pain was 5/10 and Tylenol not effective. @00:00 admin 2mg IV Morphine and per patient request attempted to call gladis Stuart for her, though his phone doesn't have voicemail setup and I was unable to leave a message. Tried calling again without success. Kept mechanic recovery connected to determine if patients needs were being met, able to convince to eat peanut butter, some crackers applesauce and 150cc water. Pain and nausea resolved. BP elevated @ 22:20 = 176/66 notified MD JUAREZ HTN meds just given and advised to monitor. BP trended down @ 23:44 161/66 Patient resting quietly, call light in reach.
--- NOTE | 2017-02-08 04:27 | NUR ---
Elevated BP's / Emesis BP taken during emesis episode 224/88, 5 minutes after dropped to 190/82. 30 minutes later = 174/72. Vacuum Cleaner Operator brought in, patient feels much better after emesis and declines zofran/pain meds.
[2017-02-08] MEDS: Insulin LISPRO 300 Unit/3 mL Inj SUBQ SCH ×4 (07:31→22:00)
[2017-02-08] MEDS: Ondansetron 2 mg/mL 2 mL Inj IVPUSH PRN ×2 (07:41→20:59)
[2017-02-08] MEDS: Timolol 0.5% 5 mL Ophthalmic Solution BOTH_EYES SCH ×2 (09:04→20:42)
[2017-02-08] MEDS: Dorzolamide 2% 10 mL Ophthalmic Solution BOTH_EYES SCH ×2 (09:04→20:30)
[2017-02-08] MEDS: Brimonidine 0.2% 5 mL Ophthalmic Solution BOTH_EYES SCH ×2 (09:04→20:30)
[2017-02-08] MEDS: Heparin 5,000 Unit/mL Inj SUBQ SCH ×2 (09:05→20:42)
--- NOTE | 2017-02-08 09:24 | PCM.PNMED ---
Subjective Date of Service Feb 08, 2017 Subjective Patient seen and examined. She is complaining of epigastric pain, banding around her back. She has been nauseated. Vitals noted. Exam Vital Signs Vital Sign - Last Date Time Temp Pulse Resp B/P Pulse Ox O2 Delivery O2 Flow Rate FiO2 02/08/17 08:00 62 02/08/17 04:34 174/72 02/08/17 03:50 36.4 20 100 Nasal Cannula 3.00 Intake and Output 02/07/17 02/07/17 02/08/17 Cumulative From/Thru 15:00 23:00 07:00 02/05/17 22:21 - 02/08/17 05:06 Intake Total 986 ml 2974 ml Output Total 2250 ml Balance 986 ml 724 ml Intake Oral 786 ml 1522 ml IV Total 200 ml 1452 ml Output Urine Total 2250 ml # Voids 4 5 # Bowel Movements 0 0 Exam General: Mild to moderate distressed, thin female CV: Regular rate and rhythm, 3/6 holosystolic murmur RESP: Few inspiratory wheezes on right, crackles bases of left lung ABD: Tender to palpation in epigastric area NEURO: Symmetric face, cranial nerves grossly intact, strength intact bilaterally upper and lower extremities, sensation to light touch intact bilaterally upper and lower extremities. PSYCH: Oriented 4. Linear and appropriate conversation. Skin: No rashes or ecchymosis appreciated. Lab and Diagnostics Result Diagram: 02/07/17 1441 02/07/17 1441 Assessment & Plan Patient is an 81-year-old female presenting with fever and chills. She has a history significant for recent hospitalization for CHF exacerbation. Patient has diabetes and hypertension. #. Chest/abdominal pain - Some neck pain on admissoin, no H/O [place] or CAD. Equivocal ECG for mild ST elevations in V1-V3. Called Dr Gail thurman starting cardiac meds including heparin and ASA and metoprolol IV. He felt no STEMI. Will treat medically and follow enzymes. - today patient complained of abdominal pain, epigastric mostly, will do work up and get abdominal us #. Hospital-acquired pneumonia, present upon admission and active. - Reported shortness of breath, wheezing, crackles, fever, and chest x-ray suggestive of bilateral pneumonia - Leukocytosis of 18.4, trended down to be normal - Recent hospitalization with discharge date of 01/30/2017 is suggestive of hospital-acquired - Patient received cefepime and vancomycin in the emergency department along with 1 L of fluid - Vancomycin to be dosed by pharmacist tomorrow, stop after one dose. Nares swab. - 2 mg cefepime IV every 8 hours - Blood cultures pending - Sputum cultures ordered and pending. -Viral PCR negative, nares MRSA negative. - continue cefepime, trend procalcitonin #. Pleuritic chest pain, new and active, improving -EKG, trop, morphine, lasix and nitro. - The pain did not correlate to the rails on her right lung. It is unclear what the etiology of her pain was. Stop the heparin and Plavix at this point. Continue to treat her for pneumonia and follow clinically. She has any further left-sided pain or neck pain might consider a stress test. #. Acute on chronic diastolic CHF, present upon admission and improved - Patient has known history of CHF. -Monitor fluid status regularly, stop IVF and lasix 20 mg IV once given #. Hypothyroidism, present on admission and stable. - Patient has history of hypothyroidism -Continue home medications -TSH low, will get T4 levels Patient has been admitted to inpatient, I expect this patient is being here for greater than 2 midnights. Pain Evaluation: Adequate Pain Control GI Prophylaxis: Not indicated VTE Prophylaxis: Sub-Q Heparin (Unfractionated), SCDs Resuscitation Status: CPR: Attempt Resuscitation Time spent 35 mins Spencer Mckeon MD Feb 08, 2017 09:24
[2017-02-08] MEDS ORDERED: Famotidine Inj 20 MG in IV Premix 1 EACH IV SCH ×2 (09:27→12:00)
[2017-02-08 09:42] LABS: BASOPHILS % (AUTO) 0.6 % (0-3); EOSINOPHILS % (AUTO) 12.6 % (0-5); MONOCYTES % (AUTO) 11.6 % (4-12); Mean Corpuscular Hemoglobin 28.2 pg (27.0-35.0); Mean Corpuscular Volume 83.5 fL (81-100); NEUTROPHILS % (AUTO) 52.7 % (40-74); Platelet Count 150 bil/L (150-400)
[2017-02-08 09:57] LABS: INR 1.14 ratio
--- NOTE | 2017-02-08 11:03 | NUR ---
To US abdomen pt alert and oriented. order for abdominal ultrasound for epigastric pain. pt transported via wheelchair with O2, and IVF infusing. departed unit approximately 1005. diesel lube tech informed. Addendum: 02/08/17 at 1113 by ARAM LEDEZMA RN return to rm 3015 at 1106. pt with nausea and vomitting. pt assisted back to bed with 2pa d/t weakness. chief medical technologist informed.
[2017-02-08] MEDS ORDERED: Dextrose 5% 0.9% NaCl 1,000 ML IV SCH (12:15)
--- NOTE | 2017-02-08 13:04 | DRSVH ---
PROCEDURE: US ABDOMEN ([id number]) INDICATIONS: 81 year-old female with epigastric abdominal pain. TECHNIQUE: Real-time scanning was performed of the abdominal and retroperitoneal organs, with image documentatio n. COMPARISON: None. FINDINGS: Liver: Liver is normal in size and homogeneous in echotexture. Gallbladder: Several small dependent gallstones are present. Gallbladder wall thickness is still norm al at 1.8 mm. No pericholecystic fluid or sonographic Yip's sign. Biliary ducts: Intrahepatic bile ducts are non-dilated. Extrahepatic bile duct caliber measures up to 11 mm. Normal is 6-7 mm or less in diameter, or 10 mm or less post-cholecystectomy. Pancreas: Visualized portions of the pancreas are sonographically normal. Pancreatic tail is obscur ed by bowel gas. Spleen: Spleen is normal in size and homogeneous in echotexture. Kidneys: Kidneys are normal in size and echotexture. Right kidney measures 8.8 cm long; left kidney measures 8.9 cm long. No hydronephrosis or nephrolithiasis. No solid masses. Aorta: Visualized aorta is normal in caliber at less than 3 cm. Iliacs: Proximal common iliac arteries are normal in caliber at less than 2.5 cm. IVC: Intrahepatic inferior vena cava is patent. Miscellaneous: No free abdominal fluid. IMPRESSION: 1. Cholelithiasis, without sonographic evidence for acute cholecystitis. 2. Extrahepatic biliary ductal dilation up to 11 mm, concerning for distal common bile duct stricture or occult stone. Recommend correlation with liver function tests. Dictated by: Pako Brody M.D. on 02/08/2017 at 12:21 Approved by: Pako Brody M.D. on 02/08/2017 at 13:02
--- NOTE | 2017-02-08 15:52 | NUR ---
To MRI pt ordered for MRI-abdomen. pt transported via wheelchair, at about 1530. monitor worker informed of procedure.
--- NOTE | 2017-02-08 16:51 | DRSVH ---
PROCEDURE: MR ABDOMEN MRCP INDICATIONS: 81 year-old female with common bile duct dilation on recent ultrasound. TECHNIQUE: Coronal HASTE through the abdomen, axial 2-D FLASH in- and [id number], and breath-hold T2 FSE with fat saturation through the biliary system and pancreas. Oblique coronal and axial thin-slice HASTE, radial thick-slab HASTE centered on the extrahepatic bile ducts. Intravenous secretin: Not requested. COMPARISON: [facility], US, US ABDOMEN, 02/08/2017, 10:15. FINDINGS: Image quality: Multiple sequences are significantly degraded by patient motion. Pancreas and biliary system: No intrahepatic biliary ductal dilation. The extrahepatic bile duct is d ilated up to 1.1 cm as before. Coronal images demonstrate abrupt cutoff of the distal common bile du ct, just superior to its confluence with the nondilated main pancreatic duct Pancreas is normal in mo rphology, without adjacent soft tissue edema. Gallbladder wall thickness is normal. Other solid organs: Liver and spleen are normal in size. In and out of phase images demonstrate no fatty infiltration of the liver. No adrenal nodules. Both kidneys are normal in size, without hydron ephrosis. 7 mm lateral left renal cortical simple cyst is incidentally noted, as well as nearby 1.1 c m complex hemorrhagic or proteinaceous cyst. Nodes and vessels: No retroperitoneal or mesenteric adenopathy by size criteria. Aorta and inferior vena cava are normal in size. Bowel and peritoneum: Unenhanced bowel loops are normal in caliber. No free fluid. Lung bases: No basal pleural effusions. Heart size is normal. Bones and soft tissues: No ventral hernias. Bone marrow is of normal overall signal. IMPRESSION: 1. Persistent extrahepatic biliary ductal dilation up to 1.1 cm, with abrupt cut off just superior to its confluence with the main pancreatic duct. Differential diagnoses would include occult distal com mon bile duct stone or high grade stricture. Small neoplastic mass is also a possibility. Further jean paul luation with ERCP would be needed for diagnosis and treatment. 2. Small gallstones on ultrasound are not visualized on MRCP, presumably because of patient motion. 3. Small left lateral renal cortical simple cyst, as well as hemorrhagic or proteinaceous complex cys t. Findings were discussed with Dr. Mj Ruiz of gastroenterology at 1645 hrs. on February 08, 2017. Dictated by: Pako Brody M.D. on 02/08/2017 at 16:40 Approved by: Pako Brody M.D. on 02/08/2017 at 16:49
--- NOTE | 2017-02-08 17:47 | CONS ---
[address] [address] CONSULTATION REPORT PATIENT: ANASTASIYA CASTELLANO V : 1935 MR#: [id number] ADMIT: 02/06/2017 JOB ID: [id number] DATE OF SERVICE: 02/08/2017 REASON FOR CONSULTATION: 1. Abnormal ultrasound. 2. Epigastric pain. HISTORY OF PRESENT ILLNESS: This is an 81-year-old Bahraini-speaking female with a history of CHF, diabetes, hypertension, hypothyroidism, coronary artery disease with stenosis, prolonged QT with syncope, history of pericardial effusion, and arthritis who presents for consultation for epigastric pain and abnormal ultrasound. The patient was admitted on February 06, 2017, for shortness of breath, and fevers and chills, and recently hospitalized for a CHF exacerbation. The patient was found to have hospital-acquired pneumonia and is currently on antibiotics of cefepime at this point in time. The patient also complained of epigastric pain for the past one day, 10/10, intermittent sharp dull ache. The patient states that she also has some subjective fevers and chills as an outpatient. The patient never had an EGD. Unknown whether had a colonoscopy in the past. Denies family history of colon cancer, inflammatory bowel disease, or celiac disease. The patient had an abdominal ultrasound that was done on February 08, 2017, which showed cholelithiasis with extrahepatic biliary dilatation up to 11 mm concerning for common bile duct stricture or stone but was not seen. The patient's transaminases were normal. The patient denies rectal bleeding, nausea, vomiting, hematemesis, change in bowel habits, or unintentional weight loss. The patient also underwent an MRCP that was done today, which was read by myself and the radiologist, which showed that there were is a cut-off at the common bile duct where it joins the pancreatic duct concerning for stricture or stone. The patient presents for further evaluation. PAST MEDICAL HISTORY: As stated above. PAST SURGERIES: As stated above. ALLERGIES: HYDROCHLOROTHIAZIDE, TRIAMTERENE, PENICILLIN, CIPROFLOXACIN. HOME MEDICATIONS: Dorzolamide/timolol eyedrops, labetalol, Synthroid, losartan, pravastatin, aspirin. SOCIAL HISTORY: No smoking, alcohol, or drugs. FAMILY HISTORY: Negative for colon cancer. REVIEW OF SYSTEMS: The patient denies headache, blurred vision. Positive for nausea and vomiting. No chest pain. Positive for shortness of breath. Positive for abdominal pain. No skin rash or joint pain. PHYSICAL EXAMINATION: Vital signs upon presentation: Temperature is 36.4, pulse 50, respiratory rate 20, blood pressure 168/56, and 94% with 3 L nasal cannula. General: No acute distress. Head: No scars. Eyes: Anicteric. Throat: Supple. Lungs: Wheezes and crackles on the left side. Abdomen: Soft. Positive epigastric pain. Nondistended. Normoactive bowel sounds. Extremities: No cyanosis, clubbing, or edema. LABORATORIES: Show a white count 7.0, hemoglobin 10.9, hematocrit 32, platelet count of 150. Sodium 131, potassium 3.5, chloride 95, bicarb 20, BUN 23, creatinine 0.9, glucose 139. Calcium 8.5, total bili 0.8, AST 14, ALT 9, alk phos 70. Troponin negative x2. Total protein 6.7, albumin 3.8. Lipase 13. Free T4 1.51. PT 12.2, INR 1.1. ASSESSMENT: This is an 81-year-old Bahraini-speaking only female with a history of diabetes, congestive heart failure, hypertension, history of pericardial effusion, prolonged QT with syncope, coronary artery disease with stenosis, and hypothyroidism, admitted with shortness of breath with pneumonia. Presents for consultation with epigastric pain and nausea and vomiting. Given the MRCP findings showing that there is abrupt cut-off at the common bile duct where it joins the pancreatic duct, concerning for stricture or stone with patient's epigastric pain, nausea, and vomiting. I do recommend an ERCP at this point in time. Even though the patient's transaminases are normal, the patient does meet strong criteria for an ERCP given the abnormal MRCP which showed these findings. RECOMMENDATIONS: 1. Would recommend transfer to a tertiary center for ERCP for the abnormal MRCP showing an abrupt cut-off of the common bile duct along pancreatic duct, very concerning for possible stricture or common bile duct stone. Ultrasound does show multiple stones within the gallbladder. 2. Continue cefepime at this point in time.
[2017-02-08] MEDS: Insulin GLARgine 100 Unit/mL Syringe SUBQ SCH (21:00)
--- NOTE | 2017-02-08 21:39 | NUR ---
Restless Pt suddenly became very restless at 2030 following inital meeting with family with an freelance interpreter/translator. Pt c/o pain. Given zofran and morphine Pt remained very restless. She has had ongoing confusion throughout the day. She does not appear to recognize family. Only wants to sit up and attempts to get out of the bed. Report given to Alexander Iqbal. Plan to adminster additional morphine to treat pt's c/o abdominal pain. Unable to obtain repeat set of vital signs due to restlessness. HR 75. 96% on RA.
[2017-02-09 00:05] VITALS: BP 176/67; PULSE 65; RESP 14; O2SAT 94
[2017-02-09] MEDS: Cefepime Inj 2,000 MG in Dextrose 5% Minibag Plus 100 ML IV SCH (00:46)
[2017-02-09 04:03] VITALS: BP 192/74; PULSE 68; RESP 14; O2SAT 96
[2017-02-09 06:07] VITALS: PULSE 68
[2017-02-09 06:54] LABS: BASOPHILS % (AUTO) 0.7 % (0-3); EOSINOPHILS % (AUTO) 14.7 % (0-5); MONOCYTES % (AUTO) 15.4 % (4-12); Mean Corpuscular Hemoglobin 28.4 pg (27.0-35.0); Mean Corpuscular Volume 83.5 fL (81-100); Platelet Count 156 bil/L (150-400)
[2017-02-09] MEDS ORDERED: Labetalol 5 mg/mL 20 mL Inj IVPUSH PRN (07:25)
--- NOTE | 2017-02-09 07:50 | NUR ---
hypertension/restless Blood pressure reading 206/72. Pt. refused po medications. Pt. confused and restless. Pt.'s family reporting that the pt. is groaning, holding on to her belly. Sohan pain score 5/10. Pt. 's family stating that she is alert and oriented at baseline, "the pain medication is doing this to her." MD made aware. Morphine was discontinued. Lobatalol IV given. Pt. also itching; has rash on her back. Benadryl IV has been given per MD order. Family at bedside, assisting with pt. needs. Will continue to monitor.
[2017-02-09 07:55] VITALS: BP 206/72; PULSE 78; RESP 15; O2SAT 94
[2017-02-09] MEDS: Insulin LISPRO 300 Unit/3 mL Inj SUBQ SCH (08:00)
--- NOTE | 2017-02-09 08:08 | PCM.DC.MED ---
Discharge Summary Date of Service Feb 09, 2017 Dates of Hospitalization Date of Hospital Admission Feb 06, 2017 at 00:50 Date of Discharge: Feb 09, 2017 Providers: Admitting Physician: Evie Winn DO Primary Care Physician: Bessie Valdivia DO Attending Physician: Spencer Mckeon MD Procedures Other Diagnostics US abd IMPRESSION: 1. Cholelithiasis, without sonographic evidence for acute cholecystitis. 2. Extrahepatic biliary ductal dilation up to 11 mm, concerning for distal common bile duct stricture or occult stone. Recommend correlation with liver function tests. MRCP IMPRESSION: 1. Persistent extrahepatic biliary ductal dilation up to 1.1 cm, with abrupt cut off just superior to its confluence with the main pancreatic duct. Differential diagnoses would include occult distal common bile duct stone or high grade stricture. Small neoplastic mass is also a possibility. Further evaluation with ERCP would be needed for diagnosis and treatment. 2. Small gallstones on ultrasound are not visualized on MRCP, presumably because of patient motion. 3. Small left lateral renal cortical simple cyst, as well as hemorrhagic or proteinaceous complex cyst. Brief History Patient is an 81-year-old female with a history of CHF, diabetes, and hypertension who presented to the emergency department complaining of fever with chills. Patient is a Luxembourger-speaking only patient; history was obtained via acid wash operator (acid wash operator number [id number]). Patient was a poor historian with multiple conflicting answers, even when clarified with the acid wash operator. Patient presented today feeling as if she has fever and chills. Symptoms started today. She has a recent hospital admission for CHF exacerbation, discharged 01/31/2017. Patient admits to some difficulty breathing earlier today which has resolved She denies any other symptoms such as cough, headache, nausea, vomiting, constipation, diarrhea, dysuria, chest pain. Hospital Course Patient is an 81-year-old female presenting with fever and chills. She has a history significant for recent hospitalization for CHF exacerbation. Patient has diabetes and hypertension. #. Chest/abdominal pain - likely originating from the bild duct occlusion - patient has been npo, MRCP as noted above - LFTS, bili normal - US showed no signs of cholecystitis - NPO for now - GI consulted, rec: ERCP , to be done at outside facility - discussed the case with hospitalist Dr. Newman at [facility]. Transfer today. #. Hospital-acquired pneumonia, present upon admission and active. - Reported shortness of breath, wheezing, crackles, fever, and chest x-ray suggestive of bilateral pneumonia - Leukocytosis of 18.4, trended down to be normal - Recent hospitalization with discharge date of 01/30/2017 is suggestive of hospital-acquired - Patient received cefepime and vancomycin in the emergency department along with 1 L of fluid - Vancomycin to be dosed by pharmacist tomorrow, stop after one dose. Nares swab. - 2 mg cefepime IV every 8 hours - Blood cultures no growth so far - Sputum cultures ordered and pending. -Viral PCR negative, nares MRSA negative. - given cefepime, procalcitonin trended down. Cefepime stopped just before transfer as patient has known allergy to pencillin and has been showing signs of mild allergic reaction. #HTN - blood pressure elevated today, patient did not take any of her home meds last night (refused as per nursing) - given labetolol prn IV # Itching - started after patient got morphine, but could be related to cefepime - benadryl prn #. Pleuritic chest pain, new and active, improving -EKG, trop, morphine, lasix and nitro. - The pain did not correlate to the rails on her right lung. It is unclear what the etiology of her pain was. Stop the heparin and Plavix at this point. Continue to treat her for pneumonia and follow clinically. She has any further left-sided pain or neck pain might consider a stress test. #. Acute on chronic diastolic CHF, present upon admission and improved - Patient has known history of CHF. -Monitor fluid status regularly, stop IVF and lasix 20 mg IV once given #. Hypothyroidism, present on admission and stable. - Patient has history of hypothyroidism -Continue home medications -TSH low, T4 levels normal Exam Vital Signs (Last) Date Time Temp Pulse Resp B/P Pulse Ox O2 Delivery O2 Flow Rate FiO2 02/09/17 06:07 68 02/09/17 04:03 36.6 14 192/74 96 Room Air 02/09/17 00:05 1.00 Test 02/05/17 23:13 02/05/17 23:27 02/06/17 00:00 02/06/17 05:40 Hold Moser Top Tube Received (Received) Urine Color Straw (YELLOW) Urine Appearance Clear (CLEAR,HAZY) Urine pH 6.5 (5.0-8.0) Urine Specific [place] 1.011 (1.003-1.035) Urine Protein Negativemg/dL (NEG,TRACE) Urine Glucose (UA) Negativemg/dL (NEGATIVE) Urine Ketones Negativemg/dL (NEGATIVE) Urine Occult Blood Negative (NEGATIVE) Urine Nitrite Negative (NEGATIVE) Urine Bilirubin Negative (NEGATIVE) Urine Urobilinogen Normalmg/dL (NORMAL) Urine Leukocyte Esterase Negative (NEGATIVE) Urine RBC 0-2/hpf (0-2) Urine WBC 0-5/hpf (0-5) Urine Epithelial Cells Occasional/hpf (NONE-MOD) Urine Crystals None seen (NONE SEEN) Urine Bacteria None/hpf (NONE-FEW) Urine Hyaline Casts None/lpf (NONE) Urine Granular Casts None seen (NONE SEEN) Urine Waxy Casts None seen (NONE SEEN) Urine Red Blood Cell Casts None seen (NONE SEEN) Urine White Blood Cell Casts None seen (NONE SEEN) Urine Mucus None seen (None Seen) Urine Trichomonas None seen (NONE SEEN) Urine Yeast None (NONE SEEN) Urinalysis Comment None Urine Culture Reflexed Not indicated Hemoglobin A1c 7.4% (4.8-5.6) Thyroid Stimulating Hormone (TSH) 0.037uIU/mL (0.450-4.500) Test 02/07/17 05:11 02/07/17 11:01 02/08/17 09:20 02/09/17 05:47 Troponin T 0.010ug/L (0.0-0.011) Activated Partial Thromboplast Time 37.6sec (22.8-33.0) Prothrombin Time 12.2sec (8.1-12.5) Prothromb Time International Ratio 1.14ratio Lipase 13U/L (13-60) Free Thyroxine 1.51ng/dL (0.82-1.77) White Blood Count 6.7th/mm3 (3.8-10.1) Red Blood Count 3.95mil/mm3 (3.90-5.20) Hemoglobin 11.2g/dL (12.0-15.6) Hematocrit 33.0% (35.0-46.0) Mean Corpuscular Volume 83.5fL (81-100) Mean Corpuscular Hemoglobin 28.4pg (27.0-35.0) Mean Corpuscular Hemoglobin Concent 33.9% (32.0-37.0) Red Cell Distribution Width 13.7% (12.3-15.4) Platelet Count 156bil/L (150-400) Neutrophils (%) (Auto) 47.0% (40-74) Lymphocytes (%) (Auto) 22.2% (14-46) Monocytes (%) (Auto) 15.4% (4-12) Eosinophils (%) (Auto) 14.7% (0-5) Basophils (%) (Auto) 0.7% (0-3) Sodium Level 135mEq/L (134-144) Potassium Level 3.4mEq/L (3.5-5.2) Chloride Level 99mEq/L (97-108) Carbon Dioxide Level 20mmol/L (18-29) Blood Urea Nitrogen 19mg/dL (8-27) Creatinine 0.91mg/dL (0.57-1.00) Estimat Glomerular Filtration Rate 85mL/min (>59) Glucose Level 89mg/dL (60-99) Calcium Level 8.8mg/dL (8.5-10.1) Total Bilirubin 0.8mg/dL (0.0-1.2) Aspartate Amino Transf (AST/SGOT) 13U/L (0-50) Alanine Aminotransferase (ALT/SGPT) 8U/L (0-32) Alkaline Phosphatase 66U/L (25-165) Total Protein 6.9g/dL (6.4-8.4) Albumin 3.8g/dL (3.4-5.0) Procalcitonin 0.92ng/mL (0.00-0.08) Discharge Medications Discharge Medications Brimonidine Tartrate/Timolol (Combigan Eye Drops) 5 Ml Drops 5 ML AFFECT_EYE BID (Reported) Dorzolamide HCl/Timolol Maleat (Dorzolamide-Timolol Eye Drops) 10 Ml Drops 1 GTT BOTH_EYES BID Prescribed by: STORM DEJESUS DO Labetalol (Labetalol) 100 Mg Tablet 100 MG PO BID Prescribed by: STROM DEJESUS DO Latanoprost (Latanoprost) 2.5 Ml Drops 1 GTT AFFECT_EYE HS (Reported) Levothyroxine (Synthroid) 75 Mcg Tablet 75 MCG PO DAILYAC Prescribed by: KYRA SWEET MD Losartan Potassium (Losartan Potassium) 50 Mg Tablet 50 MG PO DAILY (Reported) Pravastatin (Pravastatin) 20 Mg Tablet 20 MG PO HS (Reported) As needed Aspirin (Aspirin) 81 Mg Tablet 81 MG PO DAILY PRN PRN PAIN/FEVER (Reported) Followup Plan Follow-up with PCP in: 2 weeks Time spent 35 mins Spencer Mckeon MD Feb 09, 2017 08:07
--- NOTE | 2017-02-09 08:09 | PCM.DIMED ---
Discharge Instructions Date of Service Feb 09, 2017 Dates of Hospitalization Feb 06, 2017 at 00:50 Discharge Diagnosis Discharge Diagnosis Biliary duct dilation 2/2 stone vs stricture Patient Instructions Follow-up with PCP in: 2 weeks Spencer Mckeon MD Feb 09, 2017 08:09
[2017-02-09 08:20] VITALS: PULSE 67; RESP 18; O2SAT 95
[2017-02-09] MEDS: Brimonidine 0.2% 5 mL Ophthalmic Solution BOTH_EYES SCH (08:30)
[2017-02-09] MEDS: Timolol 0.5% 5 mL Ophthalmic Solution BOTH_EYES SCH (08:30)
[2017-02-09] MEDS: Dorzolamide 2% 10 mL Ophthalmic Solution BOTH_EYES SCH (08:30)
[2017-02-09] MEDS: Heparin 5,000 Unit/mL Inj SUBQ SCH (08:30)
--- NOTE | 2017-02-09 10:15 | NUR ---
pain Pt. continues to be restless and in pain per family and upon assessment. Pt. was given toradol 30mg IV x1 . Given warm blankets for comfort. Family members at bedside. Also noted that IV is leaking. IV therapy notified. Will continue to monitor.
--- NOTE | 2017-02-09 11:45 | NUR ---
pain/consent and transfer Pt. calmed for a little while, then became restless again. Pt. given tylenol 326 suppository. In bed. IV therapy started new IV site to right upper forearm. Son, Narciso, signed consent for transport, will be going along with pt. Last pressure taken and reading 196/73.
[2017-02-09 11:56] VITALS: BP 196/73
--- NOTE | 2017-02-09 12:00 | NUR ---
Transfer/report BLS arrival; given report. Report given to Barbara, registration at [facility]. Pt.'s belongings given to family members. Pt. saline locked. Appearing more calm. Transferred to stretcher. Approx. discharge time 1208.
--- NOTE | 2017-02-09 12:18 | NUR ---
Social Work-discharge: Data& assessment:EMR reviewed. Pt is on day 3 of hospitalization for Pneumonia per H&P. SW updated by access coordinator that pt is being transferred to [facility] today. No other SW needs identified. Plan:Pt to transfer to [facility] today via BLS. No other SW needs identified. HARVINDER Lanza
== END 2017-02-09 12:20 | disposition short-term general hospital (02) | DRG 291 ==
LOC: SED 22:18 → MPC 02-06 00:50
PROVIDERS: ADMIT Internal Medicine; ATTEND Internal Medicine
DX: I50.33 Acute on chronic diastolic (congestive) heart failure (principal); J18.9 Pneumonia, unspecified organism; K80.21 Calculus of gallbladder without cholecystitis with obstruction; D50.9 Iron deficiency anemia, unspecified; I25.10 Atherosclerotic heart disease of native coronary artery without angina pectoris; E11.9 Type 2 diabetes mellitus without complications; E78.5 Hyperlipidemia, unspecified; I10 Essential (primary) hypertension; E03.9 Hypothyroidism, unspecified; Z79.82 Long term (current) use of aspirin